=== PATIENT | male | born 1950 | race Caucasian/White ===

== ENCOUNTER 2020-09-12 16:05 | Emergency (ER) | payer MEDICARE, BC ==
--- NOTE | 2020-09-12 18:51 | EDM.PDOC ---
ED HPI GENERAL MEDICAL PROBLEM - General Chief Complaint: Respiratory Problem Stated Complaint: MAYBE POSITIVE-CHILS/FEVER ACHY Time Seen by Provider: 09/12/20 16:30 Source of Information: Reports: Patient, RN Notes Reviewed History Limitations: Reports: No Limitations - History of Present Illness INITIAL COMMENTS - FREE TEXT/NARRATIVE: Patient is a 70-year-old male presenting to the emergency department with complaints of fever, body aches, and shortness of breath. Symptoms began yesterday. He denies feeling short of breath at rest, however any exertion causes him to be winded. He was febrile yesterday, however he does not know what his exact temperature was. He was Covid tested this morning you state send out to the drive-through testing, however his shortness of breath became significant enough that he thought he should be seen. Patient has a past medical history significant for a right-sided stroke with left-sided hemiplegia, A. fib with a pacemaker/defibrillator. COPD, hypertension. Oxygen saturation on triage was 88%. He has been varying from 86 to 90% on room air since triage. He denies any chest pain or dizziness. 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 - Related Data Allergies Allergy/AdvReac Type Severity Reaction Status Date / Time IV contrast Allergy Severe Hives Uncoded 09/12/20 16:34 Home Meds: Home Meds Cholecalciferol (Vitamin D3) [Vitamin D3] 1,000 unit PO DAILY 09/12/20 [History] Clopidogrel [Plavix] 75 mg PO DAILY 09/12/20 [History] Furosemide [Lasix] 20 mg PO DAILY 09/12/20 [History] Potassium Chloride [Klor-Con M20] 20 meq PO DAILY 09/12/20 [History] Sertraline [Zoloft] 50 mg PO DAILY 09/12/20 [History] Ubidecarenone [Coq-10] 1 tab PO DAILY 09/12/20 [History] Warfarin Sodium [Jantoven] 4 mg PO DAILY 09/12/20 [History] carvediloL [Carvedilol] 25 mg PO BID 09/12/20 [History] Past Medical History Cardiovascular History: Reports: Afib, Heart Failure, Hypertension, Other (See Below) Other Cardiovascular History: carotid endartectomy/AICD Respiratory History: Reports: COPD, Pneumothorax Neurological History: Reports: CVA Other Neuro History: rt sided with left hemiplegia Oncologic (Cancer) History: Reports: Bladder - Past Surgical History HEENT Surgical History: Reports: Tonsillectomy GI Surgical History: Reports: Appendectomy ED ROS GENERAL - Review of Systems Review Of Systems: See Below Constitutional: Reports: Fever, Chills, Fatigue HEENT: Reports: No Symptoms Respiratory: Reports: Shortness of Breath, Cough. Denies: Wheezing, Pleuritic Chest Pain Cardiovascular: Reports: Dyspnea on Exertion. Denies: Chest Pain, Lightheadedness, Syncope Endocrine: Reports: No Symptoms GI/Abdominal: Reports: Diarrhea. Denies: Abdominal Pain, Nausea, Vomiting : Reports: No Symptoms Musculoskeletal: Reports: No Symptoms Skin: Reports: No Symptoms Neurological: Reports: No Symptoms Psychiatric: Reports: No Symptoms Hematologic/Lymphatic: Reports: No Symptoms Immunologic: Reports: No Symptoms ED EXAM, GENERAL - Physical Exam Exam: See Below Exam Limited By: No Limitations General Appearance: Alert, WD/WN, No Apparent Distress Respiratory/Chest: No Respiratory Distress, Lungs Clear, No Accessory Muscle Use, Chest Non-Tender, Decreased Breath Sounds (Diminished in bilateral bases) Cardiovascular: Normal Peripheral Pulses, Regular Rate, Rhythm, No Edema, No Gallop, No JVD, No Murmur, No Rub GI/Abdominal: Normal Bowel Sounds, Soft, Non-Tender, No Organomegaly, No Distention, No Abnormal Bruit, No Mass Neurological: Alert, Oriented, CN II-XII Intact, Normal Cognition, Normal Gait, Normal Reflexes, No Motor/Sensory Deficits Psychiatric: Normal Affect, Normal Mood Skin Exam: Warm, Dry, Intact, Normal Color, No Rash Course - Vital Signs Last Recorded V/S: Last Vital Signs Temp 98.3 F 09/12/20 16:25 Pulse 70 09/12/20 19:53 Resp 28 H 09/12/20 16:25 BP 195/94 H 09/12/20 19:53 Pulse Ox 88 L 09/12/20 16:25 - Orders/Labs/Meds Orders: Active Orders 24 hr Category Date Time Status EKG Documentation Completion [RC] STAT Care 09/12/20 16:37 Active Chest 1V Frontal [CR] Stat Exams 09/12/20 16:37 Taken Labs: Laboratory Tests 09/12/20 09/12/20 09/12/20 Range/Units 17:00 17:00 17:00 WBC 4.75 (4.23-9.07) K/mm3 RBC 5.18 (4.63-6.08) M/mm3 Hgb 14.7 (13.7-17.5) gm/dl Hct 48.1 (40.1-51.0) % MCV 92.9 H (79.0-92.2) fl MCH 28.4 (25.7-32.2) pg MCHC 30.6 L (32.2-35.5) g/dl RDW Std Deviation 47.2 H (35.1-43.9) fL Plt Count 152 L (163-337) K/mm3 MPV 9.8 (9.4-12.3) fl Neut % (Auto) 60.1 (34.0-67.9) % Lymph % (Auto) 14.3 L (21.8-53.1) % Crane % (Auto) 21.9 H (5.3-12.2) % Eos % (Auto) 2.7 (0.8-7.0) Baso % (Auto) 0.6 (0.1-1.2) % Neut # (Auto) 2.85 (1.78-5.38) K/mm3 Lymph # (Auto) 0.68 L (1.32-3.57) K/mm3 Crane # (Auto) 1.04 H (0.30-0.82) K/mm3 Eos # (Auto) 0.13 (0.04-0.54) K/mm3 Baso # (Auto) 0.03 (0.01-0.08) K/mm3 Manual Slide Review Abnormal smear PT (9.7-12.0) SECONDS INR D-Dimer, Quantitative 0.34 (0.19-0.50) mg/L Sodium 140 (136-145) mEq/L Potassium 4.1 (3.5-5.1) mEq/L Chloride 105 (98-107) mEq/L Carbon Dioxide 26 (21-32) mEq/L Anion Gap 13.1 (5-15) BUN 22 H (7-18) mg/dL Creatinine 1.6 H (0.7-1.3) mg/dL Est Cr Clr Drug Dosing 46.48 mL/min Estimated GFR (MDRD) 43 (>60) mL/min BUN/Creatinine Ratio 13.8 L (14-18) Glucose 102 (83-115) mg/dL Calcium 8.0 L (8.5-10.1) mg/dL Ferritin (26-388) ng/ml Total Bilirubin 0.6 (0.2-1.0) mg/dL AST 19 (15-37) U/L ALT 20 (16-63) U/L Alkaline Phosphatase 61 (46-116) U/L Lactate Dehydrogenase (85-227) U/L Troponin I < 0.017 (0.00-0.056) ng/mL C-Reactive Protein 2.0 H* (<1.0) mg/dL NT-Pro-B Natriuret Pep (0-125) pg/mL Total Protein 6.3 L (6.4-8.2) g/dl Albumin 3.1 L (3.4-5.0) g/dl Globulin 3.2 gm/dL Albumin/Globulin Ratio 1.0 (1-2) SARS-CoV-2 RNA (BEBETO) (NEGATIVE) 09/12/20 09/12/20 09/12/20 Range/Units 17:00 17:00 17:00 WBC (4.23-9.07) K/mm3 RBC (4.63-6.08) M/mm3 Hgb (13.7-17.5) gm/dl Hct (40.1-51.0) % MCV (79.0-92.2) fl MCH (25.7-32.2) pg MCHC (32.2-35.5) g/dl RDW Std Deviation (35.1-43.9) fL Plt Count (163-337) K/mm3 MPV (9.4-12.3) fl Neut % (Auto) (34.0-67.9) % Lymph % (Auto) (21.8-53.1) % Crane % (Auto) (5.3-12.2) % Eos % (Auto) (0.8-7.0) Baso % (Auto) (0.1-1.2) % Neut # (Auto) (1.78-5.38) K/mm3 Lymph # (Auto) (1.32-3.57) K/mm3 Crane # (Auto) (0.30-0.82) K/mm3 Eos # (Auto) (0.04-0.54) K/mm3 Baso # (Auto) (0.01-0.08) K/mm3 Manual Slide Review PT 29.3 H (9.7-12.0) SECONDS INR 2.79 D-Dimer, Quantitative (0.19-0.50) mg/L Sodium (136-145) mEq/L Potassium (3.5-5.1) mEq/L Chloride (98-107) mEq/L Carbon Dioxide (21-32) mEq/L Anion Gap (5-15) BUN (7-18) mg/dL Creatinine (0.7-1.3) mg/dL Est Cr Clr Drug Dosing mL/min Estimated GFR (MDRD) (>60) mL/min BUN/Creatinine Ratio (14-18) Glucose (83-115) mg/dL Calcium (8.5-10.1) mg/dL Ferritin 80 (26-388) ng/ml Total Bilirubin (0.2-1.0) mg/dL AST (15-37) U/L ALT (16-63) U/L Alkaline Phosphatase (46-116) U/L Lactate Dehydrogenase 239 H (85-227) U/L Troponin I (0.00-0.056) ng/mL C-Reactive Protein (<1.0) mg/dL NT-Pro-B Natriuret Pep (0-125) pg/mL Total Protein (6.4-8.2) g/dl Albumin (3.4-5.0) g/dl Globulin gm/dL Albumin/Globulin Ratio (1-2) SARS-CoV-2 RNA (BEBETO) (NEGATIVE) 09/12/20 09/12/20 09/12/20 Range/Units 17:00 17:40 21:05 WBC (4.23-9.07) K/mm3 RBC (4.63-6.08) M/mm3 Hgb (13.7-17.5) gm/dl Hct (40.1-51.0) % MCV (79.0-92.2) fl MCH (25.7-32.2) pg MCHC (32.2-35.5) g/dl RDW Std Deviation (35.1-43.9) fL Plt Count (163-337) K/mm3 MPV (9.4-12.3) fl Neut % (Auto) (34.0-67.9) % Lymph % (Auto) (21.8-53.1) % Crane % (Auto) (5.3-12.2) % Eos % (Auto) (0.8-7.0) Baso % (Auto) (0.1-1.2) % Neut # (Auto) (1.78-5.38) K/mm3 Lymph # (Auto) (1.32-3.57) K/mm3 Crane # (Auto) (0.30-0.82) K/mm3 Eos # (Auto) (0.04-0.54) K/mm3 Baso # (Auto) (0.01-0.08) K/mm3 Manual Slide Review PT 28.8 H (9.7-12.0) SECONDS INR 2.75 D-Dimer, Quantitative (0.19-0.50) mg/L Sodium (136-145) mEq/L Potassium (3.5-5.1) mEq/L Chloride (98-107) mEq/L Carbon Dioxide (21-32) mEq/L Anion Gap (5-15) BUN (7-18) mg/dL Creatinine (0.7-1.3) mg/dL Est Cr Clr Drug Dosing mL/min Estimated GFR (MDRD) (>60) mL/min BUN/Creatinine Ratio (14-18) Glucose (83-115) mg/dL Calcium (8.5-10.1) mg/dL Ferritin (26-388) ng/ml Total Bilirubin (0.2-1.0) mg/dL AST (15-37) U/L ALT (16-63) U/L Alkaline Phosphatase (46-116) U/L Lactate Dehydrogenase (85-227) U/L Troponin I (0.00-0.056) ng/mL C-Reactive Protein (<1.0) mg/dL NT-Pro-B Natriuret Pep 3003 H (0-125) pg/mL Total Protein (6.4-8.2) g/dl Albumin (3.4-5.0) g/dl Globulin gm/dL Albumin/Globulin Ratio (1-2) SARS-CoV-2 RNA (BEBETO) Positive H (NEGATIVE) Meds: Medications Discontinued Medications Generic Name Dose Route Start Last Admin Trade Name Codi PRN Reason Stop Dose Admin Carvedilol 25 mg 09/12/20 19:48 09/12/20 19:53 Coreg PO 09/12/20 19:49 25 mg ONETIME ONE Administration Dexamethasone 6 mg 09/12/20 19:00 09/12/20 19:19 Dexamethasone IV 09/12/20 19:01 6 mg ONETIME ONE Administration Furosemide 20 mg 09/12/20 20:08 09/12/20 20:17 Lasix IVPUSH 09/12/20 20:09 20 mg ONETIME ONE Administration Sertraline HCl 50 mg 09/12/20 20:49 09/12/20 21:03 Zoloft PO 09/12/20 20:50 50 mg ONETIME ONE Administration Warfarin Sodium 4 mg 09/12/20 20:47 09/12/20 21:03 Coumadin PO 09/12/20 20:48 4 mg ONETIME ONE Administration - Re-Assessments/Exams Free Text/Narrative Re-Assessment/Exam: Patient is a 70-year-old male presenting to the emergency department with complaints of fever, cough, shortness of breath. Symptoms started yesterday. He does have a fairly significant past medical history including CVA with left- sided hemiplegia, A. fib with a pacemaker/defibrillator, collapsed lung, COPD, high blood pressure. He is currently on Coumadin. States his INR was checked last week. Patient's oxygen saturations have been ranging from 85 to 90% on room air. Lung sounds are diminished in the bases. Presentation is highly suspicious for Covid. I have ordered a CBC, CMP, CRP, D-dimer, troponin, EKG, chest x-ray, and a 1 hour Covid test. 09/12/20 20:20 Hematology was significant for BUN 22, creatinine 1.6, LDH 239, CRP 2.0, proBNP 3003. Patient is Covid positive. Chest x-ray shows nonspecific bibasilar consolidation consistent with atelectasis, edema, or pneumonia. Left pleural effusion is present. Patient is currently on 2 L of oxygen satting in the mid to upper 90s. I do feel that he would benefit from a hospital admission with treatment with dexamethasone on remdesivir as he is only 2 days into the course of his illness and he is currently hypoxic. I have ordered dexamethasone 6 mg IV as well as his home dose of carvedilol. I will give him Lasix 20 mg IV given his hypoxia, shortness of breath, and elevated proBNP. He normally takes Lasix 25 mg p.o. at home. We have called essentially every hospital facility in [place] and unfortunately there are no beds available. He is currently on a wait list at [facility]. Patient had stated that he would like to go home with home oxygen and steroids, however after visiting with his who is a power of coal chute worker, she states that his decision-making skills are impaired since his stroke. She does not want him to be discharged home with home oxygen and would like him admitted to a hospital. We will continue to look for hospital availability. If none are available, he will have to stay in the emergency department until [facility] contacts us or another bed becomes available. 09/12/[id number] Spoke with Dr. Henry at [facility]. He has accepted the patient for transfer. Unfortunately, they do not have air ambulance available through their facility. We will work on arranging air transport for the patient. Departure - Departure Time of Disposition: 21:35 Disposition: DC/Tfer to Acute Hospital 02 Condition: Good Clinical Impression: Pneumonia due to COVID-19 virus - Discharge Information Referrals: Vandana Gonzalez MD [Primary Care Provider] - Forms: ED Department Discharge Sepsis Event Note (ED) - Evaluation Sepsis Screening Result: Possible Sepsis Risk - Focused Exam Vital Signs: Vital Signs Temp Pulse Pulse Resp BP BP Pulse Ox 09/12/20 19:53 70 195/94 H 09/12/20 16:25 98.3 F 70 28 H 153/79 H 88 L - My Orders Last 24 Hours: My Active Orders 09/12/20 16:37 EKG Documentation Completion [RC] STAT Chest 1V Frontal [CR] Stat - Assessment/Plan Last 24 Hours: My Active Orders 09/12/20 16:37 EKG Documentation Completion [RC] STAT Chest 1V Frontal [CR] Stat
[2020-09-12] MEDS ORDERED: Dexamethasone 4 MG/ML 5 ML MDV IV ONE (19:00)
[2020-09-12] MEDS ORDERED: Carvedilol 12.5 MG Tab PO ONE (19:48)
[2020-09-12] MEDS ORDERED: Furosemide 20 MG/2 ML VIAL IVPUSH ONE (20:08)
[2020-09-12] MEDS ORDERED: Warfarin 4 MG Tab PO ONE (20:47)
[2020-09-12] MEDS ORDERED: Sertraline 50 MG Tab PO ONE (20:49)
--- NOTE | 2020-09-13 08:41 | CR ---
PROCEDURE INFORMATION: Exam: XR Chest, 1 View Exam date and time: 09/12/2020 4:23 PM Age: 70 years old Clinical indication: Shortness of breath; Patient HX: Covid precautions TECHNIQUE: Imaging protocol: XR of the chest Views: 1 view. COMPARISON: No relevant prior studies available. FINDINGS: Tubes, catheters and devices: A pacemaker device is present, and its leads are in appropriate position. Lungs: Nonspecific bibasilar consolidation is present, consistent with atelectasis, edema, or pneumonia. Pleural space: Left pleural effusion is present. Heart/Mediastinum: The heart demonstrates mild diffuse enlargement. Vasculature: The vasculature demonstrates diffuse mild atherosclerotic calcification. Bones/joints: Unremarkable. IMPRESSION: 1. Nonspecific bibasilar consolidation is present, consistent with atelectasis, edema, or pneumonia. 2. Left pleural effusion is present. Thank you for allowing us to participate in the care of your patient. Dictated and Authenticated by: Diego Jones DO 09/12/2020 5:58 PM Central Time ([place] & [place]) MTDD
== END 2020-09-13 00:15 ==
LOC: JD.ED 16:05
DX: U07.1 COVID-19 (principal); J12.89 Other viral pneumonia; I11.0 Hypertensive heart disease with heart failure; I50.9 Heart failure, unspecified; J44.9 Chronic obstructive pulmonary disease, unspecified; Z86.73 Personal history of transient ischemic attack (TIA), and cerebral infarction without residual deficits; Z91.041 Radiographic dye allergy status; Z79.02 Long term (current) use of antithrombotics/antiplatelets; Z79.899 Other long term (current) drug therapy; Z79.01 Long term (current) use of anticoagulants
CPT/HCPCS: 36415; 71045; 80053; 82728; 83615; 83880; 84484; 85025; 85379; 85610; 86140; 93005; 96374; 96375; 99285; A9270; J1100; J1940; U0002; 93010; 99284

== ENCOUNTER 2021-03-08 12:11 | Emergency (ER) | payer MEDICARE, BC ==
--- NOTE | 2021-03-08 13:05 | EDM.PDOC ---
ED HPI GENERAL MEDICAL PROBLEM - General Chief Complaint: Lower Extremity Injury/Pain Stated Complaint: LEG PAIN Time Seen by Provider: 03/08/21 12:35 Source of Information: Reports: Patient, RN Notes Reviewed History Limitations: Reports: No Limitations - History of Present Illness INITIAL COMMENTS - FREE TEXT/NARRATIVE: Patient is a 70-year-old male who presents to the ER for his right knee pain. Patient has multiple medical issues, he has had a previous stroke with a left- sided neurological deficit. Recently had a defibrillator replaced to his right chest, and is subsequently on doxycycline for suspected infection, had COVID-19 at the end of 2019, and is now subsequently on oxygen as well. Patient was told that he should not exert more than 5 pounds of force or lift more than 5 pounds with his right hand after the defibrillator was placed 1 week ago. Since then, he has been struggling to try to get up and out of chairs with handles due to this right arm restriction. Notes that he has pain in his right lateral knee, as they feel he might be trying to overcompensate on the right side for this. Also notes that he has [id number] issues with his left knee, and sees Dr. العراقي for injections of the left knee. Those seem to help when he does take it. He did take Tylenol for the right knee pain, this seemed to help as well. Patient was feeling well prior to this and denies any fevers or chills, cough or worsening shortness of breath. The symptoms all started at around 4 or 5 PM yesterday. He has recently been started on his Plavix, and will resume his Coumadin shortly again. Right Leg Pain Score (Numeric/FACES): 8 - Related Data Allergies Allergy/AdvReac Type Severity Reaction Status Date / Time IV contrast Allergy Severe Hives Uncoded 09/12/20 16:34 Home Meds: Home Meds Cholecalciferol (Vitamin D3) [Vitamin D3] 1,000 unit PO DAILY 09/12/20 [History] Clopidogrel [Plavix] 75 mg PO DAILY 09/12/20 [History] Furosemide [Lasix] 20 mg PO DAILY 09/12/20 [History] Potassium Chloride [Klor-Con M20] 20 meq PO DAILY 09/12/20 [History] Sertraline [Zoloft] 50 mg PO DAILY 09/12/20 [History] Ubidecarenone [Coq-10] 1 tab PO DAILY 09/12/20 [History] Warfarin Sodium [Jantoven] 4 mg PO DAILY 09/12/20 [History] carvediloL [Carvedilol] 25 mg PO BID 09/12/20 [History] Hydrocodone/Acetaminophen [Hydrocodone-Acetamin 5-325 mg] 1 each PO Q6H PRN #12 tablet 03/08/21 [Rx] Past Medical History Cardiovascular History: Reports: Afib, Heart Failure, Hypertension, Other (See Below) Other Cardiovascular History: carotid endartectomy/AICD Respiratory History: Reports: COPD, Pneumonia, Recurrent, Pneumothorax Genitourinary History: Reports: Urinary Incontinence Musculoskeletal History: Reports: Fracture Neurological History: Reports: CVA Other Neuro History: rt sided with left hemiplegia Oncologic (Cancer) History: Reports: Bladder, Squamous Cell Carcinoma Other Dermatologic History: skin cancer. - Infectious Disease History Infectious Disease History: Reports: Chicken Pox, Measles, Mumps, Novel Coronavirus - Past Surgical History HEENT Surgical History: Reports: Tonsillectomy Cardiovascular Surgical History: Reports: Other (See Below) Other Cardiovascular Surgeries/Procedures: defibrillator. GI Surgical History: Reports: Appendectomy Musculoskeletal Surgical History: Reports: Other (See Below) Other Musculoskeletal Surgeries/Procedures:: hip fx Dermatological Surgical History: Reports: Skin Biopsy Social & Family History - Tobacco Use Tobacco Use Status *Q: Never Tobacco User Second Hand Smoke Exposure: No - Caffeine Use Caffeine Use: Reports: Coffee, Soda - Recreational Drug Use Recreational Drug Use: No Review of Systems - Review of Systems Review Of Systems: Comprehensive ROS is negative, except as noted in HPI. ED EXAM, GENERAL - Physical Exam Exam: See Below Exam Limited By: No Limitations General Appearance: Alert, WD/WN, No Apparent Distress Respiratory/Chest: No Respiratory Distress, Lungs Clear, Normal Breath Sounds, No Accessory Muscle Use, Chest Non-Tender Cardiovascular: Normal Peripheral Pulses, Regular Rate, Rhythm, No Edema Peripheral Pulses: 2+: Radial (L), Radial (R), Dorsalis Pedis (L), Dorsalis Pedis (R) Extremities: Normal Inspection, Limited Range of Motion (of right knee d/t pain). No: Joint Swelling, Yola's Sign, Increased Warmth, Redness Neurological: Alert, Oriented, Normal Cognition, Sensory/Motor Deficit (L sided weakness/neuro defecit from stroke, not worsened from baseline) Psychiatric: Normal Affect, Normal Mood Skin Exam: Warm, Dry, Intact, Normal Color, No Rash, Other (Healing wound pocket to the right upper anterior chest, at the site of the defibrillator insertion no active drainage, states this is tender but not more tender than normal healing processes.) Course - Vital Signs Last Recorded V/S: Last Vital Signs Temp 97.2 F 03/08/21 12:11 Pulse 70 03/08/21 12:11 Resp 20 03/08/21 12:11 BP 145/69 H 03/08/21 12:11 Pulse Ox 97 03/08/21 12:11 - Re-Assessments/Exams Free Text/Narrative Re-Assessment/Exam: 03/08/21 13:07 Patient presents to the ER for his right knee pain. We will go ahead and get x- rays to make sure there is no bony abnormalities, as the states he has had a previous chip fracture, and the patient states this feels similar to that time. They are not concerned about his other medical problems as they are being taken care of by his regular care provider and historic site administrator. 03/08/21 13:35 The patient's x-rays have been obtained, there is some mild degenerative changes noted above but no acute fracture or other bony abnormality appreciated. and patient are concerned about his decreasing strength/increasing weakness due to recent defibrillator placement and loss of motor function for the most part. I have consulted our social work department for possible in-home PT as they noted when he did PT after his Covid 19 infection, this seemed to help provide him quite a bit of mobility again. They are willing to accept in-home services, more than what they already have due to the patient's declining health status. 03/08/21 13:58 Our social work specialist, Irina was in to talk with the patient and his , and aft er discussion, they are interested in may be reentering the long term again for strength training purposes. Irina is going to call [facility] to see if they would readmit the patient, hopefully as early as tomorrow. I will await to see what sort of evaluation they would require prior to admission regarding possible Covid screen/further labs, ETC. 03/08/21 15:02 I did talk with our social work specialist, Irina and she was able to get the patient readmitted to [facility] for tomorrow 03/09/2021 at 9 AM in the morning. Patient was requesting a dose of Tylenol before leaving this ER due to his knee pain we will go ahead and order that, and discharge the patient into his home care for admission to [facility] tomorrow morning. The patient's and patient are okay with this plan and verbalized understanding. Departure - Departure Time of Disposition: 15:04 Disposition: Home, Self-Care 01 Condition: Good Clinical Impression: Weakness, FTT (failure to thrive) in adult Right knee pain Qualifiers: Chronicity: acute Qualified Code(s): M25.561 - Pain in right knee - Discharge Information *PRESCRIPTION DRUG MONITORING PROGRAM REVIEWED*: Yes *COPY OF PRESCRIPTION DRUG MONITORING REPORT IN PATIENT IBRAHIMA: No Prescriptions: Hydrocodone/Acetaminophen [Hydrocodone-Acetamin 5-325 mg] 1 each PO Q6H PRN #12 tablet PRN Reason: Pain Instructions: Failure to Thrive, Adult, [id number], Acute Knee Pain, Adult, [id number] Referrals: Logan Wan MD [Primary Care Provider] - Forms: ED Department Discharge Additional Instructions: You were seen in this ER for your right knee pain. X-rays of your knee demonstrate no acute fractures or other bony abnormalities of your right knee, there is some degenerative change noted. You may use 1000 g Tylenol every 6 hours as needed for further pain relief. Do not exceed 4000 mg Tylenol in a 24-hour time span. You were given a prescription for a strong pain medication, hydrocodone/acetaminophen 5/325 mg, please take 1 tab every 6 hours as needed for pain not relieved by Tylenol or ibuprofen alone. Please note this medication does contain Tylenol in it, so do not take more than 4000 mg in a 24- hour time span. These medications can be addictive, so please take as few as possible to achieve adequate pain control. These meds can also be quite constipating, recommend that you increase your oral fluid intake and take a stool softener like MiraLAX while taking these medications. Do not drive while taking this medication. This medication was electronically prescribed to the [facility] located in [facility]. Due to your reported weakness, and multiple health issues, it was deemed appropriate to send you back to [facility] for ongoing rehab. Our social work worker was able to get you readmitted into the [facility], tomorrow morning at 9 AM. At this time, you are being discharged home, please continue all medications as directed by your regular care provider, gathered belongings in order for the patient to go to the long term and report to [facility] at 9 AM tomorrow morning, for long term admission. Please return to the ER at any time if symptoms change or worsen. Sepsis Event Note (ED) - Evaluation Sepsis Screening Result: No Definite Risk - Focused Exam Vital Signs: Vital Signs Temp Pulse Resp BP Pulse Ox 03/08/21 12:11 97.2 F 70 20 145/69 H 97
--- NOTE | 2021-03-08 13:17 | CR ---
Right knee: 4 views of the right knee were obtained. Comparison: No prior knee study is available. Vascular calcification is seen. Spur is noted off the inferior and superior patella at the attachment of the quadriceps tendon and patellar ligament. Mild joint space narrowing is noted medially. Lateral joint space narrowing is minimally narrowed. No acute fracture or other abnormality is appreciated. Impression: 1. Mild degenerative change as noted above. 2. Vascular calcification. Diagnostic code #2
[2021-03-08] MEDS ORDERED: Acetaminophen 325 MG Tab PO ONE ×2 (15:05→15:06)
== END 2021-03-08 16:00 | disposition home or self-care (01) ==
LOC: JD.ED 12:11 → SUPCPDRO 12:11 → JD.ED 16:00
DX: M25.561 Pain in right knee (principal); R62.7 Adult failure to thrive; R53.1 Weakness; I48.91 Unspecified atrial fibrillation; I11.0 Hypertensive heart disease with heart failure; I50.9 Heart failure, unspecified; Z91.041 Radiographic dye allergy status; Z79.02 Long term (current) use of antithrombotics/antiplatelets; Z79.01 Long term (current) use of anticoagulants; Z95.810 Presence of automatic (implantable) cardiac defibrillator; Z79.899 Other long term (current) drug therapy
CPT/HCPCS: 73564; 99284; A9270; 99285

== ENCOUNTER 2021-06-15 16:02 | Emergency (ER) | payer MEDICARE, BC ==
--- NOTE | 2021-06-15 16:38 | EDM.PDOC ---
ED HPI GENERAL MEDICAL PROBLEM - General Chief Complaint: Abdominal Pain Stated Complaint: ABDOMINAL PAIN Time Seen by Provider: 06/15/21 16:26 Source of Information: Reports: Patient, Family (spouse) History Limitations: Reports: No Limitations - History of Present Illness INITIAL COMMENTS - FREE TEXT/NARRATIVE: 71-year-old male with multiple medical problems presents to the ED with diffuse periumbilical pain which is a dull ache for about 24 hours and occasionally sharp and stabbing. It is worse with deep breathing, coughing or standing fully erect. He recognizes that he is fairly had a umbilical hernia for a lengthy period of time but is never been problematic before. He has had no previous repair of umbilical hernia. He has had a laparoscopic cholecystectomy performed to the inferior umbilicus. He has not had an open appendectomy. He has had a surgery left upper anterior chest and left upper quadrant of the abdomen apparently performed by a surgeon who lost a guidewire into his liver at time of central line placement in his femoral vein. He has a pacemaker/defibrillator right upper anterior chest which was recently changed from the right upper quadrant with attempt to remove wires which failed. He had bad been having infection in the pacemaker insertion site left upper anterior chest and suspect MRSA. However the cardiovascular surgeon was unable to remove the wires completely at the time of surgery. Patient has a dense left-sided hemiparesis particular involving his left arm. He is able to stand and walk with a definitive limp, left side. CVA occurred approximately 13 years ago. History of bladder cancer treated with fulguration and cauterization and BCG treatments. Still having cystoscopy on a yearly basis. He has had left-sided carotid endarterectomy with stenting x2 due to development of a carotid artery aneurysm. He denies noted fever or chills. No problems with bowel function I normal this morning. Decreased appetite. Feels nauseated without vomiting. Patient is on both Coumadin and Plavix. Onset: Gradual Onset Date: 06/14/21 Onset Time: 17:00 Duration: Hour(s):, Constant ( gradually worsening.), Getting Worse (4 hours) Location: Reports: Abdomen (Pain at the umbilicus made worse by deep breathing, coughing and standing fully erect. Known umbilical hernia) Quality: Reports: Ache, Pressure, Sharp (Pain is occasional sharp and stabbing.), Stabbing Severity: Moderate (4-5 out of 10.) Improves with: Reports: Rest (And holding still slightly supinated is the best position.) Worsens with: Reports: Other (Worsens with standing fully erect, coughing and deep breathing.) Context: Denies: Activity, Exercise, Lifting, Sick Contact, Trauma, Other Associated Symptoms: Reports: Cough, Loss of Appetite, Malaise (Creased appetite.), Nausea/Vomiting, Shortness of Breath ( Chronic fatigue and malaise.), Weakness (Nausea without vomiting.). Denies: No Other Symptoms, Confusion (Nonproductive.), Chest Pain, cough w sputum, Diaphoresis, Fever/Chills, Headaches, Rash (Niccoli.), Seizure, Syncope Treatments BUSINESS SUPPORT SPECIALIST: Reports: Other (see below) (No recent changes in medications.) Abdomen Pain Score (Numeric/FACES): 2 - Related Data Allergies Allergy/AdvReac Type Severity Reaction Status Date / Time doxycycline Allergy Abdominal Verified 06/15/21 16:32 Pain Iodinated Contrast Media Allergy Hives Verified 06/15/21 16:23 ketorolac [From Toradol] Allergy Hypertensio Verified 06/15/21 16:23 n Home Meds: Home Meds Cholecalciferol (Vitamin D3) [Vitamin D3] 2,000 unit PO DAILY 09/12/20 [History] Clopidogrel [Plavix] 75 mg PO DAILY 09/12/20 [History] Furosemide [Lasix] 20 mg PO DAILY 09/12/20 [History] Potassium Chloride [Klor-Con M20] 20 meq PO DAILY 09/12/20 [History] Sertraline [Zoloft] 50 mg PO DAILY 09/12/20 [History] Ubidecarenone [Coq-10] 100 mg PO DAILY 09/12/20 [History] carvediloL [Carvedilol] 25 mg PO BID 09/12/20 [History] Acetaminophen [Tylenol] 650 mg PO ASDIRECTED PRN 06/15/21 [History] Furosemide [Lasix] 40 mg PO ASDIRECTED #30 tab 06/15/21 [Rx] Lactobacillus Acidophilus [Acidophilus Lactobacillus] 1 gm MC DAILY 06/15/21 [History] Sennosides/Docusate Sodium [Senna Plus 8.6-50 mg Tablet] 2 tab PO DAILY PRN 06/15/21 [History] Warfarin Sodium [Jantoven] 2 mg PO ASDIRECTED 06/15/21 [History] Past Medical History Cardiovascular History: Reports: Afib (Chronic.), Automatic Implantable Cardioverter Defibrillators (Initially left upper anterior chest and this was recently removed within the last 8 months and a new cardiac defibrillator pacemaker was placed right upper anterior chest. Apparently there was some complications on the left side with infection.), Heart Failure, Hypertension, Other (See Below) Other Cardiovascular History: carotid endartectomy/AICD. Left carotid stenting and endarterectomy. Respiratory History: Reports: COPD, Pneumonia, Recurrent, Pneumothorax Genitourinary History: Reports: Urinary Incontinence Musculoskeletal History: Reports: Arthritis, Fracture Neurological History: Reports: CVA Other Neuro History: rt sided with left hemiplegia Oncologic (Cancer) History: Reports: Bladder, Squamous Cell Carcinoma Other Dermatologic History: skin cancer. - Infectious Disease History Infectious Disease History: Reports: Chicken Pox, Measles, Mumps, Novel Cor onavirus - Past Surgical History HEENT Surgical History: Reports: Tonsillectomy Cardiovascular Surgical History: Reports: Other (See Below) Other Cardiovascular Surgeries/Procedures: defibrillator GI Surgical History: Reports: Appendectomy Musculoskeletal Surgical History: Reports: Other (See Below) Other Musculoskeletal Surgeries/Procedures:: hip fx Dermatological Surgical History: Reports: Skin Biopsy Social & Family History - Tobacco Use Tobacco Use Status *Q: Former Tobacco User Used Tobacco, but Quit: Yes Month/Year Tobacco Last Used: 11/2007 - Caffeine Use Caffeine Use: Reports: Coffee - Recreational Drug Use Recreational Drug Use: No - Living Situation & Occupation Living situation: Reports: Occupation: Disabled (Stable post CVA 13 years ago) ED [facility] - Review of Systems Review Of Systems: See Below Constitutional: Reports: Malaise, Fatigue, Decreased Appetite. Denies: Fever, Chills, Weight Loss HEENT: Reports: Glasses, Other (Denies any peripheral vision defects left eye post CVA.) Respiratory: Reports: Shortness of Breath, Cough (Unproductive cough). Denies: Wheezing Cardiovascular: Reports: Blood Pressure Problem, Dyspnea on Exertion (Occasional lightheaded and dizziness.), Edema (Chronic lower dependent edema mostly around distal tib-fib's but reports recently worsened since coming home from the jail.), Lightheadedness, Orthopnea (Running hypertension). Denies: Chest Pain, Claudication Endocrine: Reports: Fatigue GI/Abdominal: Reports: Abdominal Pain (See history of present illness.), Decreased Appetite, Difficulty Swallowing (Occasionally over the last 13 years since CVA.), Other (Those are usually regular every morning.). Denies: Constipation, Diarrhea, Distension, Flatus, Hematemesis, Hematochezia, Melena : Reports: Frequency, Other (1 BPH.) Musculoskeletal: Reports: Neck Pain, Shoulder Pain, Back Pain, Joint Pain (Knees and hips.) Skin: Reports: Bruising (Is on Coumadin and Plavix.). Denies: Jaundice, Mottled, Pallor, Diaphoresis Neurological: Reports: Dizziness (Occasional.), Difficulty Walking (Left side. Likely due to left-sided weakness post CVA.), Weakness, Other (Left-sided hemiparesis primarily affecting his left upper extremity and less involved his his left lower extremity. He has no facial weakness or visual disturbance. CVA was approximately 13 years ago). Denies: Confusion, Headache, Numbness, Seizure, Syncope, Tingling, Tremors Psychiatric: Reports: Depression Hematologic/Lymphatic: Reports: No Symptoms Immunologic: Reports: No Symptoms ED EXAM, GI/ABD - Physical Exam Exam: See Below Exam Limited By: No Limitations (Patient communicates effectively.) General Appearance: Alert, Mild Distress, Other (Vital signs show temperature 36.9 degrees with a heart rate of 70 and appears regular on the monitor with a atrial paced beats. Underlying rhythm appears to be atrial fibrillation. Respiratory is 18 with O2 sats of 91%. Patient was placed on 2 L of oxygen per nasal prongs. BP elevated 1 6597) Eyes: Bilateral: Normal Appearance (Blepharal pallor or scleral icterus.) Throat/Mouth: Normal Inspection, Normal Lips, Normal Oropharynx, Other (Is mildly dry.) Head: Atraumatic, Normocephalic Neck: Normal Inspection, Limited Range of Motion (She has reduced lateral flexion and extension of the cervical spine.), Tender Lateral (He states no worse than normal.), Other (Patient has a left carotid endarterectomy scar. Very slight bruit appreciated on examination. No bruit on the right side.). No: Lymphadenopathy (L), Lymphadenopathy (R) Respiratory/Chest: Respiratory Distress (Mild tachypnea at rest.), Decreased Breath Sounds (Diminished breath sounds to both lung cardenas but worse on the left side. Suspect left hemidiaphragm is not moving normally.), Rales (Coarse rales with rhonchi left lung base both anteriorly and posteriorly.). No: Lungs Clear, Normal Breath Sounds Cardiovascular: Regular Rate, Rhythm (She will paced rhythm at 70 bpm.), No Gallop, No Murmur, No Rub, Other (Pacemaker defibrillator right upper anterior chest. Healed scar left upper anterior chest with removal of previous pacemaker). No: Normal Peripheral Pulses, No Edema GI/Abdominal Exam: No Organomegaly (No palpable organomegaly.), Distended (Mildly distended and tympanic to percussion.), Tender (Marked tenderness to palpation around the umbilicus and obvious umbilical hernia measuring about 1.2 cm firm to palpation right side of umbilicus at the 9:00 to 11 o'clock position looking at him from his feet.), Abnormal Bowel Sounds (Bowel sounds are hypoactive in all 4 quadrants.), Hernia (Incarcerated umbilical hernia clinically). No: Guarding, Rigid, Rebound Back Exam: Vertebral Tenderness (Throughout the thoracic and lumbar spine. Patient when he stands up is rigid. He cannot forward flex at all due to autofusion of his lower thoracic and lumbar spine), Other (Patient has a skin lesion measuring approximately 1.2 cm in diameter which is slightly erythematous with an ulcerated area in its middle. It is protruding from the right upper back over his shoulder blade approximately 1 cm. It appears to be an underlying sebaceous cyst clinically.). No: Full Range of Motion, CVA Tenderness (L), CVA Tenderness (R) Extremities: Pedal Edema (Mild pedal edema around both ankles. There is associated chronic venous stasis dermatitis.), Other (He has osteoarthritic changes both knees and reduced range of motion of both hips.). No: Normal Inspection, Normal Range of Motion Neurological: Alert, Oriented, CN II-XII Intact, Normal Cognition, Other (Is no ability to move his left upper extremity. He remains flexed at his elbow with flexion contracture. He has normal sensation. His hand stays in the closed fist position on the left side. Right upper extremity has decreased ability to abduct and forward flex his right shoulder due to rotator ). No: Normal Gait (Patient can ambulate but has a definitive limp due to previous CVA and impairment of his left leg function.), Normal Reflexes, No Motor/Sensory Deficits Psychiatric: Normal Affect, Normal Mood Skin Exam: Warm, Dry, Intact, Normal Color, Other (And lesion right upper back over his scapula protruding from his back by 1 cm. Slightly ulcerated area in the midline of this lesion.) #1 Interpretation EKG Date: 06/15/21 Time: 17:44 Rate (Beats/Min): 70 [place]: RAD-Right [place] Deviation (At 206) P-Wave: Variable QRS: Other (There are Q waves in leads V1, lead III, aVF and near Q-wave lead to suspect old inferior wall myocardial infarction.) ST-T: Other (T wave inversion leads III, aVF, and V1 to V6. Consider lore septal ischemia.) QT: Prolonged (Mildly prolonged) EKG Interpretation Comments: Abnormal ECG Course - Vital Signs Last Recorded V/S: Last Vital Signs Temp 36.9 C 06/15/21 16:19 Pulse 70 06/15/21 16:19 Resp 18 06/15/21 16:19 BP 165/97 H 06/15/21 16:19 Pulse Ox 91 L 06/15/21 16:19 - Orders/Labs/Meds Orders: Active Orders 24 hr Category Date Time Status Consult to Physician [CONS] Urgent Cons 06/15/21 19:53 Active Abdomen Pelvis wo Cont [CT] Stat Exams 06/15/21 17:07 Taken Chest 1V Frontal [CR] Stat Exams 06/15/21 16:41 Taken Labs: Laboratory Tests 06/15/21 06/15/21 06/15/21 Range/Units 17:19 17:19 17:19 WBC 9.35 H (4.23-9.07) K/mm3 RBC 5.24 (4.63-6.08) M/mm3 Hgb 15.2 (13.7-17.5) gm/dl Hct 49.7 (40.1-51.0) % MCV 94.8 H (79.0-92.2) fl MCH 29.0 (25.7-32.2) pg MCHC 30.6 L (32.2-35.5) g/dl RDW Std Deviation 51.0 H (35.1-43.9) fL Plt Count 172 (163-337) K/mm3 MPV 10.0 (9.4-12.3) fl Neut % (Auto) 71.3 H (34.0-67.9) % Lymph % (Auto) 16.8 L (21.8-53.1) % Castro % (Auto) 9.3 (5.3-12.2) % Eos % (Auto) 1.7 (0.8-7.0) Baso % (Auto) 0.3 (0.1-1.2) % Neut # (Auto) 6.66 H (1.78-5.38) K/mm3 Lymph # (Auto) 1.57 (1.32-3.57) K/mm3 Castro # (Auto) 0.87 H (0.30-0.82) K/mm3 Eos # (Auto) 0.16 (0.04-0.54) K/mm3 Baso # (Auto) 0.03 (0.01-0.08) K/mm3 PT 33.4 H (9.7-12.0) SECONDS INR 3.19 APTT 42.9 H (21.7-31.4) SECONDS Sodium 144 (136-145) mEq/L Potassium 4.4 (3.5-5.1) mEq/L Chloride 109 H (98-107) mEq/L Carbon Dioxide 26 (21-32) mEq/L Anion Gap 13.4 (5-15) BUN 20 H (7-18) mg/dL Creatinine 1.2 (0.7-1.3) mg/dL Est Cr Clr Drug Dosing 66.50 mL/min Estimated GFR (MDRD) 60 (>60) mL/min BUN/Creatinine Ratio 16.7 (14-18) Glucose 95 (70-99) mg/dL POC Glucose (70-99) mg/dL Calcium 8.4 L (8.5-10.1) mg/dL Magnesium 2.1 (1.8-2.4) mg/dL Total Bilirubin 0.9 (0.2-1.0) mg/dL AST 24 (15-37) U/L ALT 39 (16-63) U/L Alkaline Phosphatase 66 (46-116) U/L C-Reactive Protein 0.6 (<1.0) mg/dL NT-Pro-B Natriuret Pep (0-125) pg/mL Total Protein 7.2 (6.4-8.2) g/dl Albumin 3.6 (3.4-5.0) g/dl Globulin 3.6 gm/dL Albumin/Globulin Ratio 1.0 (1-2) Urine Color (Yellow) Urine Appearance (Clear) Urine pH (5.0-8.0) Ur Specific Hewitt (1.005-1.030) Urine Protein (Negative) Urine Glucose (UA) (Negative) Urine Ketones (Negative) Urine Occult Blood (Negative) Urine Nitrite (Negative) Urine Bilirubin (Negative) Urine Urobilinogen (0.2-1.0) Ur Leukocyte Esterase (Negative) U Hyaline Cast (Auto) (0-5) /lpf Urine RBC (0-5) /hpf Urine WBC (0-5) /hpf Ur Epithelial Cells (0-5) /hpf Urine Bacteria (FEW) /hpf Urine Mucus (FEW) /hpf 06/15/21 06/15/21 06/15/21 Range/Units 17:19 17:30 21:02 WBC (4.23-9.07) K/mm3 RBC (4.63-6.08) M/mm3 Hgb (13.7-17.5) gm/dl Hct (40.1-51.0) % MCV (79.0-92.2) fl MCH (25.7-32.2) pg MCHC (32.2-35.5) g/dl RDW Std Deviation (35.1-43.9) fL Plt Count (163-337) K/mm3 MPV (9.4-12.3) fl Neut % (Auto) (34.0-67.9) % Lymph % (Auto) (21.8-53.1) % Castro % (Auto) (5.3-12.2) % Eos % (Auto) (0.8-7.0) Baso % (Auto) (0.1-1.2) % Neut # (Auto) (1.78-5.38) K/mm3 Lymph # (Auto) (1.32-3.57) K/mm3 Castro # (Auto) (0.30-0.82) K/mm3 Eos # (Auto) (0.04-0.54) K/mm3 Baso # (Auto) (0.01-0.08) K/mm3 PT (9.7-12.0) SECONDS INR APTT (21.7-31.4) SECONDS Sodium (136-145) mEq/L Potassium (3.5-5.1) mEq/L Chloride (98-107) mEq/L Carbon Dioxide (21-32) mEq/L Anion Gap (5-15) BUN (7-18) mg/dL Creatinine (0.7-1.3) mg/dL Est Cr Clr Drug Dosing mL/min Estimated GFR (MDRD) (>60) mL/min BUN/Creatinine Ratio (14-18) Glucose (70-99) mg/dL POC Glucose 106 H (70-99) mg/dL Calcium (8.5-10.1) mg/dL Magnesium (1.8-2.4) mg/dL Total Bilirubin (0.2-1.0) mg/dL AST (15-37) U/L ALT (16-63) U/L Alkaline Phosphatase (46-116) U/L C-Reactive Protein (<1.0) mg/dL NT-Pro-B Natriuret Pep 83262 H (0-125) pg/mL Total Protein (6.4-8.2) g/dl Albumin (3.4-5.0) g/dl Globulin gm/dL Albumin/Globulin Ratio (1-2) Urine Color Yellow (Yellow) Urine Appearance Clear (Clear) Urine pH 6.0 (5.0-8.0) Ur Specific Hewitt 1.025 (1.005-1.030) Urine Protein Negative (Negative) Urine Glucose (UA) Negative (Negative) Urine Ketones Negative (Negative) Urine Occult Blood Negative (Negative) Urine Nitrite Negative (Negative) Urine Bilirubin Negative (Negative) Urine Urobilinogen 0.2 (0.2-1.0) Ur Leukocyte Esterase Negative (Negative) U Hyaline Cast (Auto) 5-10 H (0-5) /lpf Urine RBC 0-5 (0-5) /hpf Urine WBC 0-5 (0-5) /hpf Ur Epithelial Cells 0-5 (0-5) /hpf Urine Bacteria Moderate H (FEW) /hpf Urine Mucus Few (FEW) /hpf Meds: Medications Discontinued Medications Generic Name Dose Route Start Last Admin Trade Name Freq PRN Reason Stop Dose Admin Furosemide 40 mg 06/15/21 19:49 06/15/21 20:03 Furosemide 40 Mg/4 Ml Vial IVPUSH 06/15/21 19:50 40 mg NOW ONE Administration Hydromorphone HCl 1 mg 06/15/21 18:58 06/15/21 19:23 Hydromorphone 1 Mg/Ml Syringe IVPUSH 06/15/21 18:59 1 mg ONETIME ONE Administration Sodium Chloride 1,000 mls @ 150 mls/hr 06/15/21 16:45 06/15/21 21:00 Normal Saline IV 999 mls/hr ASDIRECTED KENDRICK Infusion Metoclopramide HCl 7.5 mg 06/15/21 18:59 06/15/21 19:21 Metoclopramide 10 Mg/2 Ml Sdv IVPUSH 06/15/21 19:00 7.5 mg ONETIME ONE Administration - Radiology Interpretation Free Text/Narrative:: 71-year-old male presents to the ED in the company of his . He has multiple chronic medical problems and presents to the ED with persistent and gradually worsening abdominal pain centered around the umbilicus. Pain is constant with a very strong colicky component which makes him nauseated and lightheaded. Patient has a known umbilical hernia but has never had any incarceration or attempt at surgical repair. Patient is on Coumadin and Plavix chronically due to carotid artery disease with stent placement x2 in his left carotid artery back to back due to carotid artery aneurysm occurring after carotid artery endarterectomy. He also is in chronic atrial fibrillation with a primarily atrial paced rhythm from a pacemaker defibrillator which was recently changed f rom the left upper chest to the right upper chest. Patient had COVID-19 illness in September last year and was flown to [facility] where he stayed for over 2 weeks without needing ventilator assist. Patient spent the next month in local jail I believe until October 26 when he came home for [place]. Due to other problems he ended up back in the jail in March until June 03 of this year. - Re-Assessments/Exams Free Text/Narrative Re-Assessment/Exam: 06/15/21 17:30: Chest x-ray reveals marked cardiomegaly with the left ventricle abutting the left costal margin. Query whether there is fluid at the apex of the left heart. Of note his left hemidiaphragm is paralyzed post left-sided CVA. He has trace right-sided pleural effusion on exam with a pacemaker defibrillator right upper anterior chest. Previous wires from pacemaker defibrillator left upper anterior chest residual from removal of pacemaker in this area. He has marked right-sided pulmonary artery prominence suggesting right-sided heart failure, perhaps cor pulmonale. No signs of pneumonia. 06/15/21 18:01: CT of the abdomen reveals an incompletely imaged left-sided pleural effusion which appears to have a lobulated appearance. Components of loculation or empyema are not excluded on CT exam. There is a trace right-sided pleural effusion as reported on chest x-ray. Liver is homogeneous. There is evidence of cholecystectomy clips. The common bile duct is measuring dilated at 1.4 cm. This may be secondary to the patient's cholecystectomy status. Ro clark correlation with lab values suggested to rule out biliary tree obstruction. There is possible pneumobilia in the the distal common bile duct versus a duodenal diverticulum. Pancreas has a homogeneous pancreas. Spleen is normal. Adrenal glands normal adrenal gland. Kidneys and ureters show no hydronephrosis with significant cortical wasting of both kidneys and atrophy. Nonobstructive right renal calcifications. Cystic structure in the left kidney. Stomach and bowels show no evidence of bowel obstruction. Appendix is not clearly visualized and is surgically absent by history. Intraperitoneal space reveals a small amount of fluid in the pelvis. No free air. Vasculature reveals calcifications diffusely throughout the aorta. No aneurysm detected. There is any inferior vena cava filter identified within the superior pole tilted to the right. Query whether this is chronic or not. Lymph nodes no pathologic lymph node enlargement. Urinary bladder reveals diffuse wall promin ence. As noted this can be seen with infection or under distention. Patient also has a history of bladder cancer. He has not had urology consultation for a year delayed because of Covid. The internal contents of the urinary bladder measure greater than water density. This may be artifactual but should be correlated with any concern for blood products or infectious material. Prostate contains multiple calcifications and is mildly enlarged. Bones reveal postsurgical changes to the left femur. Partial fusion of the SI joints bilaterally. There is ossification along the anterior lateral aspect of the vertebral bodies throughout the lumbar and lower thoracic spine which can be seen with diffuse idiopathic skeletal hyperostosis. Soft tissues revealed bilateral fat-containing inguinal hernias. There is an umbilical hernia which contains fat. This is best appreciated on the sagittal images. This hernia does not contain bowel. There is no significant internal stranding or fluid. There is stranding of the surrounding fat which should be correlated with any concern for an infectious or inflammatory process in this region. There is rectus diastases. There is some density in the midline posterior subcutaneous soft tissue. This is usually secondary to edema but should be correlated with any concern for infection. 06/15/21 18:06 Labs reveal a normal white count at 9.35. Differential of the auto differential shows 71.3% neutrophils. Hemoglobin is 15.2 with hematocrit of 49.7. MCV mildly elevated at 94.8. Platelet count is normal and 172,000. PT is 33.4. INR is 3.19 --mildly supratherapeutic . PTT is 42.9. Urine is clear with no signs of infection. 06/15/21 19:03 Sodium is 144. Potassium is 4.4. Chloride is slightly elevated at 109. Bicarb is 26 with an anion gap of 13.4. BUN is elevated at 20 with a creatinine of 1.2 and a GFR greater than 60. Glucose is 95. Calcium slightly low at 8.4. Magnesium 2.1. Liver function is normal. C-reactive protein 0.6 BNP is 11,710. Total protein is 7.2 with an albumin fraction of 3.6. The micro on the urinalysis shows 5-10 hyaline casts. No red cells no white cells but moderate bacteria in the urine. 06/15/21 20:02 Dr. Randle--on-call surgeon, has seen the patient in consultation which I am very grateful for. Patient had finally allowed pain medication and was given Dilaudid 1 mg followed by Reglan 7.5 mg. We waited approximately 20 minutes and then with minimal pressure his umbilical hernia was reduced by Dr. Randle. I attended the patient proxy 10 minutes later and he had reoccurrence of the umbilical hernia which I was able to easily reduce with mild pressure with index finger. The hernia is approximately 1.2 cm in diameter. When we look back at old CT of the abdomen he has had this dating back to at least 2012. It is no larger than it was back in that time frame. Patient was advised that he can simply put pressure on his umbilicus and push with his finger if recurrence of pain recurs. He will be given Lasix 40 mg IV due to elevated BNP and I will adjust his home use of Lasix. 06/15/21 20:30: Initial attempts to get the patient up met with development of nausea and diffuse diaphoresis. It appears that his blood pressure likely dropped due to combination of pain medication and Lasix. Will attempt to set him up in 20 minutes time. 06/15/21 20:55: Once again attempt to get him up and standing met with development of nausea and diaphoresis. Blood sugar check revealed it to be 106. He will be given a small bolus of normal saline at 100 mils to improve his blood pressure. 06/15/21 21:30: Patient is feeling somewhat better after drinking some apple juice and did not get dizzy or lightheaded after getting him up for the third time. He tentatively will be discharged home at this time in the care of his . Departure - Departure Time of Disposition: 20:13 Disposition: Home, Self-Care 01 Condition: Fair Clinical Impression: Incarcerated umbilical hernia, Atrial fibrillation, chronic, Supratherapeutic INR Congestive heart failure Qualifiers: Heart failure type: diastolic Heart failure chronicity: acute on chronic Qualified Code(s): I50.33 - Acute on chronic diastolic (congestive) heart failure - Discharge Information *PRESCRIPTION DRUG MONITORING PROGRAM REVIEWED*: Not Applicable *COPY OF PRESCRIPTION DRUG MONITORING REPORT IN PATIENT IBRAHIMA: Not Applicable Prescriptions: Furosemide [Lasix] 40 mg PO ASDIRECTED #30 tab Instructions: Umbilical Hernia, Adult, Heart Failure, Self Care, [id number], Heart Failure Exacerbation Referrals: Logan Wan MD [Primary Care Provider] - Forms: ED Department Discharge Additional Instructions: Evaluation in the emergency room today in regards to persistent pain at the umbilicus or navel. This started yesterday around suppertime and has gradually worsened over the 24 hours prior to visitation in the ED today. Examination does reveal a small 1.2 cm umbilical hernia at the umbilicus from 10:00 to 12 o'clock position if your bellybutton was o'clock looking at it from your feet. From your head it would be from 3:00 to 5 o'clock position. Due to multiple medical problems and the fact that you are on 2 different blood thinners i.e. Plavix which is an antiplatelet inhibitor and Coumadin which is a blood thinner this made potential surgery unavailable to you. Besides at there are multiple other medical problems that prohibit or strongly would discourage any further surgery. CT scan confirmed that there was a small amount of fat within this umbilical hernia. Looking back at CT scans this hernia has been present in the same configuration ,shape and size to at least 2012. With the aid of some Dilaudid 1 mg and Reglan 7.5 mg the hernia was found to be easily reducible with mild pressure from a solitary fingertip. Both the surgeon and myself were easily able to reduce the hernia which you could do at home as well. The hughes is to start feeling around your bellybutton as soon as you develop any kind of abdominal discomfort and try and reduce it as quick as possible. The hernia will pop and you feel it pop into your abdomen and relieve the pain. Other problems identified were an exacerbation or worsening of your heart failure and it is not being controlled with Lasix or furosemide 20 mg every morning. You will need to increase the dosage to 40 mg in the morning and 20 mg between 2 and 3 PM in the afternoon for the next 5 days to reduce the amount of fluid buildup in your lungs. Third problem identified was that your Coumadin time or INR is elevated above normal at 3.2. Normal should be between 2.3 and 2.5 for your condition. I would suggest switching your Coumadin dosage around to 4 mg twice a week and 2 mg the other 5 days of the week. You are currently on 4 mg 5 days a week and 2 mg 2 days of the week. Therefore switching it would be the exact opposite. Coumadin time needs to be rechecked in a week. I was also suggest that you have follow-up with your doctor in the next week like or Friday next week. Course return to the emergency room if you develop further abdominal pain not relieved with ability to reduce the hernia. All other medication is to be continued as per prescribed. I have written a prescription for Lasix 40 mg tablets that can be picked up tomorrow. You did receive a dosage of Lasix in the emergency room tonight and you will not need any further dosage of Lasix today. Sepsis Event Note (ED) - Focused Exam Vital Signs: Vital Signs Temp Pulse Resp BP Pulse Ox 06/15/21 16:19 36.9 C 70 18 165/97 H 91 L - My Orders Last 24 Hours: My Active Orders 06/15/21 16:41 Chest 1V Frontal [CR] Stat 06/15/21 17:07 Abdomen Pelvis wo Cont [CT] Stat 06/15/21 19:53 Consult to Physician [CONS] Urgent - Assessment/Plan Last 24 Hours: My Active Orders 06/15/21 16:41 Chest 1V Frontal [CR] Stat 06/15/21 17:07 Abdomen Pelvis wo Cont [CT] Stat 06/15/21 19:53 Consult to Physician [CONS] Urgent
[2021-06-15] MEDS ORDERED: Sodium Chloride 0.9% 1,000 ML IV SCH (16:45)
[2021-06-15] MEDS ORDERED: HYDROmorphone 1 MG/ML Syringe IVPUSH ONE (18:58)
[2021-06-15] MEDS ORDERED: Metoclopramide 10 MG/2 ML SDV IVPUSH ONE (18:59)
[2021-06-15] MEDS ORDERED: Furosemide 40 MG/4 ML VIAL IVPUSH ONE (19:49)
--- NOTE | 2021-06-15 20:11 | PCM.CONS ---
H&P History of Present Illness - General Date of Service: 06/15/21 Source of Information: Patient History Limitations: Reports: No Limitations - History of Present Illness Initial Comments - Free Text/Narative: Patient started having localized umbilical pain yesterday morning. The pain become worse. His tried to touch the belly button and patient had exquisite pain at this site. He has significant history pacemaker, prior stroke with residual left hemiparesis, he is on Coumadin and Plavix. He was taken to the ED for evaluation. CT a/p was concerning for incarcerated umbilical hernia. Onset of Symptoms: Reports: Gradual Duration of Symptoms: Reports: Day(s): (1), Improving Location: Reports: Abdomen (umbilical) Quality: Reports: Sharp Severity: Moderate Improves with: Reports: Immobilization Worsens with: Reports: Movement Associated Symptoms: Reports: No Other Symptoms Abdomen Pain Score (Numeric/FACES): 2 - Related Data Allergies/Adverse Reactions: Allergies Allergy/AdvReac Type Severity Reaction Status Date / Time doxycycline Allergy Abdominal Verified 06/15/21 16:32 Pain Iodinated Contrast Media Allergy Hives Verified 06/15/21 16:23 ketorolac [From Toradol] Allergy Hypertensio Verified 06/15/21 16:23 n Home Medications: Home Meds Cholecalciferol (Vitamin D3) [Vitamin D3] 2,000 unit PO DAILY 09/12/20 [History] Clopidogrel [Plavix] 75 mg PO DAILY 09/12/20 [History] Furosemide [Lasix] 20 mg PO DAILY 09/12/20 [History] Potassium Chloride [Klor-Con M20] 20 meq PO DAILY 09/12/20 [History] Sertraline [Zoloft] 50 mg PO DAILY 09/12/20 [History] Ubidecarenone [Coq-10] 100 mg PO DAILY 09/12/20 [History] carvediloL [Carvedilol] 25 mg PO BID 09/12/20 [History] Acetaminophen [Tylenol] 650 mg PO ASDIRECTED PRN 06/15/21 [History] Lactobacillus Acidophilus [Acidophilus Lactobacillus] 1 gm MC DAILY 06/15/21 [History] Sennosides/Docusate Sodium [Senna Plus 8.6-50 mg Tablet] 2 tab PO DAILY PRN 06/15/21 [History] Warfarin Sodium [Jantoven] 2 mg PO ASDIRECTED 06/15/21 [History] Past Medical History Cardiovascular History: Reports: Afib (Chronic.), Heart Failure, Hypertension, Other (See Below) Other Cardiovascular History: carotid endartectomy/AICD. Left carotid stenting and endarterectomy. Respiratory History: Reports: COPD, Pneumonia, Recurrent, Pneumothorax Genitourinary History: Reports: Urinary Incontinence Musculoskeletal History: Reports: Arthritis, Fracture Neurological History: Reports: CVA Other Neuro History: rt sided with left hemiplegia Oncologic (Cancer) History: Reports: Bladder, Squamous Cell Carcinoma Other Dermatologic History: skin cancer. - Infectious Disease History Infectious Disease History: Reports: Chicken Pox, Measles, Mumps, Novel Coronavirus - Past Surgical History HEENT Surgical History: Reports: Tonsillectomy Cardiovascular Surgical History: Reports: Other (See Below) Other Cardiovascular Surgeries/Procedures: defibrillator GI Surgical History: Reports: Appendectomy Musculoskeletal Surgical History: Reports: Other (See Below) Other Musculoskeletal Surgeries/Procedures:: hip fx Dermatological Surgical History: Reports: Skin Biopsy Social & Family History - Tobacco Use Tobacco Use Status *Q: Former Tobacco User Used Tobacco, but Quit: Yes Month/Year Tobacco Last Used: 11/2007 - Caffeine Use Caffeine Use: Reports: Coffee - Recreational Drug Use Recreational Drug Use: No - Living Situation & Occupation Living situation: Reports: Occupation: Retired H&P Review of Systems - Review of Systems: Review Of Systems: See Below General: Reports: No Symptoms HEENT: Reports: No Symptoms Pulmonary: Reports: No Symptoms Cardiovascular: Reports: No Symptoms Gastrointestinal: Reports: Abdominal Pain (umbilical) Genitourinary: Reports: No Symptoms Musculoskeletal: Reports: No Symptoms Exam - Exam Exam: See Below - Vital Signs Vital Signs: Last Vital Signs Temp 98.4 F 06/15/21 16:19 Pulse 70 06/15/21 16:19 Resp 18 06/15/21 16:19 BP 165/97 H 06/15/21 16:19 Pulse Ox 91 L 06/15/21 16:19 Weight: 103.419 kg - Exam Quality Assessment: Supplemental Oxygen General: Alert, Oriented, Cooperative Lungs: Clear to Auscultation, Normal Respiratory Effort Cardiovascular: Regular Rate GI/Abdominal Exam: Soft, Non-Tender, No Organomegaly, No Distention, Hernia (umbilical is now easily reducible. No overlying skin changes) - Patient Data Lab Results Last 24 hrs: Laboratory Results - last 24 hr 06/15/21 06/15/21 06/15/21 Range/Units 17:19 17:19 17:19 WBC 9.35 H (4.23-9.07) K/mm3 RBC 5.24 (4.63-6.08) M/mm3 Hgb 15.2 (13.7-17.5) gm/dl Hct 49.7 (40.1-51.0) % MCV 94.8 H (79.0-92.2) fl MCH 29.0 (25.7-32.2) pg MCHC 30.6 L (32.2-35.5) g/dl RDW Std Deviation 51.0 H (35.1-43.9) fL Plt Count 172 (163-337) K/mm3 MPV 10.0 (9.4-12.3) fl Neut % (Auto) 71.3 H (34.0-67.9) % Lymph % (Auto) 16.8 L (21.8-53.1) % Lane % (Auto) 9.3 (5.3-12.2) % Eos % (Auto) 1.7 (0.8-7.0) Baso % (Auto) 0.3 (0.1-1.2) % Neut # (Auto) 6.66 H (1.78-5.38) K/mm3 Lymph # (Auto) 1.57 (1.32-3.57) K/mm3 Lane # (Auto) 0.87 H (0.30-0.82) K/mm3 Eos # (Auto) 0.16 (0.04-0.54) K/mm3 Baso # (Auto) 0.03 (0.01-0.08) K/mm3 PT 33.4 H (9.7-12.0) SECONDS INR 3.19 APTT 42.9 H (21.7-31.4) SECONDS Sodium 144 (136-145) mEq/L Potassium 4.4 (3.5-5.1) mEq/L Chloride 109 H (98-107) mEq/L Carbon Dioxide 26 (21-32) mEq/L Anion Gap 13.4 (5-15) BUN 20 H (7-18) mg/dL Creatinine 1.2 (0.7-1.3) mg/dL Est Cr Clr Drug Dosing 66.50 mL/min Estimated GFR (MDRD) 60 (>60) mL/min BUN/Creatinine Ratio 16.7 (14-18) Glucose 95 (70-99) mg/dL Calcium 8.4 L (8.5-10.1) mg/dL Magnesium 2.1 (1.8-2.4) mg/dL Total Bilirubin 0.9 (0.2-1.0) mg/dL AST 24 (15-37) U/L ALT 39 (16-63) U/L Alkaline Phosphatase 66 (46-116) U/L C-Reactive Protein 0.6 (<1.0) mg/dL NT-Pro-B Natriuret Pep (0-125) pg/mL Total Protein 7.2 (6.4-8.2) g/dl Albumin 3.6 (3.4-5.0) g/dl Globulin 3.6 gm/dL Albumin/Globulin Ratio 1.0 (1-2) Urine Color (Yellow) Urine Appearance (Clear) Urine pH (5.0-8.0) Ur Specific [place] (1.005-1.030) Urine Protein (Negative) Urine Glucose (UA) (Negative) Urine Ketones (Negative) Urine Occult Blood (Negative) Urine Nitrite (Negative) Urine Bilirubin (Negative) Urine Urobilinogen (0.2-1.0) Ur Leukocyte Esterase (Negative) U Hyaline Cast (Auto) (0-5) /lpf Urine RBC (0-5) /hpf Urine WBC (0-5) /hpf Ur Epithelial Cells (0-5) /hpf Urine Bacteria (FEW) /hpf Urine Mucus (FEW) /hpf 06/15/21 06/15/21 Range/Units 17:19 17:30 WBC (4.23-9.07) K/mm3 RBC (4.63-6.08) M/mm3 Hgb (13.7-17.5) gm/dl Hct (40.1-51.0) % MCV (79.0-92.2) fl MCH (25.7-32.2) pg MCHC (32.2-35.5) g/dl RDW Std Deviation (35.1-43.9) fL Plt Count (163-337) K/mm3 MPV (9.4-12.3) fl Neut % (Auto) (34.0-67.9) % Lymph % (Auto) (21.8-53.1) % Lane % (Auto) (5.3-12.2) % Eos % (Auto) (0.8-7.0) Baso % (Auto) (0.1-1.2) % Neut # (Auto) (1.78-5.38) K/mm3 Lymph # (Auto) (1.32-3.57) K/mm3 Lane # (Auto) (0.30-0.82) K/mm3 Eos # (Auto) (0.04-0.54) K/mm3 Baso # (Auto) (0.01-0.08) K/mm3 PT (9.7-12.0) SECONDS INR APTT (21.7-31.4) SECONDS Sodium (136-145) mEq/L Potassium (3.5-5.1) mEq/L Chloride (98-107) mEq/L Carbon Dioxide (21-32) mEq/L Anion Gap (5-15) BUN (7-18) mg/dL Creatinine (0.7-1.3) mg/dL Est Cr Clr Drug Dosing mL/min Estimated GFR (MDRD) (>60) mL/min BUN/Creatinine Ratio (14-18) Glucose (70-99) mg/dL Calcium (8.5-10.1) mg/dL Magnesium (1.8-2.4) mg/dL Total Bilirubin (0.2-1.0) mg/dL AST (15-37) U/L ALT (16-63) U/L Alkaline Phosphatase (46-116) U/L C-Reactive Protein (<1.0) mg/dL NT-Pro-B Natriuret Pep 37367 H (0-125) pg/mL Total Protein (6.4-8.2) g/dl Albumin (3.4-5.0) g/dl Globulin gm/dL Albumin/Globulin Ratio (1-2) Urine Color Yellow (Yellow) Urine Appearance Clear (Clear) Urine pH 6.0 (5.0-8.0) Ur Specific [place] 1.025 (1.005-1.030) Urine Protein Negative (Negative) Urine Glucose (UA) Negative (Negative) Urine Ketones Negative (Negative) Urine Occult Blood Negative (Negative) Urine Nitrite Negative (Negative) Urine Bilirubin Negative (Negative) Urine Urobilinogen 0.2 (0.2-1.0) Ur Leukocyte Esterase Negative (Negative) U Hyaline Cast (Auto) 5-10 H (0-5) /lpf Urine RBC 0-5 (0-5) /hpf Urine WBC 0-5 (0-5) /hpf Ur Epithelial Cells 0-5 (0-5) /hpf Urine Bacteria Moderate H (FEW) /hpf Urine Mucus Few (FEW) /hpf Result Diagrams: 06/15/21 17:19 06/15/21 17:19 Sepsis Event Note - Focused Exam Vital Signs: Vital Signs Temp Pulse Resp BP Pulse Ox 06/15/21 16:19 98.4 F 70 18 165/97 H 91 L Consult PN Assessment/Plan Procedures: Procedures ASSAY OF FERRITIN (09/12/20) ASSAY OF NATRIURETIC PEPTIDE (09/12/20) ASSAY OF TROPONIN QUANT (09/12/20) C-REACTIVE PROTEIN (09/12/20) COMPLETE CBC W/AUTO DIFF WBC (09/12/20) COMPREHEN METABOLIC PANEL (09/12/20) CT ABD & PELVIS W/O CONTRAST (02/16/15) ELECTROCARDIOGRAM TRACING (09/12/20) EMERGENCY DEPT VISIT (03/08/21) EMERGENCY DEPT VISIT (09/12/20) FIBRIN DEGRADATION QUANT (09/12/20) LACTATE (LD) (LDH) ENZYME (09/12/20) MEASURE BLOOD OXYGEN LEVEL (10/26/20) PROTHROMBIN TIME (09/12/20) ROUTINE VENIPUNCTURE (09/12/20) THER/PROPH/DIAG INJ IV PUSH (09/12/20) TX/PRO/DX INJ NEW DRUG ADDON (09/12/20) US EXAM SCROTUM (01/18/19) VASCULAR STUDY (01/18/19) X-RAY EXAM CHEST 1 VIEW (09/12/20) X-RAY EXAM KNEE 4 OR MORE (03/08/21) Problem List Initiated/Reviewed/Updated: No Plan: Patient presents with acute onset umbilical pain at the site of the hernia. CT was concerning for possible umbilical hernia incarceration. We examined CTa/p images from 2012, [address] all of which show the same umbilical hernia which appears to be fairly stable. The umbilical hernia was tender earlier but on my exam, the tenderness had resolved after the patient was given a small dose dilaudid and it was now easily reducible hence no longer incarcerated. In summary, the patient has chronic umbilical hernia that got aggravated and has now resolved completely. He is a poor surgical candidate due to his significant cardiovascular comorbidities. I would recommend watchful monitoring at home. If this episode recurs, the patient need to seek immediate medical attention as he did today. Patient and his verbalized understanding. I discussed my recommendations with Dr. Luna in the ER.
--- NOTE | 2021-06-16 08:37 | CT ---
CT abdomen and pelvis Technique: Multiple axial sections were obtained from above the dome of the diaphragm inferiorly through the pubic symphysis. Intravenous and oral contrast were not utilized. Reconstructed coronal and sagittal images were obtained. Comparison: Prior CT abdomen and pelvis study of 02/16/15. Findings: Minimal right-sided pleural effusion is seen. Small pleural effusion is seen in the left side which may be loculated. Very slight atelectasis is seen within both lung bases. Heart is enlarged. Artifact is seen from AICD. Liver contains no discrete focal abnormality. Spleen size is normal. Adrenal glands show no nodule. Pancreas shows no abnormality. Surgical clips are seen from prior cholecystectomy. Common bile duct is slightly enlarged most likely will representing change from previous cholecystectomy. Kidneys show a small cyst on the left side measuring 1.8 cm. Scattered calcifications are seen within both kidneys most likely representing vascular calcification which is stable from previous CT study. Abdominal aorta shows no aneurysm. Atherosclerotic calcification is seen within the abdominal aorta, branch vessels as well as within the iliac vessels. Inferior vena cava filter is slightly tilted which is stable from prior exam and therefore believed to be incidental. No retroperitoneal adenopathy is seen. Small fat-containing umbilical hernia is noted. This is stable from prior CT study. Very slight density is seen around this hernia which is stable. No pelvic mass or adenopathy is seen. Small fat-containing right inguinal hernia is noted which is stable from prior study. Previous surgery is seen within the left hip and proximal left femur. 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 Fusion is seen of both sacroiliac joints. Joint space narrowing is seen within both hips, worse on the left side. Impression: 1. Numerous findings as described above. 2. Small pleural effusions are noted which are an interval change from prior study. No other change is seen from prior CT study. 3. Nothing acute is definitely appreciated. Diagnostic code #2 I minimally disagree with preliminary report from [facility], finalized on 06/15/21, 6:54 PM CDT, code 2
--- NOTE | 2021-06-16 09:07 | CR ---
Chest: Portable view of the chest was obtained. Comparison: Prior chest x-ray of 11/18/11. Heart size may be slightly enlarged. AICD is present. Lungs show no definite acute parenchymal change. Bony structures show nothing acute. Surgical clips are seen within the base of the left neck. Impression: 1. Findings as noted above. 2. Nothing acute is definitely appreciated. Diagnostic code #2
== END 2021-06-15 21:34 | disposition home or self-care (01) ==
LOC: JD.ED 16:02
DX: K42.0 Umbilical hernia with obstruction, without gangrene (principal); I50.33 Acute on chronic diastolic (congestive) heart failure; I48.91 Unspecified atrial fibrillation; R79.1 Abnormal coagulation profile; J44.9 Chronic obstructive pulmonary disease, unspecified; Z86.73 Personal history of transient ischemic attack (TIA), and cerebral infarction without residual deficits; Z87.891 Personal history of nicotine dependence; Z79.899 Other long term (current) drug therapy; Z91.041 Radiographic dye allergy status; Z88.1 Allergy status to other antibiotic agents; Z88.6 Allergy status to analgesic agent; Z79.02 Long term (current) use of antithrombotics/antiplatelets; Z95.0 Presence of cardiac pacemaker
CPT/HCPCS: 36415; 71045; 74176; 80053; 81001; 82947; 83735; 83880; 85025; 85610; 85730; 86140; 93005; 96374; 96375; 99284; J1170; J1940; J2765; J7030; 93010

== ENCOUNTER 2021-06-29 10:04 | Inpatient (IN) | payer MEDICARE, BC ==
[2021-06-29] MEDS ORDERED: Furosemide 40 MG/4 ML VIAL IVPUSH ONE ×3 (10:30→16:30)
--- NOTE | 2021-06-29 10:30 | EDM.PDOC ---
ED HPI GENERAL MEDICAL PROBLEM - General Chief Complaint: Chest Pain Stated Complaint: [facility] Time Seen by Provider: 06/29/21 10:14 Source of Information: Reports: Patient, EMS, Family History Limitations: Reports: No Limitations - History of Present Illness INITIAL COMMENTS - FREE TEXT/NARRATIVE: 71-year-old male presents to the ED per [facility]. His chief co mplaint is heaviness throughout his chest and dyspnea on minimal exertion. His reports that he is been complaining of chest discomfort off and on for the last week. I had seen him through the ED 2 weeks ago today I June 15 due to a incarcerated small umbilical hernia. We were able to reduce this without need for surgery. It has not bothered him since we reduced it. He recognizes dyspne a on minimal exertion particularly getting dressed. When he was seen 2 weeks ago his BNP was markedly elevated at 6597. He did receive an extra dose of Lasix in the emergency room and his home dosage was increased to 40 in the morning and 20 in the p.m. for 5 days and then resume 40 mg in the morning. Prior to this he was on 20 mg of Lasix only in the morning. He has had recent cardiac defibrillator pacemaker changed from his left upper anterior chest to the right upper anterior chest and this morning is 100% paced rhythm at 70/min. He has a minimal cough that is nonproductive. Of note he did have COVID-19 illness and November last year and was flown to [facility] where he stayed for 2 to 3 weeks. He has had multiple admissions to nursing homes since getting out of [facility] and just got out of the shelter in early June of this year. Was felt that he was retaining more fluid likely due to a higher sodium diet at home since getting out of the shelter as while he was in the shelter he had no edema. He appreciates chronic dependent edema both lower extremities slightly worse on the left side as compared to the right. Denies any hemoptysis. He has chronic atrial fibrillation. He is on Coumadin which we did change on last visit 2 weeks ago due to an elevated INR of 3.19. He is currently on 4 mg 2 days a week and 2 mg the other days. I believe 4 mg doses administered on Friday and Wednesdays. He had his PT and INR checked day before yesterday and it was back up to normal at 2.2. Onset: Gradual Onset Date: 06/19/21 (Deterioration with lung function over the last 2 weeks.) Duration: Day(s):, Getting Worse Location: Reports: Chest (With associated dyspnea.) Quality: Reports: Pressure, Other (Heaviness making it difficult to breathe.) Severity: Moderate Improves with: Reports: Rest, Other (Improved sitting up.) Worsens with: Reports: Other (Worse with activity or movement minimal activity such as getting dressed makes him dyspneic. Worsens with lying flat as well.) Context: Reports: Other (Multiple medical problems particularly poor cardiac output and COPD .). Denies: Activity, Exercise, Lifting, Sick Contact, Trauma Associated Symptoms: Reports: Chest Pain (Chest heaviness behind the), Cough ( sternum.), Loss of Appetite, Malaise, Shortness of Breath, Weakness, Other (Dy spnea on minimal exertion). Denies: Confusion, cough w sputum ( Nonproductive cough), Diaphoresis, Fever/Chills, Headaches, Nausea/Vomiting, Rash, Seizure, Syncope Treatments HEAD [employer] BUSINESS DEVELOPMENT: Reports: Other (see below) (Only prescribed medications.) - Related Data Allergies Allergy/AdvReac Type Severity Reaction Status Date / Time doxycycline Allergy Abdominal Verified 06/15/21 16:32 Pain Iodinated Contrast Media Allergy Hives Verified 06/15/21 16:23 ketorolac [From Toradol] Allergy Hypertensio Verified 06/15/21 16:23 n Home Meds: Home Meds Cholecalciferol (Vitamin D3) [Vitamin D3] 2,000 unit PO DAILY 09/12/20 [History] Clopidogrel [Plavix] 75 mg PO DAILY 09/12/20 [History] Furosemide [Lasix] 20 mg PO DAILY 09/12/20 [History] Potassium Chloride [Klor-Con M20] 20 meq PO DAILY 09/12/20 [History] Sertraline [Zoloft] 50 mg PO DAILY 09/12/20 [History] Ubidecarenone [Coq-10] 100 mg PO DAILY 09/12/20 [History] carvediloL [Carvedilol] 25 mg PO BID 09/12/20 [History] Acetaminophen [Tylenol] 500 mg PO ASDIRECTED PRN 06/15/21 [History] Lactobacillus Acidophilus [Acidophilus Lactobacillus] 1 gm MC DAILY 06/15/21 [History] Sennosides/Docusate Sodium [Senna Plus 8.6-50 mg Tablet] 2 tab PO DAILY PRN 06/15/21 [History] Warfarin Sodium [Jantoven] 2 mg PO ASDIRECTED 06/15/21 [History] Past Medical History Cardiovascular History: Reports: Afib, Automatic Implantable Cardioverter Defibrillators, Heart Failure, Hypertension, Other (See Below) Other Cardiovascular History: carotid endartectomy/AICD. Left carotid stenting and endarterectomy. 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 - Infectious Disease History Infectious Disease History: Reports: Chicken Pox, Measles, Mumps, Novel Coronavirus - Past Surgical History HEENT Surgical History: Reports: Tonsillectomy Cardiovascular Surgical History: Reports: Other (See Below) Other Cardiovascular Surgeries/Procedures: defibrillator GI Surgical History: Reports: Appendectomy Musculoskeletal Surgical History: Reports: Other (See Below) Other Musculoskeletal Surgeries/Procedures:: hip fx Dermatological Surgical History: Reports: Skin Biopsy Social & Family History - Tobacco Use Tobacco Use Status *Q: Never Tobacco User - Caffeine Use Caffeine Use: Reports: None - Recreational Drug Use Recreational Drug Use: No - Living Situation & Occupation Living situation: Reports: Occupation: Disabled (Stable post CVA 13 years ago) ED ROS GENERAL - Review of Systems Review Of Systems: See Below Constitutional: Reports: Malaise, Weakness, Fatigue, Weight Gain (Believes he may have gained a pound or 2.). Denies: Fever, Chills HEENT: Reports: Dental Pain (Recent problems with dental it pain and infection and had 1 tooth removed. Currently has an infected tooth left upper maxilla), Glasses, Hearing Loss (Mildly hard of hearing) Respiratory: Reports: Shortness of Breath, Cough. Denies: Wheezing, Pleuritic Chest Pain, Sputum, Hemoptysis (Nonproductive) Cardiovascular: Reports: Blood Pressure Problem, Dyspnea on Exertion ( chronic both lower extremities left worse than right getting worse the last week or so.), Edema (Occasional lightheadedness), Lightheadedness, Orthopnea. Denies: Chest Pain, Claudication Endocrine: Reports: Fatigue GI/Abdominal: Reports: Decreased Appetite, Other (Known umbilical hernia.). Denies: Constipation, Diarrhea : Reports: Frequency, Other (Nocturia x2) Musculoskeletal: Reports: Neck Pain, Back Pain, Joint Pain (Knee sepsis shoulders at times) Skin: Reports: No Symptoms Neurological: Reports: No Symptoms Psychiatric: Reports: No Symptoms Hematologic/Lymphatic: Reports: No Symptoms Immunologic: Reports: No Symptoms ED EXAM, GENERAL - Physical Exam Exam: See Below Exam Limited By: No Limitations General Appearance: Alert, WD/WN, Mild Distress, Other (Patient is working hard to breathe a tachypneic. He is afebrile with temperature 36.2. Heart rate is 70 and appears to be 100% paced. Respiratory is 20 with O2 sats of 95% room air. BP is 127/67.) Eye Exam: Bilateral Eye: Normal Inspection (Mild blepharal pallor. No scleral icterus.), PERRL Throat/Mouth: Normal Inspection, Normal Lips, Normal Oropharynx, Other (Patient has a broken off tooth left upper mandible I believe is the first molar or second bicuspid that is broken off even with the gingiva margin with swelling and I believe some minimal purulent debris around the tooth.) Head: Atraumatic, Normocephalic Neck: Normal Inspection, Supple, Non-Tender, Full Range of Motion, Other (Previous left-sided carotid endarterectomy with known 2 stents within this artery). No: Carotid Bruit, Lymphadenopathy (L), Lymphadenopathy (R) Respiratory/Chest: Lungs Clear, Normal Breath Sounds, Respiratory Distress (Tachypnea at rest and is working hard to breathe.), Decreased Breath Sounds (Vessels are minimally to deep crease to the lower) Cardiovascular: Regular Rate, Rhythm (Monitor reveals heart rate of 70/min which appears to be 100% paced rhythm), No Gallop, No JVD, No Murmur, No Rub. No: No Edema Peripheral Pulses: 1+: Posterior Tibial (L), Posterior Tibial (R), Dorsalis Pedis (L), Dorsalis Pedis (R), 2+: Carotid (L), Carotid (R), Radial (L), Radial (R) GI/Abdominal: Normal Bowel Sounds, Soft, Non-Tender, No Organomegaly, No Mass, Pelvis Stable, Distended (Abdomen is mildly distended and mildly tympany to percussion combined with some degree of aerophagia.), Other (He has an umbilical hernia that is easily reducible at the 10 o'clock position if looking at him from his feet) Extremities: Pedal Edema (3+ pitting edema left lower extremity 2+ pitting edema right lower extremity.), Other (Evidence of osteoarthritic changes both knees.) Neurological: Alert, Oriented, CN II-XII Intact, Normal Cognition Psychiatric: Normal Affect, Normal Mood Skin Exam: Warm, Dry, Intact, No Rash, Pallor (Mild pallor) #1 Interpretation EKG Date: 06/29/21 Time: 10:44 Rhythm: Other (Atrial paced rhythm at 70 bpm) Rate (Beats/Min): 70 (Underlying rhythm appears to be atrial fibrillation) [place]: RAD-Right [place] Deviation (221 degrees) P-Wave: Variable QRS: Other (Small Q-wave V1 with a prominent R wave concerning for possible posterior wall CT. There are Q waves also in leads II, III and aVF compared with old inferior wall myocardial infarction.) ST-T: Other (Pronounced T wave inversion from V2 to V6 also present in leads II, III and aVF. T wave flattening in lead I. These T waves were present on ECG done June 15) QT: Prolonged (Moderately prolonged) Course - Vital Signs Last Recorded V/S: Last Vital Signs Temp 36.2 C 06/29/21 10:08 Pulse 70 06/29/21 10:08 Resp 20 06/29/21 10:08 BP 127/67 06/29/21 10:08 Pulse Ox 95 06/29/21 10:08 - Orders/Labs/Meds Orders: Active Orders 24 hr Category Date Time Status Peripheral IV Care [RC] . DIRECTED Care 06/29/21 10:30 Active URINALYSIS W/MICROSCOPIC [UA W/MICROSCOPIC] [URIN] Stat Lab 06/29/21 10:25 Ordered Sodium Chloride 0.9% [Saline Flush] Med 06/29/21 10:30 Active 10 ml FLUSH ASDIRECTED PRN Peripheral IV Insertion Adult [OM.PC] Stat Oth 06/29/21 10:30 Ordered Medication Orders Sodium Chloride (Sodium Chloride 0.9% 10 Ml Syringe) 10 ml FLUSH ASDIRECTED PRN PRN Reason: Keep Vein Open Last Admin: 06/29/21 11:32 Dose: 10 ml Documented by: DWAIN Labs: Laboratory Tests 06/29/21 06/29/21 06/29/21 Range/Units 11:19 11:19 11:19 WBC 7.84 (4.23-9.07) K/mm3 RBC 5.20 (4.63-6.08) M/mm3 Hgb 15.3 (13.7-17.5) gm/dl Hct 49.4 (40.1-51.0) % MCV 95.0 H (79.0-92.2) fl MCH 29.4 (25.7-32.2) pg MCHC 31.0 L (32.2-35.5) g/dl RDW Std Deviation 51.8 H (35.1-43.9) fL Plt Count 113 L (163-337) K/mm3 MPV 10.5 (9.4-12.3) fl Neut % (Auto) 68.8 H (34.0-67.9) % Lymph % (Auto) 13.4 L (21.8-53.1) % [place] % (Auto) 14.4 H (5.3-12.2) % Eos % (Auto) 2.7 (0.8-7.0) Baso % (Auto) 0.4 (0.1-1.2) % Neut # (Auto) 5.40 H (1.78-5.38) K/mm3 Lymph # (Auto) 1.05 L (1.32-3.57) K/mm3 [place] # (Auto) 1.13 H (0.30-0.82) K/mm3 Eos # (Auto) 0.21 (0.04-0.54) K/mm3 Baso # (Auto) 0.03 (0.01-0.08) K/mm3 PT (9.7-12.0) SECONDS INR Sodium (136-145) mEq/L Potassium (3.5-5.1) mEq/L Chloride (98-107) mEq/L Carbon Dioxide (21-32) mEq/L Anion Gap (5-15) BUN (7-18) mg/dL Creatinine (0.7-1.3) mg/dL Est Cr Clr Drug Dosing mL/min Estimated GFR (MDRD) (>60) mL/min BUN/Creatinine Ratio (14-18) Glucose (70-99) mg/dL Calcium (8.5-10.1) mg/dL Magnesium 2.0 (1.8-2.4) mg/dL Total Bilirubin (0.2-1.0) mg/dL AST (15-37) U/L ALT (16-63) U/L Alkaline Phosphatase (46-116) U/L CK-MB (CK-2) 2.4 (0-3.6) ng/ml Troponin I 0.092 H* (0.00-0.056) ng/mL C-Reactive Protein 3.9 H* (<1.0) mg/dL NT-Pro-B Natriuret Pep 71628 H (0-125) pg/mL Total Protein (6.4-8.2) g/dl Albumin (3.4-5.0) g/dl Globulin gm/dL Albumin/Globulin Ratio (1-2) SARS-CoV-2 RNA (BEBETO) (NEGATIVE) 06/29/21 06/29/21 06/29/21 Range/Units 11:19 11:19 12:30 WBC (4.23-9.07) K/mm3 RBC (4.63-6.08) M/mm3 Hgb (13.7-17.5) gm/dl Hct (40.1-51.0) % MCV (79.0-92.2) fl MCH (25.7-32.2) pg MCHC (32.2-35.5) g/dl RDW Std Deviation (35.1-43.9) fL Plt Count (163-337) K/mm3 MPV (9.4-12.3) fl Neut % (Auto) (34.0-67.9) % Lymph % (Auto) (21.8-53.1) % [place] % (Auto) (5.3-12.2) % Eos % (Auto) (0.8-7.0) Baso % (Auto) (0.1-1.2) % Neut # (Auto) (1.78-5.38) K/mm3 Lymph # (Auto) (1.32-3.57) K/mm3 [place] # (Auto) (0.30-0.82) K/mm3 Eos # (Auto) (0.04-0.54) K/mm3 Baso # (Auto) (0.01-0.08) K/mm3 PT 20.2 H D (9.7-12.0) SECONDS INR 1.91 Sodium 143 (136-145) mEq/L Potassium 4.7 (3.5-5.1) mEq/L Chloride 107 (98-107) mEq/L Carbon Dioxide 26 (21-32) mEq/L Anion Gap 14.7 (5-15) BUN 28 H (7-18) mg/dL Creatinine 1.5 H (0.7-1.3) mg/dL Est Cr Clr Drug Dosing 48.86 mL/min Estimated GFR (MDRD) 46 (>60) mL/min BUN/Creatinine Ratio 18.7 H (14-18) Glucose 106 H (70-99) mg/dL Calcium 8.8 (8.5-10.1) mg/dL Magnesium (1.8-2.4) mg/dL Total Bilirubin 1.0 (0.2-1.0) mg/dL AST 26 (15-37) U/L ALT 36 (16-63) U/L Alkaline Phosphatase 66 (46-116) U/L CK-MB (CK-2) (0-3.6) ng/ml Troponin I (0.00-0.056) ng/mL C-Reactive Protein (<1.0) mg/dL NT-Pro-B Natriuret Pep (0-125) pg/mL Total Protein 6.9 (6.4-8.2) g/dl Albumin 3.4 (3.4-5.0) g/dl Globulin 3.5 gm/dL Albumin/Globulin Ratio 1.0 (1-2) SARS-CoV-2 RNA (BEBETO) Negative (NEGATIVE) Meds: Medications Generic Name Dose Route Start Last Admin Trade Name Freq PRN Reason Stop Dose Admin Sodium Chloride 10 ml 06/29/21 10:30 06/29/21 11:32 Sodium Chloride 0.9% 10 Ml Syringe FLUSH 10 ml ASDIRECTED PRN Administration Keep Vein Open Discontinued Medications Generic Name Dose Route Start Last Admin Trade Name Freq PRN Reason Stop Dose Admin Furosemide 40 mg 06/29/21 10:30 06/29/21 11:32 Furosemide 40 Mg/4 Ml Vial IVPUSH 06/29/21 10:31 40 mg NOW ONE Administration - Radiology Interpretation Free Text/Narrative:: 71-year-old male presents to the ED per [facility] due to central chest discomfort which he describes as a heaviness. Associate with dyspnea on minimal exertion which has been gradually getting worse for the last week to 10 days. When I had seen him through the ED 2 weeks from today June 15 his BNP was 6595. We had increased his Lasix to 40 mg in the morning from 20 mg in the morning and 20 mg in the p.m. for 5 days. He is supposed to be on Lasix 40 mg every morning. Clinically the patient is presenting with worsening congestive failure causing dyspnea and central chest heaviness. O2 sats are 95%. Heart rate is controlled with atrial paced complexes at 70 bpm. Underlying rhythm is atrial fibrillation which he has chronically. He had his pro time checked 2 days ago and an INR was now therapeutic at 2.2. 2 weeks ago was supratherapeutic and we had changed his Coumadin dosage around. Is currently on 4 mg 2 days a week I believe Sundays and Wednesdays and the other days he takes 2 mg daily. Plan saline lock. Lasix 40 mg IV. Chest x-ray ECG and routine labs to be done. This will include a BNP. Patient tried to get into his primary care provider but was unable to do so over the last 2 weeks. - Re-Assessments/Exams Free Text/Narrative Re-Assessment/Exam: 06/29/21 11:44 portable chest x-ray reveals heart to be moderately enlarged. Lungs are clear with no acute parenchymal changes. AICD is present right upper anterior chest. Bony structures are osteopenic. Surgical clips are seen within the left neck. Surgical clips are also noted from prior cholecystectomy. I feel there is a mild diffuse congestive vascular pattern particular noted in the right lower lung field. The apex of the heart abuts the left costal margin. 06/29/21 11:52 Hematology is back reveals a normal white count at 7.84. The differential shows 68.8% neutrophils on the auto differential. Hemoglobin is 15.3 with hematocrit of 49.4. Platelet count is low at 113,000. PT is 20.2 with an INR of 1.91 today. It was apparently 2.2 in the clinic 2 days ago 06/29/21 12:20 Magnesium is 2.0 with a CK-MB fraction of 2.4. Troponin I is 0.092 C-reactive protein 3.9 BNP 13,499. Elevated troponin appears to be secondary to congestive failure. I have discussed the findings with the patient and his and his son whom is in the room. The is indicating at this point time that she is finding it too hard to look after him to get him up to the bathroom dressed etc. She thinks he needs to go back into the shelter for a period of time again. Unfortunately the CMP did not get ordered. I will also order a COVID-19 screen for him. He has had the virus and the vaccine. Tentatively a bed is opening up in the intensive care unit as an overflow bed and hopefully we can get the patient admitted to the hospital. 06/29/21 12:42 Patient is a has voided 3 times since Lasix intravenous dose was given. Patient has a strong sense of urgency and is too weak to get up to get to the bathroom in time. Family is requesting fitting for a depends. 06/29/21 12:48 A bed has become available in the intensive care unit as an overflow bed. I did speak with Dr. Guilherme Phillips on-call hospitalist and he will accept the patient to the intensive care unit with diagnosis of exacerbation of congestive heart failure. Is unclear whether or not he may have had a myocardial infarction to cause cardiac decompensation in the last month. He seems to have gotten much worse since discharge from shelter June 01 and has been at home for the last 3-1/2 weeks. seems to be very conscientious of sodium intake in his diet. I did increase his Lasix from 20 to 40 mg daily in the morning 2 weeks ago and in spite of this his condition is worsened. 06/29/21 13:39 Sodium 143 with a potassium of 4.7. Chloride 107 with a bicarb of 26. Anion gap is 14.7. BUN is 28 with a creatinine of 1.5 and a GFR of 46. Previous GFR 2 weeks ago was 60. Glucose is 106. Calcium is 8.8. Magnesium is normal at 2.0. Liver function is normal. CK-MB fraction is 2.4. Troponin I is elevated at 0.092 due to elevated BNP. C-reactive protein is 3.9 and I do not have a reason for this. Urinalysis is pending. BNP is markedly elevated at 13,499. Total protein 6.9 with an albumin fraction of 3.4. COVID-19 screen is negative. The reason for cardiac decompensation and worsening heart failure is unclear at this time. CODE STATUS is listed as DNR/DNI. Departure - Departure Time of Disposition: 13:36 Disposition: Admitted As Inpatient 65 Reason for Transfer *Q: Other Condition: Poor Clinical Impression: Chronic atrial fibrillation, Old cerebrovascular accident (CVA) without late effect, Subtherapeutic international normalized ratio (INR) Acute exacerbation of CHF (congestive heart failure) Qualifiers: Heart failure type: diastolic Qualified Code(s): I50.33 - Acute on chronic diastolic (congestive) heart failure Sepsis Event Note (ED) - Focused Exam Vital Signs: Vital Signs Temp Pulse Resp BP Pulse Ox 06/29/21 10:08 36.2 C 70 20 127/67 95 - My Orders Last 24 Hours: My Active Orders 06/29/21 10:25 URINALYSIS W/MICROSCOPIC [UA W/MICROSCOPIC] [URIN] Stat 06/29/21 10:30 Peripheral IV Care [RC] . DIRECTED Sodium Chloride 0.9% [Saline Flush] 10 ml FLUSH ASDIRECTED PRN Peripheral IV Insertion Adult [OM.PC] Stat - Assessment/Plan Last 24 Hours: My Active Orders 06/29/21 10:25 URINALYSIS W/MICROSCOPIC [UA W/MICROSCOPIC] [URIN] Stat 06/29/21 10:30 Peripheral IV Care [RC] . DIRECTED Sodium Chloride 0.9% [Saline Flush] 10 ml FLUSH ASDIRECTED PRN Peripheral IV Insertion Adult [OM.PC] Stat
--- NOTE | 2021-06-29 11:04 | CR ---
Chest: Frontal view of the chest was obtained. Comparison: Prior chest x-ray of 06/15/21. Heart is enlarged. Lungs are clear with no acute parenchymal change. AICD is present. Bony structures are osteopenic. Surgical clips are seen within the left neck. Surgical clips are also noted from prior cholecystectomy. Impression: 1. Cardiomegaly with AICD. 2. Other findings believed to be incidental as noted above. Nothing acute is seen. Diagnostic code #2
[2021-06-29] MEDS: Sodium Chloride 0.9% 10 ML Syringe FLUSH PRN ×2 (11:32→20:29)
--- NOTE | 2021-06-29 12:55 | PCM.HP.2 ---
<Bobby Carreon - Last Filed: 06/29/21 15:04> H&P History of Present Illness - General Date of Service: 06/29/21 Admit Problem/Dx: Admission Diagnosis/Problem Admission Diagnosis/Problem Congestive heart failure Source of Information: Patient, Old Records, Provider, RN, RN Notes Reviewed History Limitations: Reports: No Limitations - History of Present Illness Initial Comments - Free Text/Narative: This is a 71-year-old male who presents to ED on 06/29/2021 via [facility] from home with chest heaviness and dyspnea on minimal exertion that have been ongoing for about a week. He was last seen in the ED on June 15 due to incarcerated small hernia which was reduced and he has had no problems since. During that visit he was given extra dose of Lasix and his home dose was increased with an extra 20 mg in the evening for 5 days. He was also increased to 40 mg in the morning. He had prior been on 20 mg of Lasix in the morning. He recently had his implanted cardiac defibrillator/pacemaker switched from his left upper chest to his right upper chest due to an infection. He reports a minimal nonproductive cough. He was in [facility] in September due to Covid symptoms and was hospitalized for 3 weeks. He reports he has been in and out of the senior living since then. He has chronic atrial fibrillation and dependent edema which is worse on the left side. He is on Coumadin and his dosing was changed 2 weeks ago. INR was checked a few days ago and it was normal at 2.2. In the ED twelve-lead EKG was obtained showing an atrial paced rhythm at 70 bpm with right axis deviation. There are small Q waves in V1 and a prominent R wave is noted in V1 as well. Q waves in inferior leads. T wave inversion from V2 through V6 and inferior leads. T wave flattening is noted in lead I. QT segment is moderately prolonged. No real change from EKG on June 15. Temp is 36.2 Celsius. Pulse 70. Respirations 20. Blood pressure 127/67. Pulse ox 95%. Labs are obtained with a WBC of 7.84. Hemoglobin 15.3. Hematocrit 49.4. He is macrocytic. Platelets 113,000. Neutrophils are elevated at 68.8. Magnesium is 2.0. CK-MB is 2.4. Troponin 0 0.092. CRP is 3.9. proBNP is 13,000 499. INR is 1.91. Sodium 143. Potassium 4.7. Chloride 107. Carbon dioxide 26. Anion gap 14.7. BUN is 28. Creatinine 1.5. GFR is 46. Glucose 106. Calcium 8.8. Total bilirubin 1.0. AST is 26, ALT 36, alkaline phosphatase 66. Protein is 6.9. Albumin is 3.4. SARS-CoV-2 RNA is negative. UA is negative. Chest x-ray is obtained showing cardiomegaly with an AICD and other incidental findings. He is given 40 mg IV push Lasix and is subsequent admitted to the ICU as a medical floor overflow for CHF exacerbation. He carries a history of A. fib, AICD, heart failure, hypertension, carotid and endarterectomy, left carotid artery stenting, COPD, recurrent pneumonia, pneumothorax, urinary incontinence, arthritis, CVA with residual left hemiplegia, depression, bladder cancer. He is a DNR/DNI. His primary care provider is Dr. Logan Wan. - Related Data Allergies/Adverse Reactions: Allergies Allergy/AdvReac Type Severity Reaction Status Date / Time Iodinated Contrast Media Allergy Hives Verified 06/15/21 16:23 doxycycline AdvReac Abdominal Verified 06/29/21 14:06 Pain ketorolac [From Toradol] AdvReac Hypertensio Verified 06/29/21 14:06 n Home Medications: Home Meds Cholecalciferol (Vitamin D3) [Vitamin D3] 2,000 unit PO DAILY 09/12/20 [History] Clopidogrel [Plavix] 75 mg PO DAILY 09/12/20 [History] Furosemide [Lasix] 20 mg PO DAILY 09/12/20 [History] Potassium Chloride [Klor-Con M20] 20 meq PO DAILY 09/12/20 [History] Sertraline [Zoloft] 50 mg PO DAILY 09/12/20 [History] Ubidecarenone [Coq-10] 100 mg PO DAILY 09/12/20 [History] carvediloL [Carvedilol] 25 mg PO BID 09/12/20 [History] Acetaminophen [Tylenol] 500 mg PO ASDIRECTED PRN 06/15/21 [History] Lactobacillus Acidophilus [Acidophilus Lactobacillus] 1 gm MC DAILY 06/15/21 [History] Sennosides/Docusate Sodium [Senna Plus 8.6-50 mg Tablet] 2 tab PO DAILY PRN 06/15/21 [History] Warfarin Sodium [Jantoven] 2 mg PO ASDIRECTED 06/15/21 [History] Past Medical History Cardiovascular History: Reports: Afib, Automatic Implantable Cardioverter Defibrillators, Heart Failure, Hypertension, Other (See Below) Other Cardiovascular History: carotid endartectomy/AICD. Left carotid stenting and endarterectomy. 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 - Infectious Disease History Infectious Disease History: Reports: Chicken Pox, Measles, Mumps, Novel Coronavirus - Past Surgical History HEENT Surgical History: Reports: Tonsillectomy Cardiovascular Surgical History: Reports: Other (See Below) Other Cardiovascular Surgeries/Procedures: defibrillator GI Surgical History: Reports: Appendectomy Musculoskeletal Surgical History: Reports: Other (See Below) Other Musculoskeletal Surgeries/Procedures:: hip fx Dermatological Surgical History: Reports: Skin Biopsy Social & Family History - Tobacco Use Tobacco Use Status *Q: Never Tobacco User - Caffeine Use Caffeine Use: Reports: None - Recreational Drug Use Recreational Drug Use: No - Living Situation & Occupation Living situation: Reports: Occupation: Disabled (Stable post CVA 13 years ago) H&P Review of Systems - Review of Systems: Review Of Systems: See Below General: Reports: Malaise, Weakness, Fatigue, Weight Gain. Denies: Fever, Chills HEENT: Reports: No Symptoms. Denies: Headaches, Sore Throat Pulmonary: Reports: Shortness of Breath, Cough. Denies: Wheezing, Pleuritic C hest Pain, Sputum Cardiovascular: Reports: Dyspnea on Exertion, Orthopnea, Edema, Blood Pressure Problem. Denies: Chest Pain, Palpitations, Lightheadedness, Syncope Gastrointestinal: Reports: No Symptoms. Denies: Abdominal Pain, Constipation, Diarrhea, Nausea, Vomiting Genitourinary: Reports: Frequency, Incontinence. Denies: Pain Musculoskeletal: Reports: Neck Pain, Shoulder Pain, Back Pain, Joint Pain (Knees and hips) Skin: Reports: No Symptoms Psychiatric: Reports: No Symptoms Neurological: Reports: Pre-Existing Deficit (Left-sided hemiparesis secondary to CVA), Trouble Speaking (Baseline slurred speech), Difficulty Walking, Weakness, Gait Disturbance. Denies: Confusion, Dizziness, Headache, Numbness, Syncope, Tingling, Change in Speech Hematologic/Lymphatic: Reports: No Symptoms Immunologic: Reports: No Symptoms Exam - Exam Exam: See Below - Vital Signs Vital Signs: Last Vital Signs Temp 97.2 F 06/29/21 10:08 Pulse 70 06/29/21 10:08 Resp 20 06/29/21 10:08 BP 127/67 06/29/21 10:08 Pulse Ox 95 06/29/21 10:08 Weight: 99.79 kg - Exam Quality Assessment: Supplemental Oxygen (1L), DVT Prophylaxis (Warfarin ). No: Urinary Catheter General: Alert, Oriented, Cooperative. No: Mild Distress HEENT: Conjunctiva Clear, EACs Clear, Mucosa Moist & [place], Posterior Pharynx Clear, Other (Apparent infected tooth in left upper mandible) Neck: Supple, Trachea Midline Lungs: Clear to Auscultation, Normal Respiratory Effort, Decreased Breath Sounds. No: Crackles, Rhonchi, Wheezing Cardiovascular: Regular Rate, Irregular Rhythm GI/Abdominal Exam: Normal Bowel Sounds, Soft, Non-Tender, No Distention (Male) Exam: Deferred Rectal (Males) Exam: Deferred Back Exam: Normal Inspection, Decreased Range of Motion Extremities: Normal Inspection, Non-Tender, Normal Capillary Refill, Pedal Edema (3+ pitting edema on left lower extremity and 2+ pitting edema on right lower extremity), Limited Range of Motion (Left-sided hemiparesis) Peripheral Pulses: 1+: Dorsalis Pedis (L), Dorsalis Pedis (R), 2+: Radial (L), Radial (R) Skin: Warm, Dry, Intact Neurological: Cranial Nerves Intact (Grossly but limited) Neuro Extensive - Mental Status: Alert, Oriented x3, Normal Mood/Affect - Patient Data Lab Results Last 24 hrs: Laboratory Results - last 24 hr 06/29/21 06/29/21 06/29/21 Range/Units 11:19 11:19 11:19 WBC 7.84 (4.23-9.07) K/mm3 RBC 5.20 (4.63-6.08) M/mm3 Hgb 15.3 (13.7-17.5) gm/dl Hct 49.4 (40.1-51.0) % MCV 95.0 H (79.0-92.2) fl MCH 29.4 (25.7-32.2) pg MCHC 31.0 L (32.2-35.5) g/dl RDW Std Deviation 51.8 H (35.1-43.9) fL Plt Count 113 L (163-337) K/mm3 MPV 10.5 (9.4-12.3) fl Neut % (Auto) 68.8 H (34.0-67.9) % Lymph % (Auto) 13.4 L (21.8-53.1) % [place] % (Auto) 14.4 H (5.3-12.2) % Eos % (Auto) 2.7 (0.8-7.0) Baso % (Auto) 0.4 (0.1-1.2) % Neut # (Auto) 5.40 H (1.78-5.38) K/mm3 Lymph # (Auto) 1.05 L (1.32-3.57) K/mm3 [place] # (Auto) 1.13 H (0.30-0.82) K/mm3 Eos # (Auto) 0.21 (0.04-0.54) K/mm3 Baso # (Auto) 0.03 (0.01-0.08) K/mm3 PT (9.7-12.0) SECONDS INR Sodium (136-145) mEq/L Potassium (3.5-5.1) mEq/L Chloride (98-107) mEq/L Carbon Dioxide (21-32) mEq/L Anion Gap (5-15) BUN (7-18) mg/dL Creatinine (0.7-1.3) mg/dL Est Cr Clr Drug Dosing mL/min Estimated GFR (MDRD) (>60) mL/min BUN/Creatinine Ratio (14-18) Glucose (70-99) mg/dL Calcium (8.5-10.1) mg/dL Magnesium 2.0 (1.8-2.4) mg/dL Total Bilirubin (0.2-1.0) mg/dL AST (15-37) U/L ALT (16-63) U/L Alkaline Phosphatase (46-116) U/L CK-MB (CK-2) 2.4 (0-3.6) ng/ml Troponin I 0.092 H* (0.00-0.056) ng/mL C-Reactive Protein 3.9 H* (<1.0) mg/dL NT-Pro-B Natriuret Pep 14114 H (0-125) pg/mL Total Protein (6.4-8.2) g/dl Albumin (3.4-5.0) g/dl Globulin gm/dL Albumin/Globulin Ratio (1-2) 06/29/21 06/29/21 Range/Units 11:19 11:19 WBC (4.23-9.07) K/mm3 RBC (4.63-6.08) M/mm3 Hgb (13.7-17.5) gm/dl Hct (40.1-51.0) % MCV (79.0-92.2) fl MCH (25.7-32.2) pg MCHC (32.2-35.5) g/dl RDW Std Deviation (35.1-43.9) fL Plt Count (163-337) K/mm3 MPV (9.4-12.3) fl Neut % (Auto) (34.0-67.9) % Lymph % (Auto) (21.8-53.1) % [place] % (Auto) (5.3-12.2) % Eos % (Auto) (0.8-7.0) Baso % (Auto) (0.1-1.2) % Neut # (Auto) (1.78-5.38) K/mm3 Lymph # (Auto) (1.32-3.57) K/mm3 [place] # (Auto) (0.30-0.82) K/mm3 Eos # (Auto) (0.04-0.54) K/mm3 Baso # (Auto) (0.01-0.08) K/mm3 PT 20.2 H D (9.7-12.0) SECONDS INR 1.91 Sodium 143 (136-145) mEq/L Potassium 4.7 (3.5-5.1) mEq/L Chloride 107 (98-107) mEq/L Carbon Dioxide 26 (21-32) mEq/L Anion Gap 14.7 (5-15) BUN 28 H (7-18) mg/dL Creatinine 1.5 H (0.7-1.3) mg/dL Est Cr Clr Drug Dosing 48.86 mL/min Estimated GFR (MDRD) 46 (>60) mL/min BUN/Creatinine Ratio 18.7 H (14-18) Glucose 106 H (70-99) mg/dL Calcium 8.8 (8.5-10.1) mg/dL Magnesium (1.8-2.4) mg/dL Total Bilirubin 1.0 (0.2-1.0) mg/dL AST 26 (15-37) U/L ALT 36 (16-63) U/L Alkaline Phosphatase 66 (46-116) U/L CK-MB (CK-2) (0-3.6) ng/ml Troponin I (0.00-0.056) ng/mL C-Reactive Protein (<1.0) mg/dL NT-Pro-B Natriuret Pep (0-125) pg/mL Total Protein 6.9 (6.4-8.2) g/dl Albumin 3.4 (3.4-5.0) g/dl Globulin 3.5 gm/dL Albumin/Globulin Ratio 1.0 (1-2) Result Diagrams: 06/29/21 11:19 06/29/21 11:19 Sepsis Event Note - Focused Exam Vital Signs: Vital Signs Temp Pulse Resp BP Pulse Ox 06/29/21 10:08 97.2 F 70 20 127/67 95 - Problem List (1) Presence of combination internal cardiac defibrillator (ICD) and pacemaker SNOMED Code(s): 936190929 ICD Code: Z95.810 - PRESENCE OF AUTOMATIC (IMPLANTABLE) CARDIAC DEFIBRILLATOR Status: Chronic Priority: Low Current Visit: No (2) HTN (hypertension) SNOMED Code(s): 50296304 ICD Code: I10 - ESSENTIAL (PRIMARY) HYPERTENSION Status: Chronic Priority: Medium Current Visit: No Qualifiers: Hypertension type: unspecified Qualified Code(s): I10 - Essential (primary) hypertension (3) History of carotid endarterectomy SNOMED Code(s): 918131942, 962087115 ICD Code: Z98.890 - OTHER SPECIFIED POSTPROCEDURAL STATES Status: Chronic Priority: Low Current Visit: No (4) History of left common carotid artery stent placement SNOMED Code(s): 383185224 ICD Code: Z98.890 - OTHER SPECIFIED POSTPROCEDURAL STATES; Z95.828 - PRESENCE OF OTHER VASCULAR IMPLANTS AND GRAFTS Status: Chronic Priority: Low Current Visit: No (5) COPD (chronic obstructive pulmonary disease) SNOMED Code(s): 75996877 ICD Code: J44.9 - CHRONIC OBSTRUCTIVE PULMONARY DISEASE, UNSPECIFIED Status: Chronic Priority: Low Current Visit: No Qualifiers: COPD type: unspecified COPD Qualified Code(s): J44.9 - Chronic obstructive pulmonary disease, unspecified (6) H/O recurrent pneumonia SNOMED Code(s): 424983545 ICD Code: Z87.01 - PERSONAL HISTORY OF PNEUMONIA (RECURRENT) Status: Chronic Priority: Low Current Visit: No (7) History of pneumothorax SNOMED Code(s): 273038755 ICD Code: Z87.09 - PERSONAL HISTORY OF OTHER DISEASES OF THE RESPIRATORY SYSTEM Status: Chronic Priority: Low Current Visit: No (8) Urinary incontinence SNOMED Code(s): 992121333 ICD Code: R32 - UNSPECIFIED URINARY INCONTINENCE Status: Chronic Priority: Medium Current Visit: Yes Qualifiers: Urinary Incontinence type: unspecified incontinence Qualified Code(s): R32 - Unspecified urinary incontinence (9) Arthritis SNOMED Code(s): 3622142 ICD Code: M19.90 - UNSPECIFIED OSTEOARTHRITIS, UNSPECIFIED SITE Status: Chronic Priority: Low Current Visit: No (10) History of CVA with residual deficit SNOMED Code(s): 408189578 ICD Code: I69.30 - UNSPECIFIED SEQUELAE OF CEREBRAL INFARCTION Status: Chronic Priority: Medium Current Visit: Yes (11) Left hemiplegia SNOMED Code(s): 681066232 ICD Code: G81.94 - HEMIPLEGIA, UNSPECIFIED AFFECTING LEFT NONDOMINANT SIDE Status: Chronic Priority: Medium Current Visit: Yes (12) Depression SNOMED Code(s): 32012444 ICD Code: F32.9 - MAJOR DEPRESSIVE DISORDER, SINGLE EPISODE, UNSPECIFIED Status: Chronic Priority: Low Current Visit: No Qualifiers: Depression Type: other depression Qualified Code(s): F32.89 - Other specifi ed depressive episodes (13) History of bladder cancer SNOMED Code(s): 197846572, 392448604 ICD Code: Z85.51 - PERSONAL HISTORY OF MALIGNANT NEOPLASM OF BLADDER Status: Chronic Priority: Low Current Visit: No (14) Acute exacerbation of CHF (congestive heart failure) SNOMED Code(s): 695625357, 82678173594951 ICD Code: I50.9 - HEART FAILURE, UNSPECIFIED Status: Acute Priority: High Current Visit: Yes Qualifiers: Heart failure type: diastolic Qualified Code(s): I50.33 - Acute on chronic diastolic (congestive) heart failure (15) Atrial fibrillation, chronic SNOMED Code(s): 940279285 ICD Code: I48.20 - CHRONIC ATRIAL FIBRILLATION, UNSPECIFIED Status: Chronic Priority: Medium Current Visit: Yes (16) FTT (failure to thrive) in adult SNOMED Code(s): 131537622 ICD Code: R62.7 - ADULT FAILURE TO THRIVE Status: Chronic Priority: High Current Visit: Yes (17) Weakness SNOMED Code(s): 50366625 ICD Code: R53.1 - WEAKNESS Status: Acute Priority: High Current Visit: Yes (18) Elevated troponin SNOMED Code(s): 745372034, 422325581, 924866893 ICD Code: R77.8 - OTHER SPECIFIED ABNORMALITIES OF PLASMA PROTEINS Status: Acute Priority: High Current Visit: Yes (19) Elevated brain natriuretic peptide (BNP) level SNOMED Code(s): 174381973, 408501670 ICD Code: R79.89 - OTHER SPECIFIED ABNORMAL FINDINGS OF BLOOD CHEMISTRY Status: Acute Priority: High Current Visit: Yes Problem List Initiated/Reviewed/Updated: Yes Orders Last 24hrs: Active Orders 24 hr Category Date Time Status Admission Status [Patient Status] [ADT] Routine ADT 06/29/21 12:49 Active Peripheral IV Care [RC] . DIRECTED Care 06/29/21 10:30 Active CORONAVIRUS COVID-19 BEBETO [MOLEC] Stat Lab 06/29/21 12:30 Received URINALYSIS W/MICROSCOPIC [UA W/MICROSCOPIC] [URIN] Stat Lab 06/29/21 10:25 Ordered Sodium Chloride 0.9% [Saline Flush] Med 06/29/21 10:30 Active 10 ml FLUSH ASDIRECTED PRN Peripheral IV Insertion Adult [OM.PC] Stat Oth 06/29/21 10:30 Ordered Medication Orders Sodium Chloride (Sodium Chloride 0.9% 10 Ml Syringe) 10 ml FLUSH ASDIRECTED PRN PRN Reason: Keep Vein Open Last Admin: 06/29/21 11:32 Dose: 10 ml Documented by: DWAIN Assessment/Plan Comment:: Assessment- day of admission 06/29/2021 * 71-year-old male who presents to ED via [facility] from home with chest heaviness and dyspnea on minimal exertion that have been ongoing for about a week. * History of A. fib, AICD, heart failure, hypertension, carotid and endarterectomy, left carotid artery stenting, COPD, recurrent pneumonia, pneumothorax, urinary incontinence, arthritis, CVA with residual left hemiplegia, depression, bladder cancer. * Last seen in the ED on June 15 due to incarcerated small hernia which was reduced and he has had no problems since. * During that visit he was given extra dose of Lasix and his home dose was increased with an extra 20 mg in the evening for 5 days. He was also increa sed to 40 mg in the morning. He had prior been on 20 mg of Lasix in the morning. * Recently had his implanted cardiac defibrillator/pacemaker switched from his left upper chest to his right upper chest due to an infection. * Reports a minimal nonproductive cough * Was in [facility] in September due to Covid symptoms and was hospitalized for 3 weeks * Has been in and out of the senior living since then. * Has chronic atrial fibrillation and dependent edema which is worse on the left side * On Coumadin and his dosing was changed 2 weeks ago. INR was checked a few days ago and it was normal at 2.2. * 12-lead EKG was obtained showing an atrial paced rhythm at 70 bpm with right axis deviation. There are small Q waves in V1 and a prominent R wave is noted in V1 as well. Q waves in inferior leads. T wave inversion from V2 through V6 and inferior leads. T wave flattening is noted in lead I. QT segment is moderately prolonged. No real change from EKG on June 15. * Labs are obtained * WBC of 7.84. * Hemoglobin 15.3. * Hematocrit 49.4. * He is macrocytic. * Platelets 113,000. * Neutrophils are elevated at 68.8. * Magnesium is 2.0. * CK-MB is 2.4. * Troponin 0 0.092. * CRP is 3.9. * proBNP is 13,499. * INR is 1.91. * Sodium 143. * Potassium 4.7. * Chloride 107. * Carbon dioxide 26. * Anion gap 14.7. * BUN is 28. Creatinine 1.5. GFR is 46. * Glucose 106. * Calcium 8.8. * Total bilirubin 1.0. * AST is 26, ALT 36, alkaline phosphatase 66. * Protein is 6.9. * Albumin is 3.4. * SARS-CoV-2 RNA is negative. * UA is negative. * Chest x-ray is obtained showing cardiomegaly with an AICD and other incidental findings. * He is given 40 mg IV push Lasix and is subsequently admitted to the ICU as a medical floor overflow for CHF exacerbation. PLAN: Acute exacerbation of CHF (congestive heart failure) Atrial fibrillation, chronic Presence of combination internal cardiac defibrillator (ICD) and pacemaker Elevated troponin Elevated brain natriuretic peptide (BNP) level * Heart healthy (low sodium) diet * 1.5L fluid restriction * Telemetry * Hold home lasix * 40mg BID lasix IVP * Monitor electrolytes * Strict I&O * Daily weights * Re-check troponin today and CKMB at 1700 to ensure stability; Trend as needed * Echocardiogram ordered * Aviation Maintenance Technician consultation * Continue home warfarin with pharmacy to dose * Daily INR FTT (failure to thrive) in adult Weakness History of CVA with residual deficit Left hemiplegia Arthritis * PT/OT evaluation * CM/SW * Patient and would like SNF placement * Aspiration precautions * Fall precautions HTN (hypertension) * Lasix as above with no other BP meds * Monitor vital signs History of carotid endarterectomy History of left common carotid artery stent placement * Continue home plavix * Continue warfarin with pharmacy to dose * No acute concerns * Daily INR COPD (chronic obstructive pulmonary disease) H/O recurrent pneumonia History of pneumothorax * No acute concerns * No home chronic respiratory meds * PRN DuoNebs * Monitor vital signs Urinary incontinence History of bladder cancer * Frequent brief changes * Consider condom catheter * Anticipate increased urinary output with diuresing Depression * No acute concerns * Continue home sertraline * Spiritual care consultation Code status DNR/DNI PCP: Dr. Wan from [facility] DVT prophylaxis: Continue home plavix and warfarin with pharmacy to dose Social: Patient resides with at home. He has been in and out of the senior living multiple times. Both feel he will need SNF placement. Disposition: Patient mated to the floor for CHF exacerbation and monitoring of troponin. Likely discharge Friday to SNF. - Mortality Measure Prognosis:: Poor <Guilherme Phillips - Last Filed: 06/29/21 15:33> H&P History of Present Illness - General Admit Problem/Dx: Admission Diagnosis/Problem Admission Diagnosis/Problem Congestive heart failure Exam - Vital Signs Vital Signs: Last Vital Signs Temp 36.3 C 06/29/21 15:31 Pulse 70 06/29/21 15:31 Resp 16 06/29/21 15:31 BP 151/77 H 06/29/21 15:31 Pulse Ox 98 06/29/21 15:31 - Patient Data Lab Results Last 24 hrs: Laboratory Results - last 24 hr 06/29/21 06/29/21 06/29/21 Range/Units 11:19 11:19 11:19 WBC 7.84 (4.23-9.07) K/mm3 RBC 5.20 (4.63-6.08) M/mm3 Hgb 15.3 (13.7-17.5) gm/dl Hct 49.4 (40.1-51.0) % MCV 95.0 H (79.0-92.2) fl MCH 29.4 (25.7-32.2) pg MCHC 31.0 L (32.2-35.5) g/dl RDW Std Deviation 51.8 H (35.1-43.9) fL Plt Count 113 L (163-337) K/mm3 MPV 10.5 (9.4-12.3) fl Neut % (Auto) 68.8 H (34.0-67.9) % Lymph % (Auto) 13.4 L (21.8-53.1) % [place] % (Auto) 14.4 H (5.3-12.2) % Eos % (Auto) 2.7 (0.8-7.0) Baso % (Auto) 0.4 (0.1-1.2) % Neut # (Auto) 5.40 H (1.78-5.38) K/mm3 Lymph # (Auto) 1.05 L (1.32-3.57) K/mm3 [place] # (Auto) 1.13 H (0.30-0.82) K/mm3 Eos # (Auto) 0.21 (0.04-0.54) K/mm3 Baso # (Auto) 0.03 (0.01-0.08) K/mm3 PT (9.7-12.0) SECONDS INR Sodium (136-145) mEq/L Potassium (3.5-5.1) mEq/L Chloride (98-107) mEq/L Carbon Dioxide (21-32) mEq/L Anion Gap (5-15) BUN (7-18) mg/dL Creatinine (0.7-1.3) mg/dL Est Cr Clr Drug Dosing mL/min Estimated GFR (MDRD) (>60) mL/min BUN/Creatinine Ratio (14-18) Glucose (70-99) mg/dL Calcium (8.5-10.1) mg/dL Magnesium 2.0 (1.8-2.4) mg/dL Total Bilirubin (0.2-1.0) mg/dL AST (15-37) U/L ALT (16-63) U/L Alkaline Phosphatase (46-116) U/L CK-MB (CK-2) 2.4 (0-3.6) ng/ml Troponin I 0.092 H* (0.00-0.056) ng/mL C-Reactive Protein 3.9 H* (<1.0) mg/dL NT-Pro-B Natriuret Pep 63009 H (0-125) pg/mL Total Protein (6.4-8.2) g/dl Albumin (3.4-5.0) g/dl Globulin gm/dL Albumin/Globulin Ratio (1-2) Urine Color (Yellow) Urine Appearance (Clear) Urine pH (5.0-8.0) Ur Specific [place] (1.005-1.030) Urine Protein (Negative) Urine Glucose (UA) (Negative) Urine Ketones (Negative) Urine Occult Blood (Negative) Urine Nitrite (Negative) Urine Bilirubin (Negative) Urine Urobilinogen (0.2-1.0) Ur Leukocyte Esterase (Negative) Urine RBC (0-5) /hpf Urine WBC (0-5) /hpf Ur Epithelial Cells (0-5) /hpf Urine Bacteria (FEW) /hpf Urine Mucus (FEW) /hpf SARS-CoV-2 RNA (BEBETO) (NEGATIVE) 06/29/21 06/29/21 06/29/21 Range/Units 11:19 11:19 12:30 WBC (4.23-9.07) K/mm3 RBC (4.63-6.08) M/mm3 Hgb (13.7-17.5) gm/dl Hct (40.1-51.0) % MCV (79.0-92.2) fl MCH (25.7-32.2) pg MCHC (32.2-35.5) g/dl RDW Std Deviation (35.1-43.9) fL Plt Count (163-337) K/mm3 MPV (9.4-12.3) fl Neut % (Auto) (34.0-67.9) % Lymph % (Auto) (21.8-53.1) % [place] % (Auto) (5.3-12.2) % Eos % (Auto) (0.8-7.0) Baso % (Auto) (0.1-1.2) % Neut # (Auto) (1.78-5.38) K/mm3 Lymph # (Auto) (1.32-3.57) K/mm3 [place] # (Auto) (0.30-0.82) K/mm3 Eos # (Auto) (0.04-0.54) K/mm3 Baso # (Auto) (0.01-0.08) K/mm3 PT 20.2 H D (9.7-12.0) SECONDS INR 1.91 Sodium 143 (136-145) mEq/L Potassium 4.7 (3.5-5.1) mEq/L Chloride 107 (98-107) mEq/L Carbon Dioxide 26 (21-32) mEq/L Anion Gap 14.7 (5-15) BUN 28 H (7-18) mg/dL Creatinine 1.5 H (0.7-1.3) mg/dL Est Cr Clr Drug Dosing 48.86 mL/min Estimated GFR (MDRD) 46 (>60) mL/min BUN/Creatinine Ratio 18.7 H (14-18) Glucose 106 H (70-99) mg/dL Calcium 8.8 (8.5-10.1) mg/dL Magnesium (1.8-2.4) mg/dL Total Bilirubin 1.0 (0.2-1.0) mg/dL AST 26 (15-37) U/L ALT 36 (16-63) U/L Alkaline Phosphatase 66 (46-116) U/L CK-MB (CK-2) (0-3.6) ng/ml Troponin I (0.00-0.056) ng/mL C-Reactive Protein (<1.0) mg/dL NT-Pro-B Natriuret Pep (0-125) pg/mL Total Protein 6.9 (6.4-8.2) g/dl Albumin 3.4 (3.4-5.0) g/dl Globulin 3.5 gm/dL Albumin/Globulin Ratio 1.0 (1-2) Urine Color (Yellow) Urine Appearance (Clear) Urine pH (5.0-8.0) Ur Specific [place] (1.005-1.030) Urine Protein (Negative) Urine Glucose (UA) (Negative) Urine Ketones (Negative) Urine Occult Blood (Negative) Urine Nitrite (Negative) Urine Bilirubin (Negative) Urine Urobilinogen (0.2-1.0) Ur Leukocyte Esterase (Negative) Urine RBC (0-5) /hpf Urine WBC (0-5) /hpf Ur Epithelial Cells (0-5) /hpf Urine Bacteria (FEW) /hpf Urine Mucus (FEW) /hpf SARS-CoV-2 RNA (BEBETO) Negative (NEGATIVE) 06/29/21 Range/Units 14:25 WBC (4.23-9.07) K/mm3 RBC (4.63-6.08) M/mm3 Hgb (13.7-17.5) gm/dl Hct (40.1-51.0) % MCV (79.0-92.2) fl MCH (25.7-32.2) pg MCHC (32.2-35.5) g/dl RDW Std Deviation (35.1-43.9) fL Plt Count (163-337) K/mm3 MPV (9.4-12.3) fl Neut % (Auto) (34.0-67.9) % Lymph % (Auto) (21.8-53.1) % [place] % (Auto) (5.3-12.2) % Eos % (Auto) (0.8-7.0) Baso % (Auto) (0.1-1.2) % Neut # (Auto) (1.78-5.38) K/mm3 Lymph # (Auto) (1.32-3.57) K/mm3 [place] # (Auto) (0.30-0.82) K/mm3 Eos # (Auto) (0.04-0.54) K/mm3 Baso # (Auto) (0.01-0.08) K/mm3 PT (9.7-12.0) SECONDS INR Sodium (136-145) mEq/L Potassium (3.5-5.1) mEq/L Chloride (98-107) mEq/L Carbon Dioxide (21-32) mEq/L Anion Gap (5-15) BUN (7-18) mg/dL Creatinine (0.7-1.3) mg/dL Est Cr Clr Drug Dosing mL/min Estimated GFR (MDRD) (>60) mL/min BUN/Creatinine Ratio (14-18) Glucose (70-99) mg/dL Calcium (8.5-10.1) mg/dL Magnesium (1.8-2.4) mg/dL Total Bilirubin (0.2-1.0) mg/dL AST (15-37) U/L ALT (16-63) U/L Alkaline Phosphatase (46-116) U/L CK-MB (CK-2) (0-3.6) ng/ml Troponin I (0.00-0.056) ng/mL C-Reactive Protein (<1.0) mg/dL NT-Pro-B Natriuret Pep (0-125) pg/mL Total Protein (6.4-8.2) g/dl Albumin (3.4-5.0) g/dl Globulin gm/dL Albumin/Globulin Ratio (1-2) Urine Color Light yellow (Yellow) Urine Appearance Clear (Clear) Urine pH 6.5 (5.0-8.0) Ur Specific [place] 1.020 (1.005-1.030) Urine Protein Negative (Negative) Urine Glucose (UA) Negative (Negative) Urine Ketones Negative (Negative) Urine Occult Blood Negative (Negative) Urine Nitrite Negative (Negative) Urine Bilirubin Negative (Negative) Urine Urobilinogen 0.2 (0.2-1.0) Ur Leukocyte Esterase Negative (Negative) Urine RBC 0-5 (0-5) /hpf Urine WBC Not seen (0-5) /hpf Ur Epithelial Cells Not seen (0-5) /hpf Urine Bacteria Rare (FEW) /hpf Urine Mucus Not seen (FEW) /hpf SARS-CoV-2 RNA (BEBETO) (NEGATIVE) Result Diagrams: 06/29/21 11:19 06/29/21 11:19 Sepsis Event Note - Focused Exam Vital Signs: Vital Signs Temp Pulse Resp BP Pulse Ox 06/29/21 15:31 36.3 C 70 16 151/77 H 98 06/29/21 10:08 36.2 C 70 20 127/67 95 Orders Last 24hrs: Active Orders 24 hr Category Date Time Status Admission Status [Patient Status] [ADT] Routine ADT 06/29/21 12:49 Active Aspiration Precautions [RC] ASDIRECTED Care 06/29/21 14:01 Active Cardiac Monitoring [RC] CONTINUOUS Care 06/29/21 14:02 Active Height and Weight [RC] DAILY Care 06/29/21 14:01 Active Intake and Output Strict [RC] ASDIRECTED Care 06/29/21 14:01 Active Oxygen Therapy [RC] ASDIRECTED Care 06/29/21 14:01 Active Peripheral IV Care [RC] . DIRECTED Care 06/29/21 10:30 Active Pulse Oximetry [RC] PRN Care 06/29/21 14:02 Active RT Aerosol Therapy [RC] ASDIRECTED Care 06/29/21 15:00 Active Up With Assistance [RC] ASDIRECTED Care 06/29/21 14:01 Active Up to Chair [RC] ASDIRECTED Care 06/29/21 14:01 Active Vital Signs [RC] Q6H Care 06/29/21 14:01 Active Consult to Case Management/Nursing Director [CONS] Cons 06/29/21 14:01 Active Routine Consult to Aviation Maintenance Technician [CONS] Routine Cons 06/29/21 14:01 Active Consult to Spiritual Care [CONS] Routine Cons 06/29/21 14:01 Active OT Evaluation and Treatment [CONS] Routine Cons 06/29/21 14:03 Active PT Evaluation and Treatment [CONS] Routine Cons 06/29/21 14:03 Active Fluid Restriction [DIET] Diet 06/29/21 Lunch Active Heart Healthy Diet [DIET] Diet 06/29/21 Lunch Active Echo Comp wo Cont [US] Routine Exams 06/29/21 14:01 Ordered CBC WITH AUTO DIFF [HEME] AM Lab 06/30/21 05:11 Ordered CBC WITH AUTO DIFF [HEME] AM Lab 07/01/21 05:11 Ordered CBC WITH AUTO DIFF [HEME] AM Lab 07/02/21 05:11 Ordered CBC WITH AUTO DIFF [HEME] AM Lab 07/03/21 05:11 Ordered CKMB [CHEM] Routine Lab 06/29/21 17:00 Ordered COMPREHENSIVE METABOLIC PN,CMP [CHEM] AM Lab 06/30/21 05:11 Ordered COMPREHENSIVE METABOLIC PN,CMP [CHEM] AM Lab 07/01/21 05:11 Ordered COMPREHENSIVE METABOLIC PN,CMP [CHEM] AM Lab 07/02/21 05:11 Ordered COMPREHENSIVE METABOLIC PN,CMP [CHEM] AM Lab 07/03/21 05:11 Ordered INR,PT,PROTHROMBIN TIME [COAG] AM Lab 06/30/21 05:11 Ordered INR,PT,PROTHROMBIN TIME [COAG] AM Lab 07/01/21 05:11 Ordered INR,PT,PROTHROMBIN TIME [COAG] AM Lab 07/02/21 05:11 Ordered INR,PT,PROTHROMBIN TIME [COAG] AM Lab 07/03/21 05:11 Ordered MAGNESIUM [CHEM] AM Lab 06/30/21 05:11 Ordered MAGNESIUM [CHEM] AM Lab 07/01/21 05:11 Ordered MAGNESIUM [CHEM] AM Lab 07/02/21 05:11 Ordered MAGNESIUM [CHEM] AM Lab 07/03/21 05:11 Ordered TROPONIN I [CHEM] Timed Lab 06/29/21 17:00 Ordered Acetaminophen [TylenoL] Med 06/29/21 14:01 Active 650 mg PO Q4H PRN Albuterol/Ipratropium [DuoNeb 3.0-0.5 MG/3 ML] Med 06/29/21 15:00 Active 3 ml NEB QIDRT PRN Cholecalciferol (Vitamin D3) [Vitamin D3] Med 06/30/21 09:00 Active 50 mcg PO DAILY Clopidogrel [Plavix] Med 06/30/21 09:00 Active 75 mg PO DAILY Docusate Sodium [Colace] Med 06/29/21 14:01 Active 100 mg PO Q12H PRN Docusate Sodium/Sennosides [Senna Plus] Med 06/29/21 14:07 Active 2 tab PO DAILY PRN Furosemide [Lasix] Med 06/30/21 06:00 Active 40 mg IVPUSH BIDDIURETIC Furosemide [Lasix] Med 06/29/21 16:30 Once 40 mg IVPUSH NOW ONE Ondansetron [Zofran] Med 06/29/21 14:01 Active 4 mg IV Q6H PRN Pharmacy to Dose - Warfarin Med 06/29/21 14:15 Active 0 dose .XX ASDIRECTED PRN Potassium Chloride [Klor-Con M20] Med 06/30/21 09:00 Active 20 meq PO DAILY Saccharomyces Boulardii [Florastor] Med 06/30/21 09:00 Active 250 mg PO DAILY Sertraline [Zoloft] Med 06/30/21 09:00 Active 50 mg PO DAILY Sodium Chloride 0.9% [Saline Flush] Med 06/29/21 10:30 Active 10 ml FLUSH ASDIRECTED PRN Warfarin [Coumadin] Med 06/29/21 18:00 Active 4 mg PO QPM carvediloL [Coreg] Med 06/29/21 21:00 Active 25 mg PO BID Peripheral IV Insertion Adult [OM.PC] Stat Oth 06/29/21 10:30 Ordered Precautions [COMM] Routine Oth 06/29/21 14:04 Ordered Resuscitation Status Routine Resus Stat 06/29/21 14:01 Ordered Medication Orders Acetaminophen (Acetaminophen 325 Mg Tab) 650 mg PO Q4H PRN PRN Reason: Pain (Mild 1-3)/fever Albuterol/Ipratropium (Albuterol/Ipratropium 3.0-0.5 Mg/3 Ml Neb Soln) 3 ml NEB QIDRT PRN PRN Reason: wheezing/SOB/cough Carvedilol (Carvedilol 12.5 Mg Tab) 25 mg PO BID KENDRICK Cholecalciferol (Cholecalciferol (Vitamin D3) 25 Mcg Tab) 50 mcg PO DAILY KENDRICK Clopidogrel Bisulfate (Clopidogrel 75 Mg Tab) 75 mg PO DAILY KENDRICK Docusate Sodium (Docusate Sodium 100 Mg Cap) 100 mg PO Q12H PRN PRN Reason: Constipation Furosemide (Furosemide 40 Mg/4 Ml Vial) 40 mg IVPUSH BIDDIURETIC KENDRICK Furosemide (Furosemide 40 Mg/4 Ml Vial) 40 mg IVPUSH NOW ONE Stop: 06/29/21 16:31 Ondansetron HCl (Ondansetron 4 Mg/2 Ml Sdv) 4 mg IV Q6H PRN PRN Reason: Nausea/Vomiting Potassium Chloride (Potassium Chloride 20 Meq Tab.Er) 20 meq PO DAILY [facility] Saccharomyces Boulardii (Saccharomyces Boulardii (Probiotic) 250 Mg Cap) 250 mg PO DAILY [facility] Senna/Docusate Sodium (Docusate Sodium/Sennosides 50-8.6 Mg Tab) 2 tab PO DAILY PRN PRN Reason: Constipation Sertraline HCl (Sertraline 50 Mg Tab) 50 mg PO DAILY [facility] Sodium Chloride (Sodium Chloride 0.9% 10 Ml Syringe) 10 ml FLUSH ASDIRECTED PRN PRN Reason: Keep Vein Open Last Admin: 06/29/21 11:32 Dose: 10 ml Documented by: DWAIN Warfarin Sodium (Pharmacy To Dose - Warfarin) 0 dose .XX ASDIRECTED PRN PRN Reason: RX TO DOSE COUMADIN Warfarin Sodium (Warfarin 4 Mg Tab) 4 mg PO QPM [facility] Stop: 06/29/21 21:00 - Free Text/Narrative Note: The patient has been doing well on room air. He has been discharged on a azithromycin 500 mg p.o. daily for 5 days. The patient also has been given a prescription for dexamethasone 6 mg p.o. daily for 8 days. The patient says that he feels like he can go home. The patient has been having the diet as tolerated and is recommended to continue with this. He also has been recommended to continue with his physical activity as tolerated. The patient has been discharged from acute hospitalization with the recommendations listed above. He is to follow-up with his primary care physician.
[2021-06-29] MEDS ORDERED: Ondansetron 4 MG/2 ML SDV IV PRN (14:01)
[2021-06-29] MEDS ORDERED: Docusate Sodium 100 MG Cap PO PRN (14:01)
[2021-06-29] MEDS ORDERED: Albuterol/Ipratropium 3.0-0.5 MG/3 ML Neb Soln NEB PRN (15:00)
[2021-06-29] MEDS ORDERED: Warfarin 4 MG Tab PO SCH (18:00)
[2021-06-29] MEDS: Carvedilol 12.5 MG Tab PO SCH (20:28)
[2021-06-30] MEDS: Acetaminophen 325 MG Tab PO PRN ×3 (00:37→20:20)
[2021-06-30] MEDS: Furosemide 40 MG/4 ML VIAL IVPUSH SCH ×2 (06:45→14:04)
--- NOTE | 2021-06-30 07:38 | PCM.PN ---
- General Info Date of Service: 06/30/21 Admission Dx/Problem (Free Text): Admission Diagnosis/Problem Admission Diagnosis/Problem Congestive heart failure Subjective Update: The patient is a 71-year-old gentleman who was admitted to acute hospitalization June 29, 2021 due to worsening congestive heart failure. The patient reports that he had been recently released from rehab that he felt was too soon and at home he was unable to function well at home. Patient says today that he is feeling better. He is feeling weak. The patient was diuresed and lost appr oximately 15 pounds. The patient says that he is breathing better. He does feel improved today. Functional Status: Reports: Pain Controlled, Tolerating Diet - Review of Systems General: Reports: Weakness, Fatigue HEENT: Reports: No Symptoms Pulmonary: Denies: Shortness of Breath, Pleuritic Chest Pain Cardiovascular: Reports: Orthopnea, Edema Gastrointestinal: Reports: No Symptoms Genitourinary: Reports: No Symptoms Musculoskeletal: Reports: No Symptoms Skin: Reports: No Symptoms Neurological: Reports: Pre-Existing Deficit Psychiatric: Reports: No Symptoms - Patient Data Vitals - Most Recent: Last Vital Signs Temp 36.2 C 06/30/21 04:00 Pulse 70 06/29/21 20:28 Resp 16 06/30/21 04:00 BP 142/65 H 06/30/21 04:00 Pulse Ox 95 06/30/21 05:00 Weight - Most Recent: 85.956 kg I&O - Last 24 Hours: Intake & Output 06/29/21 06/30/21 06/30/21 22:59 06:59 14:59 Intake Total 160 200 Output Total 875 450 250 Balance -715 -250 -250 Lab Results Last 24 Hours: Laboratory Results - last 24 hr 06/29/21 06/29/21 06/29/21 Range/Units 11:19 11:19 11:19 WBC 7.84 (4.23-9.07) K/mm3 RBC 5.20 (4.63-6.08) M/mm3 Hgb 15.3 (13.7-17.5) gm/dl Hct 49.4 (40.1-51.0) % MCV 95.0 H (79.0-92.2) fl MCH 29.4 (25.7-32.2) pg MCHC 31.0 L (32.2-35.5) g/dl RDW Std Deviation 51.8 H (35.1-43.9) fL Plt Count 113 L (163-337) K/mm3 MPV 10.5 (9.4-12.3) fl Neut % (Auto) 68.8 H (34.0-67.9) % Lymph % (Auto) 13.4 L (21.8-53.1) % Archer % (Auto) 14.4 H (5.3-12.2) % Eos % (Auto) 2.7 (0.8-7.0) Baso % (Auto) 0.4 (0.1-1.2) % Neut # (Auto) 5.40 H (1.78-5.38) K/mm3 Lymph # (Auto) 1.05 L (1.32-3.57) K/mm3 Archer # (Auto) 1.13 H (0.30-0.82) K/mm3 Eos # (Auto) 0.21 (0.04-0.54) K/mm3 Baso # (Auto) 0.03 (0.01-0.08) K/mm3 PT (9.7-12.0) SECONDS INR Sodium (136-145) mEq/L Potassium (3.5-5.1) mEq/L Chloride (98-107) mEq/L Carbon Dioxide (21-32) mEq/L Anion Gap (5-15) BUN (7-18) mg/dL Creatinine (0.7-1.3) mg/dL Est Cr Clr Drug Dosing mL/min Estimated GFR (MDRD) (>60) mL/min BUN/Creatinine Ratio (14-18) Glucose (70-99) mg/dL Calcium (8.5-10.1) mg/dL Magnesium 2.0 (1.8-2.4) mg/dL Total Bilirubin (0.2-1.0) mg/dL AST (15-37) U/L ALT (16-63) U/L Alkaline Phosphatase (46-116) U/L CK-MB (CK-2) 2.4 (0-3.6) ng/ml Troponin I 0.092 H* (0.00-0.056) ng/mL C-Reactive Protein 3.9 H* (<1.0) mg/dL NT-Pro-B Natriuret Pep 21359 H (0-125) pg/mL Total Protein (6.4-8.2) g/dl Albumin (3.4-5.0) g/dl Globulin gm/dL Albumin/Globulin Ratio (1-2) Urine Color (Yellow) Urine Appearance (Clear) Urine pH (5.0-8.0) Ur Specific Oto (1.005-1.030) Urine Protein (Negative) Urine Glucose (UA) (Negative) Urine Ketones (Negative) Urine Occult Blood (Negative) Urine Nitrite (Negative) Urine Bilirubin (Negative) Urine Urobilinogen (0.2-1.0) Ur Leukocyte Esterase (Negative) Urine RBC (0-5) /hpf Urine WBC (0-5) /hpf Ur Epithelial Cells (0-5) /hpf Urine Bacteria (FEW) /hpf Urine Mucus (FEW) /hpf SARS-CoV-2 RNA (BEBETO) (NEGATIVE) 06/29/21 06/29/21 06/29/21 Range/Units 11:19 11:19 12:30 WBC (4.23-9.07) K/mm3 RBC (4.63-6.08) M/mm3 Hgb (13.7-17.5) gm/dl Hct (40.1-51.0) % MCV (79.0-92.2) fl MCH (25.7-32.2) pg MCHC (32.2-35.5) g/dl RDW Std Deviation (35.1-43.9) fL Plt Count (163-337) K/mm3 MPV (9.4-12.3) fl Neut % (Auto) (34.0-67.9) % Lymph % (Auto) (21.8-53.1) % Archer % (Auto) (5.3-12.2) % Eos % (Auto) (0.8-7.0) Baso % (Auto) (0.1-1.2) % Neut # (Auto) (1.78-5.38) K/mm3 Lymph # (Auto) (1.32-3.57) K/mm3 Archer # (Auto) (0.30-0.82) K/mm3 Eos # (Auto) (0.04-0.54) K/mm3 Baso # (Auto) (0.01-0.08) K/mm3 PT 20.2 H D (9.7-12.0) SECONDS INR 1.91 Sodium 143 (136-145) mEq/L Potassium 4.7 (3.5-5.1) mEq/L Chloride 107 (98-107) mEq/L Carbon Dioxide 26 (21-32) mEq/L Anion Gap 14.7 (5-15) BUN 28 H (7-18) mg/dL Creatinine 1.5 H (0.7-1.3) mg/dL Est Cr Clr Drug Dosing 48.86 mL/min Estimated GFR (MDRD) 46 (>60) mL/min BUN/Creatinine Ratio 18.7 H (14-18) Glucose 106 H (70-99) mg/dL Calcium 8.8 (8.5-10.1) mg/dL Magnesium (1.8-2.4) mg/dL Total Bilirubin 1.0 (0.2-1.0) mg/dL AST 26 (15-37) U/L ALT 36 (16-63) U/L Alkaline Phosphatase 66 (46-116) U/L CK-MB (CK-2) (0-3.6) ng/ml Troponin I (0.00-0.056) ng/mL C-Reactive Protein (<1.0) mg/dL NT-Pro-B Natriuret Pep (0-125) pg/mL Total Protein 6.9 (6.4-8.2) g/dl Albumin 3.4 (3.4-5.0) g/dl Globulin 3.5 gm/dL Albumin/Globulin Ratio 1.0 (1-2) Urine Color (Yellow) Urine Appearance (Clear) Urine pH (5.0-8.0) Ur Specific Oto (1.005-1.030) Urine Protein (Negative) Urine Glucose (UA) (Negative) Urine Ketones (Negative) Urine Occult Blood (Negative) Urine Nitrite (Negative) Urine Bilirubin (Negative) Urine Urobilinogen (0.2-1.0) Ur Leukocyte Esterase (Negative) Urine RBC (0-5) /hpf Urine WBC (0-5) /hpf Ur Epithelial Cells (0-5) /hpf Urine Bacteria (FEW) /hpf Urine Mucus (FEW) /hpf SARS-CoV-2 RNA (BEBETO) Negative (NEGATIVE) 06/29/21 06/29/21 06/29/21 Range/Units 14:25 17:08 17:08 WBC (4.23-9.07) K/mm3 RBC (4.63-6.08) M/mm3 Hgb (13.7-17.5) gm/dl Hct (40.1-51.0) % MCV (79.0-92.2) fl MCH (25.7-32.2) pg MCHC (32.2-35.5) g/dl RDW Std Deviation (35.1-43.9) fL Plt Count (163-337) K/mm3 MPV (9.4-12.3) fl Neut % (Auto) (34.0-67.9) % Lymph % (Auto) (21.8-53.1) % Archer % (Auto) (5.3-12.2) % Eos % (Auto) (0.8-7.0) Baso % (Auto) (0.1-1.2) % Neut # (Auto) (1.78-5.38) K/mm3 Lymph # (Auto) (1.32-3.57) K/mm3 Archer # (Auto) (0.30-0.82) K/mm3 Eos # (Auto) (0.04-0.54) K/mm3 Baso # (Auto) (0.01-0.08) K/mm3 PT (9.7-12.0) SECONDS INR Sodium (136-145) mEq/L Potassium (3.5-5.1) mEq/L Chloride (98-107) mEq/L Carbon Dioxide (21-32) mEq/L Anion Gap (5-15) BUN (7-18) mg/dL Creatinine (0.7-1.3) mg/dL Est Cr Clr Drug Dosing mL/min Estimated GFR (MDRD) (>60) mL/min BUN/Creatinine Ratio (14-18) Glucose (70-99) mg/dL Calcium (8.5-10.1) mg/dL Magnesium (1.8-2.4) mg/dL Total Bilirubin (0.2-1.0) mg/dL AST (15-37) U/L ALT (16-63) U/L Alkaline Phosphatase (46-116) U/L CK-MB (CK-2) 34.0 H (0-3.6) ng/ml Troponin I 0.066 H* (0.00-0.056) ng/mL C-Reactive Protein (<1.0) mg/dL NT-Pro-B Natriuret Pep (0-125) pg/mL Total Protein (6.4-8.2) g/dl Albumin (3.4-5.0) g/dl Globulin gm/dL Albumin/Globulin Ratio (1-2) Urine Color Light yellow (Yellow) Urine Appearance Clear (Clear) Urine pH 6.5 (5.0-8.0) Ur Specific Oto 1.020 (1.005-1.030) Urine Protein Negative (Negative) Urine Glucose (UA) Negative (Negative) Urine Ketones Negative (Negative) Urine Occult Blood Negative (Negative) Urine Nitrite Negative (Negative) Urine Bilirubin Negative (Negative) Urine Urobilinogen 0.2 (0.2-1.0) Ur Leukocyte Esterase Negative (Negative) Urine RBC 0-5 (0-5) /hpf Urine WBC Not seen (0-5) /hpf Ur Epithelial Cells Not seen (0-5) /hpf Urine Bacteria Rare (FEW) /hpf Urine Mucus Not seen (FEW) /hpf SARS-CoV-2 RNA (BEBETO) (NEGATIVE) 06/30/21 06/30/21 06/30/21 Range/Units 04:40 04:40 04:40 WBC 8.00 (4.23-9.07) K/mm3 RBC 5.23 (4.63-6.08) M/mm3 Hgb 15.3 (13.7-17.5) gm/dl Hct 49.3 (40.1-51.0) % MCV 94.3 H (79.0-92.2) fl MCH 29.3 (25.7-32.2) pg MCHC 31.0 L (32.2-35.5) g/dl RDW Std Deviation 52.2 H (35.1-43.9) fL Plt Count 136 L (163-337) K/mm3 MPV 10.4 (9.4-12.3) fl Neut % (Auto) 62.2 (34.0-67.9) % Lymph % (Auto) 18.5 L (21.8-53.1) % Archer % (Auto) 14.3 H (5.3-12.2) % Eos % (Auto) 4.1 (0.8-7.0) Baso % (Auto) 0.5 (0.1-1.2) % Neut # (Auto) 4.98 (1.78-5.38) K/mm3 Lymph # (Auto) 1.48 (1.32-3.57) K/mm3 Archer # (Auto) 1.14 H (0.30-0.82) K/mm3 Eos # (Auto) 0.33 (0.04-0.54) K/mm3 Baso # (Auto) 0.04 (0.01-0.08) K/mm3 PT 19.3 H (9.7-12.0) SECONDS INR 1.83 Sodium 143 (136-145) mEq/L Potassium 3.9 (3.5-5.1) mEq/L Chloride 106 (98-107) mEq/L Carbon Dioxide 30 (21-32) mEq/L Anion Gap 10.9 (5-15) BUN 31 H (7-18) mg/dL Creatinine 1.6 H (0.7-1.3) mg/dL Est Cr Clr Drug Dosing 45.81 mL/min Estimated GFR (MDRD) 43 (>60) mL/min BUN/Creatinine Ratio 19.4 H (14-18) Glucose 107 H (70-99) mg/dL Calcium 8.3 L (8.5-10.1) mg/dL Magnesium 1.9 (1.8-2.4) mg/dL Total Bilirubin 0.9 (0.2-1.0) mg/dL AST 22 (15-37) U/L ALT 34 (16-63) U/L Alkaline Phosphatase 64 (46-116) U/L CK-MB (CK-2) (0-3.6) ng/ml Troponin I (0.00-0.056) ng/mL C-Reactive Protein (<1.0) mg/dL NT-Pro-B Natriuret Pep (0-125) pg/mL Total Protein 6.9 (6.4-8.2) g/dl Albumin 3.2 L (3.4-5.0) g/dl Globulin 3.7 gm/dL Albumin/Globulin Ratio 0.9 L (1-2) Urine Color (Yellow) Urine Appearance (Clear) Urine pH (5.0-8.0) Ur Specific Oto (1.005-1.030) Urine Protein (Negative) Urine Glucose (UA) (Negative) Urine Ketones (Negative) Urine Occult Blood (Negative) Urine Nitrite (Negative) Urine Bilirubin (Negative) Urine Urobilinogen (0.2-1.0) Ur Leukocyte Esterase (Negative) Urine RBC (0-5) /hpf Urine WBC (0-5) /hpf Ur Epithelial Cells (0-5) /hpf Urine Bacteria (FEW) /hpf Urine Mucus (FEW) /hpf SARS-CoV-2 RNA (BEBETO) (NEGATIVE) Med Orders - Current: Current Medications Acetaminophen (Acetaminophen 325 Mg Tab) 650 mg PO Q4H PRN PRN Reason: Pain (Mild 1-3)/fever Last Admin: 06/30/21 00:37 Dose: 650 mg Documented by: Albuterol/Ipratropium (Albuterol/Ipratropium 3.0-0.5 Mg/3 Ml Neb Soln) 3 ml NEB QIDRT PRN PRN Reason: wheezing/SOB/cough Carvedilol (Carvedilol 12.5 Mg Tab) 25 mg PO BID [facility] [place] Last Admin: 06/29/21 20:28 Dose: 25 mg Documented by: Cholecalciferol (Cholecalciferol (Vitamin D3) 25 Mcg Tab) 50 mcg PO DAILY [facility] [place] Clopidogrel Bisulfate (Clopidogrel 75 Mg Tab) 75 mg PO DAILY [facility] [place] Docusate Sodium (Docusate Sodium 100 Mg Cap) 100 mg PO Q12H PRN PRN Reason: Constipation Furosemide (Furosemide 40 Mg/4 Ml Vial) 40 mg IVPUSH BIDDIURETIC [facility] [place] Last Admin: 06/30/21 06:45 Dose: 40 mg Documented by: Ondansetron HCl (Ondansetron 4 Mg/2 Ml Sdv) 4 mg IV Q6H PRN PRN Reason: Nausea/Vomiting Potassium Chloride (Potassium Chloride 20 Meq Tab.Er) 20 meq PO DAILY [facility] [place] Saccharomyces Boulardii (Saccharomyces Boulardii (Probiotic) 250 Mg Cap) 250 mg PO DAILY [facility] [place] Senna/Docusate Sodium (Docusate Sodium/Sennosides 50-8.6 Mg Tab) 2 tab PO DAILY PRN PRN Reason: Constipation Sertraline HCl (Sertraline 50 Mg Tab) 50 mg PO DAILY [facility] Sodium Chloride (Sodium Chloride 0.9% 10 Ml Syringe) 10 ml FLUSH ASDIRECTED PRN PRN Reason: Keep Vein Open Last Admin: 06/29/21 20:29 Dose: 10 ml Documented by: Warfarin Sodium (Pharmacy To Dose - Warfarin) 0 dose .XX ASDIRECTED PRN PRN Reason: RX TO DOSE COUMADIN Discontinued Medications Furosemide (Furosemide 40 Mg/4 Ml Vial) 40 mg IVPUSH NOW ONE Stop: 06/29/21 10:31 Last Admin: 06/29/21 11:32 Dose: 40 mg Documented by: Furosemide (Furosemide 40 Mg/4 Ml Vial) 40 mg IVPUSH NOW ONE Stop: 06/29/21 15:01 Furosemide (Furosemide 40 Mg/4 Ml Vial) 40 mg IVPUSH NOW ONE Stop: 06/29/21 16:31 Last Admin: 06/29/21 17:20 Dose: 40 mg Documented by: Warfarin Sodium (Warfarin 4 Mg Tab) 4 mg PO QPM KENDRICK Stop: 06/29/21 21:00 Last Admin: 06/29/21 17:20 Dose: 4 mg Documented by: - Exam Quality Assessment: Supplemental Oxygen, DVT Prophylaxis General: Alert, Oriented, Cooperative, No Acute Distress HEENT: Pupils Equal, Pupils Reactive, EOMI Neck: Supple, Trachea Midline Lungs: Clear to Auscultation, Normal Respiratory Effort Cardiovascular: Regular Rate, Regular Rhythm GI/Abdominal Exam: Normal Bowel Sounds, Soft, No Distention (Male) Exam: Deferred Back Exam: No: Normal Inspection (Appropriate for age), Full Range of Motion (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 No: Normal Range of Motion (Spastic hemiparesis) Skin: Warm, Dry, Intact Neurological: No New Focal Deficit Psy/Mental Status: Alert, Normal Affect - Patient Data Lab Results Last 24 hrs: Laboratory Results - last 24 hr 06/29/21 06/29/21 06/29/21 Range/Units 11:19 11:19 11:19 WBC 7.84 (4.23-9.07) K/mm3 RBC 5.20 (4.63-6.08) M/mm3 Hgb 15.3 (13.7-17.5) gm/dl Hct 49.4 (40.1-51.0) % MCV 95.0 H (79.0-92.2) fl MCH 29.4 (25.7-32.2) pg MCHC 31.0 L (32.2-35.5) g/dl RDW Std Deviation 51.8 H (35.1-43.9) fL Plt Count 113 L (163-337) K/mm3 MPV 10.5 (9.4-12.3) fl Neut % (Auto) 68.8 H (34.0-67.9) % Lymph % (Auto) 13.4 L (21.8-53.1) % Archer % (Auto) 14.4 H (5.3-12.2) % Eos % (Auto) 2.7 (0.8-7.0) Baso % (Auto) 0.4 (0.1-1.2) % Neut # (Auto) 5.40 H (1.78-5.38) K/mm3 Lymph # (Auto) 1.05 L (1.32-3.57) K/mm3 Archer # (Auto) 1.13 H (0.30-0.82) K/mm3 Eos # (Auto) 0.21 (0.04-0.54) K/mm3 Baso # (Auto) 0.03 (0.01-0.08) K/mm3 PT (9.7-12.0) SECONDS INR Sodium (136-145) mEq/L Potassium (3.5-5.1) mEq/L Chloride (98-107) mEq/L Carbon Dioxide (21-32) mEq/L Anion Gap (5-15) BUN (7-18) mg/dL Creatinine (0.7-1.3) mg/dL Est Cr Clr Drug Dosing mL/min Estimated GFR (MDRD) (>60) mL/min BUN/Creatinine Ratio (14-18) Glucose (70-99) mg/dL Calcium (8.5-10.1) mg/dL Magnesium 2.0 (1.8-2.4) mg/dL Total Bilirubin (0.2-1.0) mg/dL AST (15-37) U/L ALT (16-63) U/L Alkaline Phosphatase (46-116) U/L CK-MB (CK-2) 2.4 (0-3.6) ng/ml Troponin I 0.092 H* (0.00-0.056) ng/mL C-Reactive Protein 3.9 H* (<1.0) mg/dL NT-Pro-B Natriuret Pep 36938 H (0-125) pg/mL Total Protein (6.4-8.2) g/dl Albumin (3.4-5.0) g/dl Globulin gm/dL Albumin/Globulin Ratio (1-2) Urine Color (Yellow) Urine Appearance (Clear) Urine pH (5.0-8.0) Ur Specific Oto (1.005-1.030) Urine Protein (Negative) Urine Glucose (UA) (Negative) Urine Ketones (Negative) Urine Occult Blood (Negative) Urine Nitrite (Negative) Urine Bilirubin (Negative) Urine Urobilinogen (0.2-1.0) Ur Leukocyte Esterase (Negative) Urine RBC (0-5) /hpf Urine WBC (0-5) /hpf Ur Epithelial Cells (0-5) /hpf Urine Bacteria (FEW) /hpf Urine Mucus (FEW) /hpf SARS-CoV-2 RNA (BEBETO) (NEGATIVE) 06/29/21 06/29/21 06/29/21 Range/Units 11:19 11:19 12:30 WBC (4.23-9.07) K/mm3 RBC (4.63-6.08) M/mm3 Hgb (13.7-17.5) gm/dl Hct (40.1-51.0) % MCV (79.0-92.2) fl MCH (25.7-32.2) pg MCHC (32.2-35.5) g/dl RDW Std Deviation (35.1-43.9) fL Plt Count (163-337) K/mm3 MPV (9.4-12.3) fl Neut % (Auto) (34.0-67.9) % Lymph % (Auto) (21.8-53.1) % Archer % (Auto) (5.3-12.2) % Eos % (Auto) (0.8-7.0) Baso % (Auto) (0.1-1.2) % Neut # (Auto) (1.78-5.38) K/mm3 Lymph # (Auto) (1.32-3.57) K/mm3 Archer # (Auto) (0.30-0.82) K/mm3 Eos # (Auto) (0.04-0.54) K/mm3 Baso # (Auto) (0.01-0.08) K/mm3 PT 20.2 H D (9.7-12.0) SECONDS INR 1.91 Sodium 143 (136-145) mEq/L Potassium 4.7 (3.5-5.1) mEq/L Chloride 107 (98-107) mEq/L Carbon Dioxide 26 (21-32) mEq/L Anion Gap 14.7 (5-15) BUN 28 H (7-18) mg/dL Creatinine 1.5 H (0.7-1.3) mg/dL Est Cr Clr Drug Dosing 48.86 mL/min Estimated GFR (MDRD) 46 (>60) mL/min BUN/Creatinine Ratio 18.7 H (14-18) Glucose 106 H (70-99) mg/dL Calcium 8.8 (8.5-10.1) mg/dL Magnesium (1.8-2.4) mg/dL Total Bilirubin 1.0 (0.2-1.0) mg/dL AST 26 (15-37) U/L ALT 36 (16-63) U/L Alkaline Phosphatase 66 (46-116) U/L CK-MB (CK-2) (0-3.6) ng/ml Troponin I (0.00-0.056) ng/mL C-Reactive Protein (<1.0) mg/dL NT-Pro-B Natriuret Pep (0-125) pg/mL Total Protein 6.9 (6.4-8.2) g/dl Albumin 3.4 (3.4-5.0) g/dl Globulin 3.5 gm/dL Albumin/Globulin Ratio 1.0 (1-2) Urine Color (Yellow) Urine Appearance (Clear) Urine pH (5.0-8.0) Ur Specific Oto (1.005-1.030) Urine Protein (Negative) Urine Glucose (UA) (Negative) Urine Ketones (Negative) Urine Occult Blood (Negative) Urine Nitrite (Negative) Urine Bilirubin (Negative) Urine Urobilinogen (0.2-1.0) Ur Leukocyte Esterase (Negative) Urine RBC (0-5) /hpf Urine WBC (0-5) /hpf Ur Epithelial Cells (0-5) /hpf Urine Bacteria (FEW) /hpf Urine Mucus (FEW) /hpf SARS-CoV-2 RNA (BEBETO) Negative (NEGATIVE) 06/29/21 06/29/21 06/29/21 Range/Units 14:25 17:08 17:08 WBC (4.23-9.07) K/mm3 RBC (4.63-6.08) M/mm3 Hgb (13.7-17.5) gm/dl Hct (40.1-51.0) % MCV (79.0-92.2) fl MCH (25.7-32.2) pg MCHC (32.2-35.5) g/dl RDW Std Deviation (35.1-43.9) fL Plt Count (163-337) K/mm3 MPV (9.4-12.3) fl Neut % (Auto) (34.0-67.9) % Lymph % (Auto) (21.8-53.1) % Archer % (Auto) (5.3-12.2) % Eos % (Auto) (0.8-7.0) Baso % (Auto) (0.1-1.2) % Neut # (Auto) (1.78-5.38) K/mm3 Lymph # (Auto) (1.32-3.57) K/mm3 Archer # (Auto) (0.30-0.82) K/mm3 Eos # (Auto) (0.04-0.54) K/mm3 Baso # (Auto) (0.01-0.08) K/mm3 PT (9.7-12.0) SECONDS INR Sodium (136-145) mEq/L Potassium (3.5-5.1) mEq/L Chloride (98-107) mEq/L Carbon Dioxide (21-32) mEq/L Anion Gap (5-15) BUN (7-18) mg/dL Creatinine (0.7-1.3) mg/dL Est Cr Clr Drug Dosing mL/min Estimated GFR (MDRD) (>60) mL/min BUN/Creatinine Ratio (14-18) Glucose (70-99) mg/dL Calcium (8.5-10.1) mg/dL Magnesium (1.8-2.4) mg/dL Total Bilirubin (0.2-1.0) mg/dL AST (15-37) U/L ALT (16-63) U/L Alkaline Phosphatase (46-116) U/L CK-MB (CK-2) 34.0 H (0-3.6) ng/ml Troponin I 0.066 H* (0.00-0.056) ng/mL C-Reactive Protein (<1.0) mg/dL NT-Pro-B Natriuret Pep (0-125) pg/mL Total Protein (6.4-8.2) g/dl Albumin (3.4-5.0) g/dl Globulin gm/dL Albumin/Globulin Ratio (1-2) Urine Color Light yellow (Yellow) Urine Appearance Clear (Clear) Urine pH 6.5 (5.0-8.0) Ur Specific Oto 1.020 (1.005-1.030) Urine Protein Negative (Negative) Urine Glucose (UA) Negative (Negative) Urine Ketones Negative (Negative) Urine Occult Blood Negative (Negative) Urine Nitrite Negative (Negative) Urine Bilirubin Negative (Negative) Urine Urobilinogen 0.2 (0.2-1.0) Ur Leukocyte Esterase Negative (Negative) Urine RBC 0-5 (0-5) /hpf Urine WBC Not seen (0-5) /hpf Ur Epithelial Cells Not seen (0-5) /hpf Urine Bacteria Rare (FEW) /hpf Urine Mucus Not seen (FEW) /hpf SARS-CoV-2 RNA (BEBETO) (NEGATIVE) 06/30/21 06/30/21 06/30/21 Range/Units 04:40 04:40 04:40 WBC 8.00 (4.23-9.07) K/mm3 RBC 5.23 (4.63-6.08) M/mm3 Hgb 15.3 (13.7-17.5) gm/dl Hct 49.3 (40.1-51.0) % MCV 94.3 H (79.0-92.2) fl MCH 29.3 (25.7-32.2) pg MCHC 31.0 L (32.2-35.5) g/dl RDW Std Deviation 52.2 H (35.1-43.9) fL Plt Count 136 L (163-337) K/mm3 MPV 10.4 (9.4-12.3) fl Neut % (Auto) 62.2 (34.0-67.9) % Lymph % (Auto) 18.5 L (21.8-53.1) % Archer % (Auto) 14.3 H (5.3-12.2) % Eos % (Auto) 4.1 (0.8-7.0) Baso % (Auto) 0.5 (0.1-1.2) % Neut # (Auto) 4.98 (1.78-5.38) K/mm3 Lymph # (Auto) 1.48 (1.32-3.57) K/mm3 Archer # (Auto) 1.14 H (0.30-0.82) K/mm3 Eos # (Auto) 0.33 (0.04-0.54) K/mm3 Baso # (Auto) 0.04 (0.01-0.08) K/mm3 PT 19.3 H (9.7-12.0) SECONDS INR 1.83 Sodium 143 (136-145) mEq/L Potassium 3.9 (3.5-5.1) mEq/L Chloride 106 (98-107) mEq/L Carbon Dioxide 30 (21-32) mEq/L Anion Gap 10.9 (5-15) BUN 31 H (7-18) mg/dL Creatinine 1.6 H (0.7-1.3) mg/dL Est Cr Clr Drug Dosing 45.81 mL/min Estimated GFR (MDRD) 43 (>60) mL/min BUN/Creatinine Ratio 19.4 H (14-18) Glucose 107 H (70-99) mg/dL Calcium 8.3 L (8.5-10.1) mg/dL Magnesium 1.9 (1.8-2.4) mg/dL Total Bilirubin 0.9 (0.2-1.0) mg/dL AST 22 (15-37) U/L ALT 34 (16-63) U/L Alkaline Phosphatase 64 (46-116) U/L CK-MB (CK-2) (0-3.6) ng/ml Troponin I (0.00-0.056) ng/mL C-Reactive Protein (<1.0) mg/dL NT-Pro-B Natriuret Pep (0-125) pg/mL Total Protein 6.9 (6.4-8.2) g/dl Albumin 3.2 L (3.4-5.0) g/dl Globulin 3.7 gm/dL Albumin/Globulin Ratio 0.9 L (1-2) Urine Color (Yellow) Urine Appearance (Clear) Urine pH (5.0-8.0) Ur Specific Oto (1.005-1.030) Urine Protein (Negative) Urine Glucose (UA) (Negative) Urine Ketones (Negative) Urine Occult Blood (Negative) Urine Nitrite (Negative) Urine Bilirubin (Negative) Urine Urobilinogen (0.2-1.0) Ur Leukocyte Esterase (Negative) Urine RBC (0-5) /hpf Urine WBC (0-5) /hpf Ur Epithelial Cells (0-5) /hpf Urine Bacteria (FEW) /hpf Urine Mucus (FEW) /hpf SARS-CoV-2 RNA (BEBETO) (NEGATIVE) Result Diagrams: 06/30/21 04:40 06/30/21 04:40 Sepsis Event Note - Evaluation Sepsis Screening Result: No Definite Risk - Focused Exam Vital Signs: Vital Signs Temp Pulse Resp BP BP Pulse Ox Pulse Ox 06/30/21 05:00 95 06/30/21 04:00 36.2 C 16 142/65 H 93 L 06/30/21 03:00 96 06/30/21 02:00 94 L 06/30/21 01:00 94 L 06/30/21 00:00 36.3 C 16 123/64 94 L 06/29/21 23:00 94 L 06/29/21 21:33 95 06/29/21 21:00 92 L 06/29/21 20:28 70 130/62 06/29/21 20:26 36.3 C 16 130/62 95 - Problem List & Annotations (1) Acute exacerbation of CHF (congestive heart failure) SNOMED Code(s): 953728722, 69833128900814 Code(s): I50.9 - HEART FAILURE, UNSPECIFIED Status: Acute Priority: High Current Visit: Yes Qualifiers: Heart failure type: diastolic Qualified Code(s): I50.33 - Acute on chronic diastolic (congestive) heart failure (2) Weakness SNOMED Code(s): 62206451 Code(s): R53.1 - WEAKNESS Status: Acute Priority: High Current Visit: Yes (3) Atrial fibrillation, chronic SNOMED Code(s): 957756596 Code(s): I48.20 - CHRONIC ATRIAL FIBRILLATION, UNSPECIFIED Status: Chronic Priority: Medium Current Visit: Yes (4) FTT (failure to thrive) in adult SNOMED Code(s): 938118511 Code(s): R62.7 - ADULT FAILURE TO THRIVE Status: Chronic Priority: High Current Visit: Yes - Problem List Review Problem List Initiated/Reviewed/Updated: Yes - My Orders Last 24 Hours: My Active Orders 06/30/21 04:40 TROPONIN I [CHEM] Routine - Assessment Assessment:: The patient is a 71-year-old gentleman who has a number of chronic conditions. The patient is currently awaiting placement in rehab facility and or nursing home facility.The patient will continue with the diuresis of 40 mg Lasix IV twice daily. Daily weights will continue to be monitored. SAYRA's will also be monitored. The patient's troponin is elevated but has been plateaued and this is likely secondary to his CHF exacerbation as well as depressed renal function. Repeat laboratory studies have been ordered for the patient. This is to mon itor the patient's renal function. The patient's warfarin has been held. He is currently on Plavix.The patient's heart healthy diet with fluid restriction will also be continued. Oxygen therapy will be tapered to keep the patient on room air with saturations if necessary around 92 to 94%. The patient will likely need extensive rehabilitation and or nursing home facility. - Plan Plan:: Assessment- day of admission 06/29/2021 * 71-year-old male who presents to ED via [facility] from home with chest heaviness and dyspnea on minimal exertion that have been ongoing for about a week. * History of A. fib, AICD, heart failure, hypertension, carotid and endarterectomy, left carotid artery stenting, COPD, recurrent pneumonia, pneumothorax, urinary incontinence, arthritis, CVA with residual left hemiplegia, depression, bladder cancer. * Last seen in the ED on June 15 due to incarcerated small hernia which was reduced and he has had no problems since. * During that visit he was given extra dose of Lasix and his home dose was increased with an extra 20 mg in the evening for 5 days. He was also increased to 40 mg in the morning. He had prior been on 20 mg of Lasix in the morning. * Recently had his implanted cardiac defibrillator/pacemaker switched from his left upper chest to his right upper chest due to an infection. * Reports a minimal nonproductive cough * Was in [facility] in September due to Covid symptoms and was hospitalized for 3 weeks * Has been in and out of the [facility] since then. * Has chronic atrial fibrillation and dependent edema which is worse on the left side * On Coumadin and his dosing was changed 2 weeks ago. INR was checked a few days ago and it was normal at 2.2. * 12-lead EKG was obtained showing an atrial paced rhythm at 70 bpm with right axis deviation. There are small Q waves in V1 and a prominent R wave is noted in V1 as well. Q waves in inferior leads. T wave inversion from V2 through V6 and inferior leads. T wave flattening is noted in lead I. QT segment is moderately prolonged. No real change from EKG on June 15. * Labs are obtained * WBC of 7.84. * Hemoglobin 15.3. * Hematocrit 49.4. * He is macrocytic. * Platelets 113,000. * Neutrophils are elevated at 68.8. * Magnesium is 2.0. * CK-MB is 2.4. * Troponin 0 0.092. * CRP is 3.9. * proBNP is 13,499. * INR is 1.91. * Sodium 143. * Potassium 4.7. * Chloride 107. * Carbon dioxide 26. * Anion gap 14.7. * BUN is 28. Creatinine 1.5. GFR is 46. * Glucose 106. * Calcium 8.8. * Total bilirubin 1.0. * AST is 26, ALT 36, alkaline phosphatase 66. * Protein is 6.9. * Albumin is 3.4. * SARS-CoV-2 RNA is negative. * UA is negative. * Chest x-ray is obtained showing cardiomegaly with an AICD and other incidental findings. * He is given 40 mg IV push Lasix and is subsequently admitted to the ICU as a medical floor overflow for CHF exacerbation. PLAN: Acute exacerbation of CHF (congestive heart failure) Atrial fibrillation, chronic Presence of combination internal cardiac defibrillator (ICD) and pacemaker Elevated troponin Elevated brain natriuretic peptide (BNP) level * Heart healthy (low sodium) diet * 1.5L fluid restriction * Telemetry * Hold home lasix * 40mg BID lasix IVP * Monitor electrolytes * Strict I&O * Daily weights * Re-check troponin today and CKMB at 1700 to ensure stability; Trend as needed * Echocardiogram ordered * Jump Roll Operator consultation * Continue home warfarin with pharmacy to dose * Daily INR FTT (failure to thrive) in adult Weakness History of CVA with residual deficit Left hemiplegia Arthritis * PT/OT evaluation * CM/SW * Patient and would like SNF placement * Aspiration precautions * Fall precautions HTN (hypertension) * Lasix as above with no other BP meds * Monitor vital signs History of carotid endarterectomy History of left common carotid artery stent placement * Continue home plavix * Continue warfarin with pharmacy to dose * No acute concerns * Daily INR COPD (chronic obstructive pulmonary disease) H/O recurrent pneumonia History of pneumothorax * No acute concerns * No home chronic respiratory meds * PRN DuoNebs * Monitor vital signs Urinary incontinence History of bladder cancer * Frequent brief changes * Consider condom catheter * Anticipate increased urinary output with diuresing Depression * No acute concerns * Continue home sertraline * Spiritual care consultation Code status DNR/DNI PCP: Dr. Wan from [facility] DVT prophylaxis: Continue home plavix and warfarin with pharmacy to dose Social: Patient resides with at home. He has been in and out of the [facility] multiple times. Both feel he will need SNF placement. Disposition: Patient mated to the floor for CHF exacerbation and monitoring of troponin. Likely discharge Friday to SNF.
[2021-06-30] MEDS: Carvedilol 12.5 MG Tab PO SCH ×2 (08:26→20:20)
[2021-06-30] MEDS: Potassium Chloride 20 MEQ Tab.ER PO SCH (08:27)
[2021-06-30] MEDS: Saccharomyces Boulardii (Probiotic) 250 MG Cap PO SCH (08:27)
[2021-06-30] MEDS: Cholecalciferol (Vitamin D3) 25 MCG Tab PO SCH (08:27)
[2021-06-30] MEDS: Clopidogrel 75 MG Tab PO SCH (08:27)
[2021-06-30] MEDS: Sertraline 50 MG Tab PO SCH (08:28)
[2021-06-30] MEDS ORDERED: Warfarin 4 MG Tab PO ONE (18:00)
[2021-07-01] MEDS: Furosemide 40 MG/4 ML VIAL IVPUSH SCH ×2 (06:30→13:19)
[2021-07-01] MEDS: Acetaminophen 325 MG Tab PO PRN ×2 (07:19→20:29)
[2021-07-01] MEDS: Sertraline 50 MG Tab PO SCH (08:41)
[2021-07-01] MEDS: Potassium Chloride 20 MEQ Tab.ER PO SCH (08:41)
[2021-07-01] MEDS: Clopidogrel 75 MG Tab PO SCH (08:41)
[2021-07-01] MEDS: Carvedilol 12.5 MG Tab PO SCH ×2 (08:42→20:29)
[2021-07-01] MEDS: Saccharomyces Boulardii (Probiotic) 250 MG Cap PO SCH (08:42)
[2021-07-01] MEDS: Cholecalciferol (Vitamin D3) 25 MCG Tab PO SCH (08:42)
--- NOTE | 2021-07-01 08:51 | PCM.PN ---
- General Info Date of Service: 07/01/21 Admission Dx/Problem (Free Text): Admission Diagnosis/Problem Admission Diagnosis/Problem Congestive heart failure Subjective Update: The patient is a 71-year-old gentleman who was admitted through the emergency department on June 29, 2021 due to chest heaviness and dyspnea. The patient was diagnosed with congestive heart failure and had been discharged from rehabilitation prior to presentation. Today the patient has been diuresed and he says that he feels better. He has been able to breathe better. The patient says that he has been tolerating his diet. Patient has denied any pain. Functional Status: Reports: Pain Controlled, Tolerating Diet - Review of Systems General: Reports: Weakness HEENT: Reports: No Symptoms Pulmonary: Reports: No Symptoms Cardiovascular: Reports: Edema Gastrointestinal: Reports: No Symptoms Genitourinary: Reports: No Symptoms Musculoskeletal: Reports: No Symptoms Skin: Reports: No Symptoms Neurological: Reports: Numbness, Pre-Existing Deficit, Difficulty Walking (Left- sided hemiparesis due to old stroke), Weakness Psychiatric: Reports: No Symptoms - Patient Data Vitals - Most Recent: Last Vital Signs Temp 36.1 C 07/01/21 08:11 Pulse 74 07/01/21 08:42 Resp 20 07/01/21 08:11 BP 134/74 07/01/21 08:42 Pulse Ox 94 L 07/01/21 08:11 Weight - Most Recent: 88.451 kg I&O - Last 24 Hours: Intake & Output 06/30/21 07/01/21 07/01/21 22:59 06:59 14:59 Intake Total 310 200 Output Total 1425 500 100 Balance -1115 -300 -100 Lab Results Last 24 Hours: Laboratory Results - last 24 hr 07/01/21 07/01/21 07/01/21 Range/Units 04:45 04:45 04:45 WBC 7.68 (4.23-9.07) K/mm3 RBC 5.39 (4.63-6.08) M/mm3 Hgb 15.7 (13.7-17.5) gm/dl Hct 51.2 H (40.1-51.0) % MCV 95.0 H (79.0-92.2) fl MCH 29.1 (25.7-32.2) pg MCHC 30.7 L (32.2-35.5) g/dl RDW Std Deviation 51.9 H (35.1-43.9) fL Plt Count 155 L (163-337) K/mm3 MPV 10.4 (9.4-12.3) fl Neut % (Auto) 62.0 (34.0-67.9) % Lymph % (Auto) 18.6 L (21.8-53.1) % [place] % (Auto) 13.3 H (5.3-12.2) % Eos % (Auto) 5.3 (0.8-7.0) Baso % (Auto) 0.4 (0.1-1.2) % Neut # (Auto) 4.76 (1.78-5.38) K/mm3 Lymph # (Auto) 1.43 (1.32-3.57) K/mm3 [place] # (Auto) 1.02 H (0.30-0.82) K/mm3 Eos # (Auto) 0.41 (0.04-0.54) K/mm3 Baso # (Auto) 0.03 (0.01-0.08) K/mm3 PT 19.5 H (9.7-12.0) SECONDS INR 1.84 Sodium 144 (136-145) mEq/L Potassium 3.6 (3.5-5.1) mEq/L Chloride 104 (98-107) mEq/L Carbon Dioxide 32 (21-32) mEq/L Anion Gap 11.6 (5-15) BUN 47 H (7-18) mg/dL Creatinine 1.5 H (0.7-1.3) mg/dL Est Cr Clr Drug Dosing 48.86 mL/min Estimated GFR (MDRD) 46 (>60) mL/min BUN/Creatinine Ratio 31.3 H (14-18) Glucose 111 H (70-99) mg/dL Calcium 8.5 (8.5-10.1) mg/dL Magnesium 1.9 (1.8-2.4) mg/dL Total Bilirubin 1.0 (0.2-1.0) mg/dL AST 22 (15-37) U/L ALT 31 (16-63) U/L Alkaline Phosphatase 70 (46-116) U/L Total Protein 7.0 (6.4-8.2) g/dl Albumin 3.3 L (3.4-5.0) g/dl Globulin 3.7 gm/dL Albumin/Globulin Ratio 0.9 L (1-2) Med Orders - Current: Current Medications Acetaminophen (Acetaminophen 325 Mg Tab) 650 mg PO Q4H PRN PRN Reason: Pain (Mild 1-3)/fever Last Admin: 07/01/21 07:19 Dose: 650 mg Documented by: Albuterol/Ipratropium (Albuterol/Ipratropium 3.0-0.5 Mg/3 Ml Neb Soln) 3 ml NEB QIDRT PRN PRN Reason: wheezing/SOB/cough Carvedilol (Carvedilol 12.5 Mg Tab) 25 mg PO BID [facility] Last Admin: 07/01/21 08:42 Dose: 25 mg Documented by: Cholecalciferol (Cholecalciferol (Vitamin D3) 25 Mcg Tab) 50 mcg PO DAILY [facility] Last Admin: 07/01/21 08:42 Dose: 50 mcg Documented by: Clopidogrel Bisulfate (Clopidogrel 75 Mg Tab) 75 mg PO DAILY [facility] Last Admin: 07/01/21 08:41 Dose: 75 mg Documented by: Docusate Sodium (Docusate Sodium 100 Mg Cap) 100 mg PO Q12H PRN PRN Reason: Constipation Furosemide (Furosemide 40 Mg/4 Ml Vial) 40 mg IVPUSH BIDDIURETIC [facility] Last Admin: 07/01/21 06:30 Dose: 40 mg Documented by: Ondansetron HCl (Ondansetron 4 Mg/2 Ml Sdv) 4 mg IV Q6H PRN PRN Reason: Nausea/Vomiting Potassium Chloride (Potassium Chloride 20 Meq Tab.Er) 20 meq PO DAILY [facility] Last Admin: 07/01/21 08:41 Dose: 20 meq Documented by: Saccharomyces Boulardii (Saccharomyces Boulardii (Probiotic) 250 Mg Cap) 250 mg PO DAILY [facility] Last Admin: 07/01/21 08:42 Dose: 250 mg Documented by: Senna/Docusate Sodium (Docusate Sodium/Sennosides 50-8.6 Mg Tab) 2 tab PO DAILY PRN PRN Reason: Constipation Last Admin: 07/01/21 08:42 Dose: 2 tab Documented by: Sertraline HCl (Sertraline 50 Mg Tab) 50 mg PO DAILY [facility] Last Admin: 07/01/21 08:41 Dose: 50 mg Documented by: Sodium Chloride (Sodium Chloride 0.9% 10 Ml Syringe) 10 ml FLUSH ASDIRECTED PRN PRN Reason: Keep Vein Open Last Admin: 06/29/21 20:29 Dose: 10 ml Documented by: Warfarin Sodium (Pharmacy To Dose - Warfarin) 0 dose .XX ASDIRECTED PRN PRN Reason: RX TO DOSE COUMADIN Discontinued Medications Furosemide (Furosemide 40 Mg/4 Ml Vial) 40 mg IVPUSH NOW ONE Stop: 06/29/21 10:31 Last Admin: 06/29/21 11:32 Dose: 40 mg Documented by: Furosemide (Furosemide 40 Mg/4 Ml Vial) 40 mg IVPUSH NOW ONE Stop: 06/29/21 15:01 Furosemide (Furosemide 40 Mg/4 Ml Vial) 40 mg IVPUSH NOW ONE Stop: 06/29/21 16:31 Last Admin: 06/29/21 17:20 Dose: 40 mg Documented by: Warfarin Sodium (Warfarin 4 Mg Tab) 4 mg PO QPM KENDRICK Stop: 06/29/21 21:00 Last Admin: 06/29/21 17:20 Dose: 4 mg Documented by: Warfarin Sodium (Warfarin 4 Mg Tab) 4 mg PO ONETIME ONE Stop: 06/30/21 18:01 Last Admin: 06/30/21 17:09 Dose: 4 mg Documented by: - Exam Quality Assessment: Supplemental Oxygen, DVT Prophylaxis General: Alert, Oriented, Cooperative, No Acute Distress HEENT: Pupils Equal, Pupils Reactive, EOMI, Mucous Membr. Moist/[place] Neck: Supple Lungs: Clear to Auscultation, Normal Respiratory Effort Cardiovascular: Regular Rate, Regular Rhythm (Paced rhythm) GI/Abdominal Exam: Normal Bowel Sounds, Soft, No Distention (Male) Exam: Deferred Back Exam: No: Normal Inspection (Patient has left-sided hemiparesis), Full Range of Motion Extremities: No: Normal Inspection (Left-sided hemiparesis), Normal Range of Motion Skin: Warm, Dry, Intact Neurological: No New Focal Deficit Psy/Mental Status: Alert, Normal Affect, Normal Mood - Patient Data Lab Results Last 24 hrs: Laboratory Results - last 24 hr 07/01/21 07/01/21 07/01/21 Range/Units 04:45 04:45 04:45 WBC 7.68 (4.23-9.07) K/mm3 RBC 5.39 (4.63-6.08) M/mm3 Hgb 15.7 (13.7-17.5) gm/dl Hct 51.2 H (40.1-51.0) % MCV 95.0 H (79.0-92.2) fl MCH 29.1 (25.7-32.2) pg MCHC 30.7 L (32.2-35.5) g/dl RDW Std Deviation 51.9 H (35.1-43.9) fL Plt Count 155 L (163-337) K/mm3 MPV 10.4 (9.4-12.3) fl Neut % (Auto) 62.0 (34.0-67.9) % Lymph % (Auto) 18.6 L (21.8-53.1) % [place] % (Auto) 13.3 H (5.3-12.2) % Eos % (Auto) 5.3 (0.8-7.0) Baso % (Auto) 0.4 (0.1-1.2) % Neut # (Auto) 4.76 (1.78-5.38) K/mm3 Lymph # (Auto) 1.43 (1.32-3.57) K/mm3 [place] # (Auto) 1.02 H (0.30-0.82) K/mm3 Eos # (Auto) 0.41 (0.04-0.54) K/mm3 Baso # (Auto) 0.03 (0.01-0.08) K/mm3 PT 19.5 H (9.7-12.0) SECONDS INR 1.84 Sodium 144 (136-145) mEq/L Potassium 3.6 (3.5-5.1) mEq/L Chloride 104 (98-107) mEq/L Carbon Dioxide 32 (21-32) mEq/L Anion Gap 11.6 (5-15) BUN 47 H (7-18) mg/dL Creatinine 1.5 H (0.7-1.3) mg/dL Est Cr Clr Drug Dosing 48.86 mL/min Estimated GFR (MDRD) 46 (>60) mL/min BUN/Creatinine Ratio 31.3 H (14-18) Glucose 111 H (70-99) mg/dL Calcium 8.5 (8.5-10.1) mg/dL Magnesium 1.9 (1.8-2.4) mg/dL Total Bilirubin 1.0 (0.2-1.0) mg/dL AST 22 (15-37) U/L ALT 31 (16-63) U/L Alkaline Phosphatase 70 (46-116) U/L Total Protein 7.0 (6.4-8.2) g/dl Albumin 3.3 L (3.4-5.0) g/dl Globulin 3.7 gm/dL Albumin/Globulin Ratio 0.9 L (1-2) Result Diagrams: 07/01/21 04:45 07/01/21 04:45 Sepsis Event Note - Evaluation Sepsis Screening Result: No Definite Risk - Focused Exam Vital Signs: Vital Signs Temp Pulse Resp BP BP Pulse Ox 07/01/21 08:42 74 134/74 07/01/21 08:11 36.1 C 20 134/74 134/74 93 L 07/01/21 08:10 95 07/01/21 08:00 94 L 07/01/21 07:00 93 L 07/01/21 06:00 96 07/01/21 05:00 94 L 07/01/21 04:00 36.2 C 20 145/65 H 93 L 07/01/21 03:00 96 07/01/21 02:00 96 07/01/21 01:00 95 07/01/21 00:00 36.2 C 16 130/75 94 L 06/30/21 23:00 94 L 06/30/21 22:00 95 06/30/21 21:14 93 L - Problem List & Annotations (1) Acute exacerbation of CHF (congestive heart failure) SNOMED Code(s): 690500365, 76613535937548 Code(s): I50.9 - HEART FAILURE, UNSPECIFIED Status: Chronic Priority: High Current Visit: Yes Qualifiers: Heart failure type: diastolic Qualified Code(s): I50.33 - Acute on chronic diastolic (congestive) heart failure (2) Weakness SNOMED Code(s): 35907039 Code(s): R53.1 - WEAKNESS Status: Acute Priority: High Current Visit: Yes (3) Atrial fibrillation, chronic SNOMED Code(s): 670394759 Code(s): I48.20 - CHRONIC ATRIAL FIBRILLATION, UNSPECIFIED Status: Chronic Priority: Medium Current Visit: Yes (4) FTT (failure to thrive) in adult SNOMED Code(s): 291685152 Code(s): R62.7 - ADULT FAILURE TO THRIVE Status: Chronic Priority: High Current Visit: Yes - Problem List Review Problem List Initiated/Reviewed/Updated: Yes - My Orders Last 24 Hours: My Active Orders 07/01/21 07:01 PRO B-TYPE NATRIUR PEPT,BNPPRO [CHEM] Routine - Assessment Assessment:: The patient is a 71-year-old gentleman who has a number of chronic conditions. The patient is currently awaiting placement in rehab facility and or group home facility.The patient will continue with the diuresis of 40 mg Lasix IV twice daily. Daily weights will continue to be monitored. SAYRA's will also be monitored. The patient's troponin is elevated but has been plateaued and this is likely secondary to his CHF exacerbation as well as depressed renal function. Repeat laboratory studies have been ordered for the patient. This is to monitor the patient's renal function. The patient's warfarin has been held. He is currently on Plavix.The patient's heart healthy diet with fluid restriction will also be continued. Oxygen therapy will be tapered to keep the patient on room air with saturations if necessary around 92 to 94%. The patient will likely need extensive rehabilitation and or group home facility. 07/01/2021 The patient is a 71-year-old gentleman who will be kept in hospitalization secondary to awaiting placement. Patient has chronic medical conditions along with left-sided spastic hemiparesis which is interfering with his ability to care for himself. Continue Lasix 40 mg IV twice daily. Daily weights will be monitored. The patient's input and output will be monitored. I also ordered repeat B-type natriuretic peptide. The patient does have depressed renal function and repeat laboratory studies have been ordered for this. The patient's previous warfarin had been held but this has been restarted due to his high risk of another stroke with his atrial fibrillation and pacemaker placement. Oxygen therapy continues as needed to keep his saturations around 92%. Physical therapy was ordered. The patient should be appropriate for discharge to group home facility 1 to 2 days. - Plan Plan:: Assessment- day of admission 06/29/2021 * 71-year-old male who presents to ED via [facility] from home with chest heaviness and dyspnea on minimal exertion that have been ongoing for about a week. * History of A. fib, AICD, heart failure, hypertension, carotid and endarterectomy, left carotid artery stenting, COPD, recurrent pneumonia, pneumothorax, urinary incontinence, arthritis, CVA with residual left hemiplegia, depression, bladder cancer. * Last seen in the ED on June 15 due to incarcerated small hernia which was reduced and he has had no problems since. * During that visit he was given extra dose of Lasix and his home dose was increased with an extra 20 mg in the evening for 5 days. He was also incre ased to 40 mg in the morning. He had prior been on 20 mg of Lasix in the morning. * Recently had his implanted cardiac defibrillator/pacemaker switched from his left upper chest to his right upper chest due to an infection. * Reports a minimal nonproductive cough * Was in [facility] in September due to Covid symptoms and was hospitalized for 3 weeks * Has been in and out of the residential since then. * Has chronic atrial fibrillation and dependent edema which is worse on the left side * On Coumadin and his dosing was changed 2 weeks ago. INR was checked a few days ago and it was normal at 2.2. * 12-lead EKG was obtained showing an atrial paced rhythm at 70 bpm with right axis deviation. There are small Q waves in V1 and a prominent R wave is noted in V1 as well. Q waves in inferior leads. T wave inversion from V2 through V6 and inferior leads. T wave flattening is noted in lead I. QT segment is moderately prolonged. No real change from EKG on June 15. * Labs are obtained * WBC of 7.84. * Hemoglobin 15.3. * Hematocrit 49.4. * He is macrocytic. * Platelets 113,000. * Neutrophils are elevated at 68.8. * Magnesium is 2.0. * CK-MB is 2.4. * Troponin 0 0.092. * CRP is 3.9. * proBNP is 13,499. * INR is 1.91. * Sodium 143. * Potassium 4.7. * Chloride 107. * Carbon dioxide 26. * Anion gap 14.7. * BUN is 28. Creatinine 1.5. GFR is 46. * Glucose 106. * Calcium 8.8. * Total bilirubin 1.0. * AST is 26, ALT 36, alkaline phosphatase 66. * Protein is 6.9. * Albumin is 3.4. * SARS-CoV-2 RNA is negative. * UA is negative. * Chest x-ray is obtained showing cardiomegaly with an AICD and other incidental findings. * He is given 40 mg IV push Lasix and is subsequently admitted to the ICU as a medical floor overflow for CHF exacerbation. PLAN: Acute exacerbation of CHF (congestive heart failure) Atrial fibrillation, chronic Presence of combination internal cardiac defibrillator (ICD) and pacemaker Elevated troponin Elevated brain natriuretic peptide (BNP) level * Heart healthy (low sodium) diet * 1.5L fluid restriction * Telemetry * Hold home lasix * 40mg BID lasix IVP * Monitor electrolytes * Strict I&O * Daily weights * Re-check troponin today and CKMB at 1700 to ensure stability; Trend as needed * Echocardiogram ordered * Coremaker Experimental consultation * Continue home warfarin with pharmacy to dose * Daily INR FTT (failure to thrive) in adult Weakness History of CVA with residual deficit Left hemiplegia Arthritis * PT/OT evaluation * CM/SW * Patient and would like SNF placement * Aspiration precautions * Fall precautions HTN (hypertension) * Lasix as above with no other BP meds * Monitor vital signs History of carotid endarterectomy History of left common carotid artery stent placement * Continue home plavix * Continue warfarin with pharmacy to dose * No acute concerns * Daily INR COPD (chronic obstructive pulmonary disease) H/O recurrent pneumonia History of pneumothorax * No acute concerns * No home chronic respiratory meds * PRN DuoNebs * Monitor vital signs Urinary incontinence History of bladder cancer * Frequent brief changes * Consider condom catheter * Anticipate increased urinary output with diuresing Depression * No acute concerns * Continue home sertraline * Spiritual care consultation Code status DNR/DNI PCP: Dr. Wan from [facility] DVT prophylaxis: Continue home plavix and warfarin with pharmacy to dose Social: Patient resides with at home. He has been in and out of the residential multiple times. Both feel he will need SNF placement. Disposition: Patient mated to the floor for CHF exacerbation and monitoring of troponin. Likely discharge Friday to SNF.
[2021-07-01] MEDS ORDERED: Warfarin 4 MG Tab PO ONE (18:00)
[2021-07-02] MEDS: Furosemide 40 MG/4 ML VIAL IVPUSH SCH ×2 (06:24→13:49)
--- NOTE | 2021-07-02 07:03 | PCM.PN ---
- General Info Date of Service: 07/02/21 Admission Dx/Problem (Free Text): Admission Diagnosis/Problem Admission Diagnosis/Problem Congestive heart failure Subjective Update: The patient is a 71-year-old gentleman who has been admitted to acute hospitalization on June 29, 2021 due to worsening congestive heart failure. The patient's initial B-type natriuretic peptide was around 13,000. The patient has been placed on fluid restriction and has been diuresed. Overall, the patient says that he may want to end any further treatment. The patient has been chronically ill with previous stroke and has dense left-sided spastic hemiparesis. In addition to the heart failure the patient also has cardiac disease and is currently in a paced rhythm. The patient had been previously hospitalized with pneumonia due to COVID-19 and also has a history of chronic pneumonia. The patient has had surgery for carotid endarterectomy and currently has a carotid artery stent. Also, the patient has been ambulating the last due to severe arthritis of his right knee. Patient has no other complaints at this time. Functional Status: Reports: Pain Controlled - Review of Systems General: Reports: No Symptoms HEENT: Reports: No Symptoms Pulmonary: Reports: No Symptoms Cardiovascular: Reports: No Symptoms Gastrointestinal: Reports: No Symptoms Genitourinary: Reports: No Symptoms Musculoskeletal: Reports: No Symptoms Skin: Reports: No Symptoms Neurological: Reports: Pre-Existing Deficit Psychiatric: Reports: Depression - Patient Data Vitals - Most Recent: Last Vital Signs Temp 36.2 C 07/02/21 04:16 Pulse 76 07/01/21 20:29 Resp 16 07/02/21 04:16 BP 128/79 07/02/21 04:16 Pulse Ox 90 L 07/02/21 06:46 Weight - Most Recent: 88.813 kg I&O - Last 24 Hours: Intake & Output 07/01/21 07/02/21 07/02/21 22:59 06:59 14:59 Intake Total 410 200 Output Total 1250 100 Balance -840 100 Lab Results Last 24 Hours: Laboratory Results - last 24 hr 07/01/21 07/01/21 07/02/21 Range/Units 04:45 10:27 05:04 WBC 8.52 (4.23-9.07) K/mm3 RBC 5.76 (4.63-6.08) M/mm3 Hgb 16.7 (13.7-17.5) gm/dl Hct 54.9 H (40.1-51.0) % MCV 95.3 H (79.0-92.2) fl MCH 29.0 (25.7-32.2) pg MCHC 30.4 L (32.2-35.5) g/dl RDW Std Deviation 54.0 H (35.1-43.9) fL Plt Count 158 L (163-337) K/mm3 MPV 10.4 (9.4-12.3) fl Neut % (Auto) 59.7 (34.0-67.9) % Lymph % (Auto) 20.1 L (21.8-53.1) % [place] % (Auto) 13.3 H (5.3-12.2) % Eos % (Auto) 5.8 (0.8-7.0) Baso % (Auto) 0.5 (0.1-1.2) % Neut # (Auto) 5.10 (1.78-5.38) K/mm3 Lymph # (Auto) 1.71 (1.32-3.57) K/mm3 [place] # (Auto) 1.13 H (0.30-0.82) K/mm3 Eos # (Auto) 0.49 (0.04-0.54) K/mm3 Baso # (Auto) 0.04 (0.01-0.08) K/mm3 PT 19.5 H (9.7-12.0) SECONDS INR 1.84 Sodium (136-145) mEq/L Potassium (3.5-5.1) mEq/L Chloride (98-107) mEq/L Carbon Dioxide (21-32) mEq/L Anion Gap (5-15) BUN (7-18) mg/dL Creatinine (0.7-1.3) mg/dL Est Cr Clr Drug Dosing mL/min Estimated GFR (MDRD) (>60) mL/min BUN/Creatinine Ratio (14-18) Glucose (70-99) mg/dL Calcium (8.5-10.1) mg/dL Magnesium (1.8-2.4) mg/dL Total Bilirubin (0.2-1.0) mg/dL AST (15-37) U/L ALT (16-63) U/L Alkaline Phosphatase (46-116) U/L NT-Pro-B Natriuret Pep 2124 H (0-125) pg/mL Total Protein (6.4-8.2) g/dl Albumin (3.4-5.0) g/dl Globulin gm/dL Albumin/Globulin Ratio (1-2) 07/02/21 07/02/21 Range/Units 05:04 05:04 WBC (4.23-9.07) K/mm3 RBC (4.63-6.08) M/mm3 Hgb (13.7-17.5) gm/dl Hct (40.1-51.0) % MCV (79.0-92.2) fl MCH (25.7-32.2) pg MCHC (32.2-35.5) g/dl RDW Std Deviation (35.1-43.9) fL Plt Count (163-337) K/mm3 MPV (9.4-12.3) fl Neut % (Auto) (34.0-67.9) % Lymph % (Auto) (21.8-53.1) % [place] % (Auto) (5.3-12.2) % Eos % (Auto) (0.8-7.0) Baso % (Auto) (0.1-1.2) % Neut # (Auto) (1.78-5.38) K/mm3 Lymph # (Auto) (1.32-3.57) K/mm3 [place] # (Auto) (0.30-0.82) K/mm3 Eos # (Auto) (0.04-0.54) K/mm3 Baso # (Auto) (0.01-0.08) K/mm3 PT 20.3 H (9.7-12.0) SECONDS INR 1.92 Sodium 146 H (136-145) mEq/L Potassium 3.9 (3.5-5.1) mEq/L Chloride 106 (98-107) mEq/L Carbon Dioxide 30 (21-32) mEq/L Anion Gap 13.9 (5-15) BUN 64 H (7-18) mg/dL Creatinine 1.7 H (0.7-1.3) mg/dL Est Cr Clr Drug Dosing 43.11 mL/min Estimated GFR (MDRD) 40 (>60) mL/min BUN/Creatinine Ratio 37.6 H (14-18) Glucose 115 H (70-99) mg/dL Calcium 9.1 (8.5-10.1) mg/dL Magnesium 2.1 (1.8-2.4) mg/dL Total Bilirubin 1.0 (0.2-1.0) mg/dL AST 23 (15-37) U/L ALT 25 (16-63) U/L Alkaline Phosphatase 73 (46-116) U/L NT-Pro-B Natriuret Pep (0-125) pg/mL Total Protein 7.6 (6.4-8.2) g/dl Albumin 3.5 (3.4-5.0) g/dl Globulin 4.1 gm/dL Albumin/Globulin Ratio 0.9 L (1-2) Med Orders - Current: Current Medications Acetaminophen (Acetaminophen 325 Mg Tab) 650 mg PO Q4H PRN PRN Reason: Pain (Mild 1-3)/fever Last Admin: 07/01/21 20:29 Dose: 650 mg Documented by: Albuterol/Ipratropium (Albuterol/Ipratropium 3.0-0.5 Mg/3 Ml Neb Soln) 3 ml NEB QIDRT PRN PRN Reason: wheezing/SOB/cough Carvedilol (Carvedilol 12.5 Mg Tab) 25 mg PO BID [facility] Last Admin: 07/01/21 20:29 Dose: 25 mg Documented by: Cholecalciferol (Cholecalciferol (Vitamin D3) 25 Mcg Tab) 50 mcg PO DAILY [facility] Last Admin: 07/01/21 08:42 Dose: 50 mcg Documented by: Clopidogrel Bisulfate (Clopidogrel 75 Mg Tab) 75 mg PO DAILY [facility] Last Admin: 07/01/21 08:41 Dose: 75 mg Documented by: Docusate Sodium (Docusate Sodium 100 Mg Cap) 100 mg PO Q12H PRN PRN Reason: Constipation Furosemide (Furosemide 40 Mg/4 Ml Vial) 40 mg IVPUSH BIDDIURETIC [facility] Last Admin: 07/02/21 06:24 Dose: 40 mg Documented by: Ondansetron HCl (Ondansetron 4 Mg/2 Ml Sdv) 4 mg IV Q6H PRN PRN Reason: Nausea/Vomiting Potassium Chloride (Potassium Chloride 20 Meq Tab.Er) 20 meq PO DAILY [facility] Last Admin: 07/01/21 08:41 Dose: 20 meq Documented by: Saccharomyces Boulardii (Saccharomyces Boulardii (Probiotic) 250 Mg Cap) 250 mg PO DAILY [facility] Last Admin: 07/01/21 08:42 Dose: 250 mg Documented by: Senna/Docusate Sodium (Docusate Sodium/Sennosides 50-8.6 Mg Tab) 2 tab PO DAILY PRN PRN Reason: Constipation Last Admin: 07/01/21 08:42 Dose: 2 tab Documented by: Sertraline HCl (Sertraline 50 Mg Tab) 50 mg PO DAILY [facility] Last Admin: 07/01/21 08:41 Dose: 50 mg Documented by: Sodium Chloride (Sodium Chloride 0.9% 10 Ml Syringe) 10 ml FLUSH ASDIRECTED PRN PRN Reason: Keep Vein Open Last Admin: 06/29/21 20:29 Dose: 10 ml Documented by: Warfarin Sodium (Pharmacy To Dose - Warfarin) 0 dose .XX ASDIRECTED PRN PRN Reason: RX TO DOSE COUMADIN Discontinued Medications Furosemide (Furosemide 40 Mg/4 Ml Vial) 40 mg IVPUSH NOW ONE Stop: 06/29/21 10:31 Last Admin: 06/29/21 11:32 Dose: 40 mg Documented by: Furosemide (Furosemide 40 Mg/4 Ml Vial) 40 mg IVPUSH NOW ONE Stop: 06/29/21 15:01 Furosemide (Furosemide 40 Mg/4 Ml Vial) 40 mg IVPUSH NOW ONE Stop: 06/29/21 16:31 Last Admin: 06/29/21 17:20 Dose: 40 mg Documented by: Warfarin Sodium (Warfarin 4 Mg Tab) 4 mg PO QPM [facility] Stop: 06/29/21 21:00 Last Admin: 06/29/21 17:20 Dose: 4 mg Documented by: Warfarin Sodium (Warfarin 4 Mg Tab) 4 mg PO ONETIME ONE Stop: 06/30/21 18:01 Last Admin: 06/30/21 17:09 Dose: 4 mg Documented by: Warfarin Sodium (Pharmacy To Dose - Warfarin) 1 dose .XX ASDIRECTED [facility] Warfarin Sodium (Warfarin 4 Mg Tab) 4 mg PO ONETIME ONE Stop: 07/01/21 18:01 Last Admin: 07/01/21 17:43 Dose: 4 mg Documented by: - Exam Quality Assessment: DVT Prophylaxis. No: Supplemental Oxygen General: Alert, Oriented, Cooperative, No Acute Distress HEENT: Pupils Equal, Pupils Reactive, EOMI Neck: Supple, Trachea Midline Lungs: Clear to Auscultation, Normal Respiratory Effort Cardiovascular: Regular Rate, Regular Rhythm (Paced rhythm) GI/Abdominal Exam: Normal Bowel Sounds, Soft, Non-Tender, No Distention (Male) Exam: Deferred Back Exam: No: Normal Inspection (Patient has severe left-sided spastic hemiparesis) Extremities: Pedal Edema (Left leg). No: Normal Inspection, Normal Range of Motion (Left-sided spastic hemiparesis) Skin: Warm, Dry, Intact Neurological: No New Focal Deficit, Normal Speech Psy/Mental Status: Alert, Depressed (Tearful) - Patient Data Lab Results Last 24 hrs: Laboratory Results - last 24 hr 07/01/21 07/01/21 07/02/21 Range/Units 04:45 10:27 05:04 WBC 8.52 (4.23-9.07) K/mm3 RBC 5.76 (4.63-6.08) M/mm3 Hgb 16.7 (13.7-17.5) gm/dl Hct 54.9 H (40.1-51.0) % MCV 95.3 H (79.0-92.2) fl MCH 29.0 (25.7-32.2) pg MCHC 30.4 L (32.2-35.5) g/dl RDW Std Deviation 54.0 H (35.1-43.9) fL Plt Count 158 L (163-337) K/mm3 MPV 10.4 (9.4-12.3) fl Neut % (Auto) 59.7 (34.0-67.9) % Lymph % (Auto) 20.1 L (21.8-53.1) % [place] % (Auto) 13.3 H (5.3-12.2) % Eos % (Auto) 5.8 (0.8-7.0) Baso % (Auto) 0.5 (0.1-1.2) % Neut # (Auto) 5.10 (1.78-5.38) K/mm3 Lymph # (Auto) 1.71 (1.32-3.57) K/mm3 [place] # (Auto) 1.13 H (0.30-0.82) K/mm3 Eos # (Auto) 0.49 (0.04-0.54) K/mm3 Baso # (Auto) 0.04 (0.01-0.08) K/mm3 PT 19.5 H (9.7-12.0) SECONDS INR 1.84 Sodium (136-145) mEq/L Potassium (3.5-5.1) mEq/L Chloride (98-107) mEq/L Carbon Dioxide (21-32) mEq/L Anion Gap (5-15) BUN (7-18) mg/dL Creatinine (0.7-1.3) mg/dL Est Cr Clr Drug Dosing mL/min Estimated GFR (MDRD) (>60) mL/min BUN/Creatinine Ratio (14-18) Glucose (70-99) mg/dL Calcium (8.5-10.1) mg/dL Magnesium (1.8-2.4) mg/dL Total Bilirubin (0.2-1.0) mg/dL AST (15-37) U/L ALT (16-63) U/L Alkaline Phosphatase (46-116) U/L NT-Pro-B Natriuret Pep 2124 H (0-125) pg/mL Total Protein (6.4-8.2) g/dl Albumin (3.4-5.0) g/dl Globulin gm/dL Albumin/Globulin Ratio (1-2) 07/02/21 07/02/21 Range/Units 05:04 05:04 WBC (4.23-9.07) K/mm3 RBC (4.63-6.08) M/mm3 Hgb (13.7-17.5) gm/dl Hct (40.1-51.0) % MCV (79.0-92.2) fl MCH (25.7-32.2) pg MCHC (32.2-35.5) g/dl RDW Std Deviation (35.1-43.9) fL Plt Count (163-337) K/mm3 MPV (9.4-12.3) fl Neut % (Auto) (34.0-67.9) % Lymph % (Auto) (21.8-53.1) % [place] % (Auto) (5.3-12.2) % Eos % (Auto) (0.8-7.0) Baso % (Auto) (0.1-1.2) % Neut # (Auto) (1.78-5.38) K/mm3 Lymph # (Auto) (1.32-3.57) K/mm3 [place] # (Auto) (0.30-0.82) K/mm3 Eos # (Auto) (0.04-0.54) K/mm3 Baso # (Auto) (0.01-0.08) K/mm3 PT 20.3 H (9.7-12.0) SECONDS INR 1.92 Sodium 146 H (136-145) mEq/L Potassium 3.9 (3.5-5.1) mEq/L Chloride 106 (98-107) mEq/L Carbon Dioxide 30 (21-32) mEq/L Anion Gap 13.9 (5-15) BUN 64 H (7-18) mg/dL Creatinine 1.7 H (0.7-1.3) mg/dL Est Cr Clr Drug Dosing 43.11 mL/min Estimated GFR (MDRD) 40 (>60) mL/min BUN/Creatinine Ratio 37.6 H (14-18) Glucose 115 H (70-99) mg/dL Calcium 9.1 (8.5-10.1) mg/dL Magnesium 2.1 (1.8-2.4) mg/dL Total Bilirubin 1.0 (0.2-1.0) mg/dL AST 23 (15-37) U/L ALT 25 (16-63) U/L Alkaline Phosphatase 73 (46-116) U/L NT-Pro-B Natriuret Pep (0-125) pg/mL Total Protein 7.6 (6.4-8.2) g/dl Albumin 3.5 (3.4-5.0) g/dl Globulin 4.1 gm/dL Albumin/Globulin Ratio 0.9 L (1-2) Result Diagrams: 07/02/21 05:04 07/02/21 05:04 Sepsis Event Note - Evaluation Sepsis Screening Result: No Definite Risk - Focused Exam Vital Signs: Vital Signs Temp Pulse Resp BP BP Pulse Ox Pulse Ox 07/02/21 06:46 90 L 07/02/21 06:00 93 L 07/02/21 05:04 94 L 07/02/21 04:16 36.2 C 16 128/79 93 L 07/02/21 04:00 95 07/02/21 03:00 95 07/02/21 02:00 95 07/02/21 01:00 94 L 07/02/21 00:00 36.3 C 16 108/76 96 07/01/21 22:00 95 07/01/21 20:29 76 129/73 07/01/21 20:27 36.5 C 18 129/73 92 L 07/01/21 19:16 93 L - Problem List & Annotations (1) Acute exacerbation of CHF (congestive heart failure) SNOMED Code(s): 011566819, 30229772513290 Code(s): I50.9 - HEART FAILURE, UNSPECIFIED Status: Chronic Priority: High Current Visit: Yes Qualifiers: Heart failure type: diastolic Qualified Code(s): I50.33 - Acute on chronic diastolic (congestive) heart failure (2) Weakness SNOMED Code(s): 03665804 Code(s): R53.1 - WEAKNESS Status: Acute Priority: High Current Visit: Yes (3) Atrial fibrillation, chronic SNOMED Code(s): 221592113 Code(s): I48.20 - CHRONIC ATRIAL FIBRILLATION, UNSPECIFIED Status: Chronic Priority: Medium Current Visit: Yes (4) FTT (failure to thrive) in adult SNOMED Code(s): 493610210 Code(s): R62.7 - ADULT FAILURE TO THRIVE Status: Chronic Priority: High Current Visit: Yes - Problem List Review Problem List Initiated/Reviewed/Updated: Yes - Assessment Assessment:: The patient is a 71-year-old gentleman who has a number of chronic conditions. The patient is currently awaiting placement in rehab facility and or retirement facility.The patient will continue with the diuresis of 40 mg Lasix IV twice daily. Daily weights will continue to be monitored. SAYRA's will also be monitored. The patient's troponin is elevated but has been plateaued and this is likely secondary to his CHF exacerbation as well as depressed renal function. Repeat laboratory studies have been ordered for the patient. This is to mo nitor the patient's renal function. The patient's warfarin has been held. He is currently on Plavix.The patient's heart healthy diet with fluid restriction will also be continued. Oxygen therapy will be tapered to keep the patient on room air with saturations if necessary around 92 to 94%. The patient will likely need extensive rehabilitation and or retirement facility. 07/01/2021 The patient is a 71-year-old gentleman who will be kept in hospitalization kelsi anna to awaiting placement. Patient has chronic medical conditions along with left-sided spastic hemiparesis which is interfering with his ability to care for himself. Continue Lasix 40 mg IV twice daily. Daily weights will be monitored. The patient's input and output will be monitored. I also ordered repeat B-type natriuretic peptide. The patient does have depressed renal function and repeat laboratory studies have been ordered for this. The patient's previous warfarin had been held but this has been restarted due to his high risk of another stroke with his atrial fibrillation and pacemaker placement. Oxygen therapy continues as needed to keep his saturations around 92%. Physical therapy was ordered. The patient should be appropriate for discharge to retirement facility 1 to 2 days. 07/02/2021 The patient is a 71-year-old gentleman who had been admitted due to acute exacerbation of his congestive heart failure. The patient today is closer to his dry weight and his BNP has improved. The patient overall feels physically improved. The patient is tearful today and is somewhat depressed. I had a long discussion with the patient regarding end-of-life care and had recommended the consideration of palliative care and hospice. The patient has been struggling since his stroke 13 years ago and has a number of chronic conditions and reports that he is just "I am done" in terms of his healthcare treatment. Hospice consult has been submitted. The patient will be for now continued on his current medications. He also will have oxygen support necessary to keep his saturations around 92%. The patient will have repeat laboratory studies for the morning. This can change if the patient decides on palliative care. - Plan Plan:: Assessment- day of admission 06/29/2021 * 71-year-old male who presents to ED via [facility] from home with chest heaviness and dyspnea on minimal exertion that have been ongoing for about a week. * History of A. fib, AICD, heart failure, hypertension, carotid and endarterectomy, left carotid artery stenting, COPD, recurrent pneumonia, pneumothorax, urinary incontinence, arthritis, CVA with residual left hemiplegia, depression, bladder cancer. * Last seen in the ED on June 15 due to incarcerated small hernia which was reduced and he has had no problems since. * During that visit he was given extra dose of Lasix and his home dose was increased with an extra 20 mg in the evening for 5 days. He was also increased to 40 mg in the morning. He had prior been on 20 mg of Lasix in the morning. * Recently had his implanted cardiac defibrillator/pacemaker switched from his left upper chest to his right upper chest due to an infection. * Reports a minimal nonproductive cough * Was in [facility] in September due to Covid symptoms and was hospitalized for 3 weeks * Has been in and out of the retirement since then. * Has chronic atrial fibrillation and dependent edema which is worse on the left side * On Coumadin and his dosing was changed 2 weeks ago. INR was checked a few days ago and it was normal at 2.2. * 12-lead EKG was obtained showing an atrial paced rhythm at 70 bpm with right axis deviation. There are small Q waves in V1 and a prominent R wave is noted in V1 as well. Q waves in inferior leads. T wave inversion from V2 through V6 and inferior leads. T wave flattening is noted in lead I. QT segment is moderately prolonged. No real change from EKG on June 15. * Labs are obtained * WBC of 7.84. * Hemoglobin 15.3. * Hematocrit 49.4. * He is macrocytic. * Platelets 113,000. * Neutrophils are elevated at 68.8. * Magnesium is 2.0. * CK-MB is 2.4. * Troponin 0 0.092. * CRP is 3.9. * proBNP is 13,499. * INR is 1.91. * Sodium 143. * Potassium 4.7. * Chloride 107. * Carbon dioxide 26. * Anion gap 14.7. * BUN is 28. Creatinine 1.5. GFR is 46. * Glucose 106. * Calcium 8.8. * Total bilirubin 1.0. * AST is 26, ALT 36, alkaline phosphatase 66. * Protein is 6.9. * Albumin is 3.4. * SARS-CoV-2 RNA is negative. * UA is negative. * Chest x-ray is obtained showing cardiomegaly with an AICD and other incidental findings. * He is given 40 mg IV push Lasix and is subsequently admitted to the ICU as a medical floor overflow for CHF exacerbation. PLAN: Acute exacerbation of CHF (congestive heart failure) Atrial fibrillation, chronic Presence of combination internal cardiac defibrillator (ICD) and pacemaker Elevated troponin Elevated brain natriuretic peptide (BNP) level * Heart healthy (low sodium) diet * 1.5L fluid restriction * Telemetry * Hold home lasix * 40mg BID lasix IVP * Monitor electrolytes * Strict I&O * Daily weights * Re-check troponin today and CKMB at 1700 to ensure stability; Trend as needed * Echocardiogram ordered * [employer] consultation * Continue home warfarin with pharmacy to dose * Daily INR FTT (failure to thrive) in adult Weakness History of CVA with residual deficit Left hemiplegia Arthritis * PT/OT evaluation * CM/SW * Patient and would like SNF placement * Aspiration precautions * Fall precautions HTN (hypertension) * Lasix as above with no other BP meds * Monitor vital signs History of carotid endarterectomy History of left common carotid artery stent placement * Continue home plavix * Continue warfarin with pharmacy to dose * No acute concerns * Daily INR COPD (chronic obstructive pulmonary disease) H/O recurrent pneumonia History of pneumothorax * No acute concerns * No home chronic respiratory meds * PRN DuoNebs * Monitor vital signs Urinary incontinence History of bladder cancer * Frequent brief changes * Consider condom catheter * Anticipate increased urinary output with diuresing Depression * No acute concerns * Continue home sertraline * Spiritual care consultation Code status DNR/DNI PCP: Dr. Wan from [facility] DVT prophylaxis: Continue home plavix and warfarin with pharmacy to dose Social: Patient resides with at home. He has been in and out of the retirement multiple times. Both feel he will need SNF placement. Disposition: Patient mated to the floor for CHF exacerbation and monitoring of troponin. Likely discharge Friday to SNF.
--- NOTE | 2021-07-02 07:15 | PCM.EKG ---
#1 Interpretation EKG Date: 07/01/21 Time: 14:54 Rhythm: Other (Paced) Rate (Beats/Min): 73 [place]: Normal P-Wave: Present QRS: Normal ST-T: Normal QT: Normal Comparison: No Change EKG Interpretation Comments: Paced
[2021-07-02] MEDS: Clopidogrel 75 MG Tab PO SCH (09:31)
[2021-07-02] MEDS: Cholecalciferol (Vitamin D3) 25 MCG Tab PO SCH (09:31)
[2021-07-02] MEDS: Carvedilol 12.5 MG Tab PO SCH ×2 (09:31→21:15)
[2021-07-02] MEDS: Saccharomyces Boulardii (Probiotic) 250 MG Cap PO SCH (09:32)
[2021-07-02] MEDS: Sertraline 50 MG Tab PO SCH (09:32)
[2021-07-02] MEDS: Potassium Chloride 20 MEQ Tab.ER PO SCH (09:32)
[2021-07-02] MEDS: Acetaminophen 325 MG Tab PO PRN ×2 (09:40→21:15)
[2021-07-02] MEDS ORDERED: Warfarin 4 MG Tab PO SCH (18:00)
[2021-07-03] MEDS: Acetaminophen 325 MG Tab PO PRN (04:07)
[2021-07-03] MEDS: Furosemide 40 MG/4 ML VIAL IVPUSH SCH (06:21)
[2021-07-03] MEDS: Carvedilol 12.5 MG Tab PO SCH ×2 (07:51→08:49)
[2021-07-03] MEDS: Saccharomyces Boulardii (Probiotic) 250 MG Cap PO SCH ×2 (07:55→08:49)
[2021-07-03] MEDS: Potassium Chloride 20 MEQ Tab.ER PO SCH ×2 (07:55→08:50)
[2021-07-03] MEDS: Clopidogrel 75 MG Tab PO SCH ×2 (07:56→08:50)
[2021-07-03] MEDS: Sertraline 50 MG Tab PO SCH ×2 (07:56→08:50)
[2021-07-03] MEDS: Cholecalciferol (Vitamin D3) 25 MCG Tab PO SCH ×2 (07:58→08:50)
--- NOTE | 2021-07-03 09:32 | PCM.DCSUM1 ---
Discharge Summary - Hospital Course HPI Initial Comments: This is a 71-year-old male who presents to ED on 06/29/2021 via [facility] from home with chest heaviness and dyspnea on minimal exertion that have been ongoing for about a week. He was last seen in the ED on June 15 due to incarcerated small hernia which was reduced and he has had no problems since. During that visit he was given extra dose of Lasix and his home dose was increased with an extra 20 mg in the evening for 5 days. He was also increased to 40 mg in the morning. He had prior been on 20 mg of Lasix in the morning. He recently had his implanted cardiac defibrillator/pacemaker switched from his left upper chest to his right upper chest due to an infection. He reports a minimal nonproductive cough. He was in [facility] in September due to Covid symptoms and was hospitalized for 3 weeks. He reports he has been in and out of the intermediate since then. He has chronic atrial fibrillation and dependent edema which is worse on the left side. He is on Coumadin and his dosing was changed 2 weeks ago. INR was checked a few days ago and it was normal at 2.2. In the ED twelve-lead EKG was obtained showing an atrial paced rhythm at 70 bpm with right axis deviation. There are small Q waves in V1 and a prominent R wave is noted in V1 as well. Q waves in inferior leads. T wave inversion from V2 through V6 and inferior leads. T wave flattening is noted in lead I. QT segment is moderately prolonged. No real change from EKG on June 15. Temp is 36.2 Celsius. Pulse 70. Respirations 20. Blood pressure 127/67. Pulse ox 95%. Labs are obtained with a WBC of 7.84. Hemoglobin 15.3. Hematocrit 49.4. He is macrocytic. Platelets 113,000. Neutrophils are elevated at 68.8. Magnesium is 2.0. CK-MB is 2.4. Troponin 0 0.092. CRP is 3.9. proBNP is 13,000 499. INR is 1.91. Sodium 143. Potassium 4.7. Chloride 107. Carbon dioxide 26. Anion gap 14.7. BUN is 28. Creatinine 1.5. GFR is 46. Glucose 106. Calcium 8.8. Total bilirubin 1.0. AST is 26, ALT 36, alkaline phosphatase 66. Protein is 6.9. Albumin is 3.4. SARS-CoV-2 RNA is negative. UA is negative. Chest x-ray is obtained showing cardiomegaly with an AICD and other incidental findings. He is given 40 mg IV push Lasix and is subsequent admitted to the ICU as a medical floor overflow for CHF exacerbation. He carries a history of A. fib, AICD, heart failure, hypertension, carotid and endarterectomy, left carotid artery stenting, COPD, recurrent pneumonia, pneumothorax, urinary incontinence, arthritis, CVA with residual left hemiplegia, depression, bladder cancer. He is a DNR/DNI. His primary care provider is Dr. Logan Wan. Diagnosis: Stroke: No - Discharge Data Discharge Date: 07/03/21 (Admit date: 06/29/2021) Discharge Disposition: DC/Tfer to SNF 03 Condition: Good - Referral to Home Health Primary Care Physician: Logan Wan MD - Discharge Diagnosis/Problem(s) (1) Presence of combination internal cardiac defibrillator (ICD) and pacemaker SNOMED Code(s): 133800733 ICD Code: Z95.810 - PRESENCE OF AUTOMATIC (IMPLANTABLE) CARDIAC DEFIBRILLATOR Status: Chronic Priority: Low (2) HTN (hypertension) SNOMED Code(s): 14840100 ICD Code: I10 - ESSENTIAL (PRIMARY) HYPERTENSION Status: Chronic Priority: Medium Qualifiers: Hypertension type: unspecified Qualified Code(s): I10 - Essential (primary) hypertension (3) History of carotid endarterectomy SNOMED Code(s): 193895922, 368920056 ICD Code: Z98.890 - OTHER SPECIFIED POSTPROCEDURAL STATES Status: Chronic Priority: Low (4) History of left common carotid artery stent placement SNOMED Code(s): 786228425 ICD Code: Z98.890 - OTHER SPECIFIED POSTPROCEDURAL STATES; Z95.828 - PRESENCE OF OTHER VASCULAR IMPLANTS AND GRAFTS Status: Chronic Priority: Low (5) COPD (chronic obstructive pulmonary disease) SNOMED Code(s): 64951268 ICD Code: J44.9 - CHRONIC OBSTRUCTIVE PULMONARY DISEASE, UNSPECIFIED Status: Chronic Priority: Low Qualifiers: COPD type: unspecified COPD Qualified Code(s): J44.9 - Chronic obstructive pulmonary disease, unspecified (6) H/O recurrent pneumonia SNOMED Code(s): 110034759 ICD Code: Z87.01 - PERSONAL HISTORY OF PNEUMONIA (RECURRENT) Status: Chronic Priority: Low (7) History of pneumothorax SNOMED Code(s): 738943263 ICD Code: Z87.09 - PERSONAL HISTORY OF OTHER DISEASES OF THE RESPIRATORY SYSTEM Status: Chronic Priority: Low (8) Urinary incontinence SNOMED Code(s): 543488723 ICD Code: R32 - UNSPECIFIED URINARY INCONTINENCE Status: Chronic Priority: Medium Qualifiers: Urinary Incontinence type: unspecified incontinence Qualified Code(s): R32 - Unspecified urinary incontinence (9) Arthritis SNOMED Code(s): 1352630 ICD Code: M19.90 - UNSPECIFIED OSTEOARTHRITIS, UNSPECIFIED SITE Status: Chronic Priority: Low (10) History of CVA with residual deficit SNOMED Code(s): 468196397 ICD Code: I69.30 - UNSPECIFIED SEQUELAE OF CEREBRAL INFARCTION Status: Chronic Priority: Medium (11) Left hemiplegia SNOMED Code(s): 247406590 ICD Code: G81.94 - HEMIPLEGIA, UNSPECIFIED AFFECTING LEFT NONDOMINANT SIDE Status: Chronic Priority: Medium (12) Depression SNOMED Code(s): 96687343 ICD Code: F32.9 - MAJOR DEPRESSIVE DISORDER, SINGLE EPISODE, UNSPECIFIED Status: Chronic Priority: Low Qualifiers: Depression Type: other depression Qualified Code(s): F32.89 - Other specified depressive episodes (13) History of bladder cancer SNOMED Code(s): 624753353, 687755943 ICD Code: Z85.51 - PERSONAL HISTORY OF MALIGNANT NEOPLASM OF BLADDER Status: Chronic Priority: Low (14) Acute exacerbation of CHF (congestive heart failure) SNOMED Code(s): 350397441, 75272842399559 ICD Code: I50.9 - HEART FAILURE, UNSPECIFIED Status: Chronic Priority: High Qualifiers: Heart failure type: diastolic Qualified Code(s): I50.33 - Acute on chronic diastolic (congestive) heart failure (15) Atrial fibrillation, chronic SNOMED Code(s): 001942747 ICD Code: I48.20 - CHRONIC ATRIAL FIBRILLATION, UNSPECIFIED Status: Chronic Priority: Medium (16) FTT (failure to thrive) in adult SNOMED Code(s): 922245986 ICD Code: R62.7 - ADULT FAILURE TO THRIVE Status: Chronic Priority: High (17) Weakness SNOMED Code(s): 96484460 ICD Code: R53.1 - WEAKNESS Status: Acute Priority: High (18) Elevated troponin SNOMED Code(s): 260879695, 804232984, 369627635 ICD Code: R77.8 - OTHER SPECIFIED ABNORMALITIES OF PLASMA PROTEINS Status: Acute Priority: High (19) Elevated brain natriuretic peptide (BNP) level SNOMED Code(s): 731469239, 015970500 ICD Code: R79.89 - OTHER SPECIFIED ABNORMAL FINDINGS OF BLOOD CHEMISTRY Status: Acute Priority: High (20) Dental infection SNOMED Code(s): 039396609 ICD Code: K04.7 - PERIAPICAL ABSCESS WITHOUT SINUS Status: Acute Priority: Medium - Patient Summary/Data Consults: Consultations 06/29/21 14:01 Consult to Case Management/Aircraft Avionics Technician [CONS] Routine Consult to Elastic Attacher Zigzag [CONS] Routine Consult to Spiritual Care [CONS] Routine 06/29/21 14:03 OT Evaluation and Treatment [CONS] Routine PT Evaluation and Treatment [CONS] Routine 07/02/21 08:02 Consult to Hospice [CONS] Routine Labs Pending at D/C: Echocardiogram Recommended Follow-up Testing/Procedures: Follow-up with primary care provider within 7 days of discharge, sooner if needed * Patient's Lasix dosing was increased. * Please monitor patient's electrolytes due to increased Lasix dosing * Patient instructed to weigh himself daily and record this in a journal. Please review weight journal. * Patient noted to have left-sided maxillary dental infection. Started on antibiotic for this with dental follow-up. * We discussed hospice while patient was here. Patient and decided they are not ready yet. Follow-up with dentistry, Dr. Elise next available regarding dental infection Hospital Course: This is a 71-year-old male who presents to ED on 06/29/2021 via [facility] with chest heaviness and dyspnea on minimal exertion but have been ongoing for about a week. History of A. fib, AICD, heart failure, hypertension, carotid and endarterectomy, left carotid artery stenting, COPD, recurrent pneu monia, pneumothorax, urinary incontinence, arthritis, CVA with residual left hemiplegia, depression, bladder cancer. Patient was admitted for CHF exacerbation. He was placed on a fluid and sodium restricted diet. He was given 40 mg twice daily IV push Lasix with good diuresis. Echocardiogram was obtained and results are still pending. This will be forwarded to the patient's primary care provider. Prior to discharge she was down 11 pounds of weight. Troponin was noted to be elevated while here but was stable. He did see our dietitian. While here patient did note that he is tired of constant need for medical care. He did voice "I am done." Hospice was discussed and ultimately patient and his decided that they are not quite ready for this yet. They did acknowledge the patient was having difficulty at home. PT and OT did see the patient who are recommending SNF placement. Patient was ultimately accepted at [facility]. Prior to discharge patient was noting significant pain to left maxillary area. He was noted to have some edema to that area with apparent purulent drainage. Patient had had a tooth pulled from that area and has poor dentition all around. Was noted to have a black tooth next to the area where this was pulled. Because of this we will start the patient on penicillin VK 250 mg every 6 hours for 6 days and have the patient follow-up with his dentist, Dr. Elise. Dr. Elise was contacted and agreed to this plan and to see the patient after discharge. Appointment was made. Discharged on a heart healthy (sodium restricted) diet and 2 L fluid restriction. He will be discharged on 40 mg p.o. Lasix twice daily. Recommend PCP follow-up within 5 to 7 days of discharge, sooner if needed. Recommend primary care provider recheck CBC, CMP, and magnesium. Pay special attention to potassium with the change in patient's Lasix. Patient is directed to weigh himself daily and recorded in a journal. He should contact primary care provider if he notices a 3 pound weight gain in 1 day or 5 pound weight gain in 1 week. Recommend continue PT/OT at SNF. All other home medications were continued. Patient discharged to [facility] today. - Patient Instructions Diet: Low Sodium Fluid Restriction: 2000 mL Activity: As Tolerated Driving: Do Not Drive Showering/Bathing: May Shower Notify Provider of: Fever, Increased Pain, Nausea and/or Vomiting Other/Special Instructions: Primary care provider within 5 to 7 days of discharge, sooner if needed. Follow-up with dentistry, Dr. Willam Banks, at next available. It appears you have an infected tooth. We will prescribe an antibiotic for your tooth. Your Lasix dosing was increased. Be sure to take this new dosing. Continue PT/OT at [facility]. Take all home medications as directed. Please take 2 mg warfarin daily until Friday and then resume your normal home dosing. Weigh yourself daily and record this in a journal. Bring this journal with to all medical appointments. Contact your primary care provider if you notice a greater than 3 pound weight gain in 1 day or greater than 5 pound weight gain in 1 week. - Discharge Plan *PRESCRIPTION DRUG MONITORING PROGRAM REVIEWED*: No *COPY OF PRESCRIPTION DRUG MONITORING REPORT IN PATIENT BIRAHIMA: No Prescriptions/Med Rec: Furosemide [Lasix] 40 mg PO BID #40 tab Penicillin V Potassium 250 mg PO Q6H #24 tablet Home Medications: Home Meds Cholecalciferol (Vitamin D3) [Vitamin D3] 2,000 unit PO DAILY 09/12/20 [History] Clopidogrel [Plavix] 75 mg PO DAILY 09/12/20 [History] Potassium Chloride [Klor-Con M20] 20 meq PO DAILY 09/12/20 [History] Sertraline [Zoloft] 50 mg PO DAILY 09/12/20 [History] Ubidecarenone [Coq-10] 100 mg PO DAILY 09/12/20 [History] carvediloL [Carvedilol] 25 mg PO BID 09/12/20 [History] Acetaminophen [Tylenol] 500 mg PO ASDIRECTED PRN 06/15/21 [History] Lactobacillus Acidophilus [Acidophilus Lactobacillus] 1 gm MC DAILY 06/15/21 [History] Sennosides/Docusate Sodium [Senna Plus 8.6-50 mg Tablet] 2 tab PO DAILY PRN 06/15/21 [History] Warfarin Sodium [Jantoven] 2 mg PO ASDIRECTED 06/15/21 [History] Furosemide [Lasix] 40 mg PO BID #40 tab 07/03/21 [Rx] Penicillin V Potassium 250 mg PO Q6H #24 tablet 07/03/21 [Rx] Warfarin Sodium [Jantoven] 4 mg PO ASDIRECTED #0 07/03/21 [Rx] Oxygen Therapy Mode: Room Air Maintain SpO2% greater than: 90 Patient Handouts: Heart Failure Action Plan Forms: ED Department Discharge Referrals: [facility], dental [Other] - 07/11/21 1:30 pm (Please arrive at 1:20 for check in) Keny Arteaga MD [Ordering Only Provider] - 07/10/21 9:30 am (Please arrive at 9:15 to check in) - Discharge Summary/Plan Comment DC Time >30 min.: Yes Total # of Minutes for Discharge Time: 45 mins - General Info Date of Service: 07/03/21 Admission Dx/Problem (Free Text: Admission Diagnosis/Problem Admission Diagnosis/Problem Congestive heart failure Functional Status: Reports: Pain Controlled, Tolerating Diet, Ambulating, Urinating. Denies: New Symptoms - Review of Systems General: Reports: No Symptoms. Denies: Fever, Weakness, Fatigue, Malaise, Chills HEENT: Reports: No Symptoms. Denies: Headaches, Sore Throat Pulmonary: Reports: No Symptoms. Denies: Shortness of Breath, Pleuritic Chest Pain, Cough, Sputum, Wheezing Cardiovascular: Reports: Edema (chronic ). Denies: Chest Pain, Palpitations, Dyspnea on Exertion Gastrointestinal: Reports: No Symptoms. Denies: Abdominal Pain, Constipation, Diarrhea, Nausea, Vomiting Genitourinary: Reports: No Symptoms. Denies: Dysuria, Pain Musculoskeletal: Reports: No Symptoms Skin: Reports: No Symptoms. Denies: Cyanosis Neurological: Reports: No Symptoms, Pre-Existing Deficit (Left-sided hemiparesis), Difficulty Walking (Secondary to left-sided hemiparesis), Gait Disturbance (Secondary to left-sided hemiparesis). Denies: Confusion, Dizziness, Headache, Numbness, Syncope Psychiatric: Reports: No Symptoms. Denies: Confusion - Patient Data Vitals - Most Recent: Last Vital Signs Temp 97.5 F 07/03/21 04:52 Pulse 70 07/03/21 07:51 Resp 18 07/03/21 04:52 BP 144/86 H 07/03/21 07:51 Pulse Ox 88 L 07/03/21 04:52 Weight - Most Recent: 200 lb 14.4 oz I&O - Last 24 hours: Intake & Output 07/02/21 07/03/21 07/03/21 22:59 06:59 14:59 Intake Total 1400 300 Output Total 980 500 200 Balance 420 -200 -200 Lab Results - Last 24 hrs: Laboratory Results - last 24 hr 07/03/21 07/03/21 07/03/21 Range/Units 04:13 05:03 05:03 WBC 7.77 (4.23-9.07) K/mm3 RBC 5.46 (4.63-6.08) M/mm3 Hgb 16.0 (13.7-17.5) gm/dl Hct 51.3 H (40.1-51.0) % MCV 94.0 H (79.0-92.2) fl MCH 29.3 (25.7-32.2) pg MCHC 31.2 L (32.2-35.5) g/dl RDW Std Deviation 51.7 H (35.1-43.9) fL Plt Count 150 L (163-337) K/mm3 MPV 10.3 (9.4-12.3) fl Neut % (Auto) 59.6 (34.0-67.9) % Lymph % (Auto) 19.9 L (21.8-53.1) % [place] % (Auto) 13.4 H (5.3-12.2) % Eos % (Auto) 6.2 (0.8-7.0) Baso % (Auto) 0.5 (0.1-1.2) % Neut # (Auto) 4.63 (1.78-5.38) K/mm3 Lymph # (Auto) 1.55 (1.32-3.57) K/mm3 [place] # (Auto) 1.04 H (0.30-0.82) K/mm3 Eos # (Auto) 0.48 (0.04-0.54) K/mm3 Baso # (Auto) 0.04 (0.01-0.08) K/mm3 PT 26.5 H D (9.7-12.0) SECONDS INR 2.52 Sodium (136-145) mEq/L Potassium (3.5-5.1) mEq/L Chloride (98-107) mEq/L Carbon Dioxide (21-32) mEq/L Anion Gap (5-15) BUN (7-18) mg/dL Creatinine (0.7-1.3) mg/dL Est Cr Clr Drug Dosing mL/min Estimated GFR (MDRD) (>60) mL/min BUN/Creatinine Ratio (14-18) Glucose (70-99) mg/dL Calcium (8.5-10.1) mg/dL Magnesium (1.8-2.4) mg/dL Total Bilirubin (0.2-1.0) mg/dL AST (15-37) U/L ALT (16-63) U/L Alkaline Phosphatase (46-116) U/L Total Protein (6.4-8.2) g/dl Albumin (3.4-5.0) g/dl Globulin gm/dL Albumin/Globulin Ratio (1-2) SARS-CoV-2 RNA (BEBETO) Negative (NEGATIVE) 07/03/21 Range/Units 05:03 WBC (4.23-9.07) K/mm3 RBC (4.63-6.08) M/mm3 Hgb (13.7-17.5) gm/dl Hct (40.1-51.0) % MCV (79.0-92.2) fl MCH (25.7-32.2) pg MCHC (32.2-35.5) g/dl RDW Std Deviation (35.1-43.9) fL Plt Count (163-337) K/mm3 MPV (9.4-12.3) fl Neut % (Auto) (34.0-67.9) % Lymph % (Auto) (21.8-53.1) % [place] % (Auto) (5.3-12.2) % Eos % (Auto) (0.8-7.0) Baso % (Auto) (0.1-1.2) % Neut # (Auto) (1.78-5.38) K/mm3 Lymph # (Auto) (1.32-3.57) K/mm3 [place] # (Auto) (0.30-0.82) K/mm3 Eos # (Auto) (0.04-0.54) K/mm3 Baso # (Auto) (0.01-0.08) K/mm3 PT (9.7-12.0) SECONDS INR Sodium 143 (136-145) mEq/L Potassium 3.4 L (3.5-5.1) mEq/L Chloride 102 (98-107) mEq/L Carbon Dioxide 31 (21-32) mEq/L Anion Gap 13.4 (5-15) BUN 67 H (7-18) mg/dL Creatinine 1.5 H (0.7-1.3) mg/dL Est Cr Clr Drug Dosing 48.86 mL/min Estimated GFR (MDRD) 46 (>60) mL/min BUN/Creatinine Ratio 44.7 H (14-18) Glucose 113 H (70-99) mg/dL Calcium 8.5 (8.5-10.1) mg/dL Magnesium 2.1 (1.8-2.4) mg/dL Total Bilirubin 1.0 (0.2-1.0) mg/dL AST 27 (15-37) U/L ALT 30 (16-63) U/L Alkaline Phosphatase 69 (46-116) U/L Total Protein 7.1 (6.4-8.2) g/dl Albumin 3.3 L (3.4-5.0) g/dl Globulin 3.8 gm/dL Albumin/Globulin Ratio 0.9 L (1-2) SARS-CoV-2 RNA (BEBETO) (NEGATIVE) Med Orders - Current: Current Medications Acetaminophen (Acetaminophen 325 Mg Tab) 650 mg PO Q4H PRN PRN Reason: Pain (Mild 1-3)/fever Last Admin: 07/03/21 04:07 Dose: 650 mg Documented by: Albuterol/Ipratropium (Albuterol/Ipratropium 3.0-0.5 Mg/3 Ml Neb Soln) 3 ml NEB QIDRT PRN PRN Reason: wheezing/SOB/cough Carvedilol (Carvedilol 12.5 Mg Tab) 25 mg PO BID [facility] Last Admin: 07/03/21 08:49 Dose: Not Given Documented by: Cholecalciferol (Cholecalciferol (Vitamin D3) 25 Mcg Tab) 50 mcg PO DAILY [facility] Last Admin: 07/03/21 08:50 Dose: Not Given Documented by: Clopidogrel Bisulfate (Clopidogrel 75 Mg Tab) 75 mg PO DAILY [facility] Last Admin: 07/03/21 08:50 Dose: Not Given Documented by: Docusate Sodium (Docusate Sodium 100 Mg Cap) 100 mg PO Q12H PRN PRN Reason: Constipation Furosemide (Furosemide 40 Mg/4 Ml Vial) 40 mg IVPUSH BIDDIURETIC [facility] Last Admin: 07/03/21 06:21 Dose: 40 mg Documented by: Ondansetron HCl (Ondansetron 4 Mg/2 Ml Sdv) 4 mg IV Q6H PRN PRN Reason: Nausea/Vomiting Potassium Chloride (Potassium Chloride 20 Meq Tab.Er) 20 meq PO DAILY [facility] Last Admin: 07/03/21 08:50 Dose: Not Given Documented by: Saccharomyces Boulardii (Saccharomyces Boulardii (Probiotic) 250 Mg Cap) 250 mg PO DAILY [facility] Last Admin: 07/03/21 08:49 Dose: Not Given Documented by: Senna/Docusate Sodium (Docusate Sodium/Sennosides 50-8.6 Mg Tab) 2 tab PO DAILY PRN PRN Reason: Constipation Last Admin: 07/01/21 08:42 Dose: 2 tab Documented by: Sertraline HCl (Sertraline 50 Mg Tab) 50 mg PO DAILY [facility] Last Admin: 07/03/21 08:50 Dose: Not Given Documented by: Sodium Chloride (Sodium Chloride 0.9% 10 Ml Syringe) 10 ml FLUSH ASDIRECTED PRN PRN Reason: Keep Vein Open Last Admin: 06/29/21 20:29 Dose: 10 ml Documented by: Warfarin Sodium (Pharmacy To Dose - Warfarin) 0 dose .XX ASDIRECTED PRN PRN Reason: RX TO DOSE COUMADIN Discontinued Medications Furosemide (Furosemide 40 Mg/4 Ml Vial) 40 mg IVPUSH NOW ONE Stop: 06/29/21 10:31 Last Admin: 06/29/21 11:32 Dose: 40 mg Documented by: Furosemide (Furosemide 40 Mg/4 Ml Vial) 40 mg IVPUSH NOW ONE Stop: 06/29/21 15:01 Furosemide (Furosemide 40 Mg/4 Ml Vial) 40 mg IVPUSH NOW ONE Stop: 06/29/21 16:31 Last Admin: 06/29/21 17:20 Dose: 40 mg Documented by: Warfarin Sodium (Warfarin 4 Mg Tab) 4 mg PO QPM [facility] Stop: 06/29/21 21:00 Last Admin: 06/29/21 17:20 Dose: 4 mg Documented by: Warfarin Sodium (Warfarin 4 Mg Tab) 4 mg PO ONETIME ONE Stop: 06/30/21 18:01 Last Admin: 06/30/21 17:09 Dose: 4 mg Documented by: Warfarin Sodium (Pharmacy To Dose - Warfarin) 1 dose .XX ASDIRECTED [facility] Warfarin Sodium (Warfarin 4 Mg Tab) 4 mg PO ONETIME ONE Stop: 07/01/21 18:01 Last Admin: 07/01/21 17:43 Dose: 4 mg Documented by: Warfarin Sodium (Warfarin 4 Mg Tab) 4 mg PO QPM [facility] Stop: 07/02/21 18:01 Last Admin: 07/02/21 17:48 Dose: 4 mg Documented by: - Exam Quality Assessment: Reports: DVT Prophylaxis. Denies: Supplemental Oxygen, Urine Catheter General: Reports: Alert, Oriented, Cooperative, No Acute Distress HEENT: Reports: Pupils Equal, Pupils Reactive, Mucous Membr. Moist/[place] Neck: Reports: Supple, Trachea Midline Lungs: Reports: Clear to Auscultation, Normal Respiratory Effort Cardiovascular: Reports: Regular Rate, Regular Rhythm, Other (Paced rhythm) GI/Abdominal Exam: Normal Bowel Sounds, Soft, Non-Tender, No Distention (Male) Exam: Deferred Rectal (Males) Exam: Deferred Back Exam: Reports: Normal Inspection, Decreased Range of Motion Extremities: Non-Tender, Normal Capillary Refill, Pedal Edema (1+ left leg), Limited Range of Motion (Left-sided hemiparesis secondary to CVA). No: Leg Pain Skin: Reports: Warm, Dry, Intact Neurological: Reports: No New Focal Deficit Psy/Mental Status: Reports: Alert, Normal Affect, Normal Mood
== END 2021-07-03 10:44 | DRG 292 ==
LOC: JD.ED 10:04 → JD.ICU 12:49
PROVIDERS: ADMIT Internal Medicine; ATTEND Internal Medicine
DX: I11.0 Hypertensive heart disease with heart failure (principal); I48.20 Chronic atrial fibrillation, unspecified; I69.354 Hemiplegia and hemiparesis following cerebral infarction affecting left non-dominant side; D68.8 Other specified coagulation defects; Z86.73 Personal history of transient ischemic attack (TIA), and cerebral infarction without residual deficits; J44.9 Chronic obstructive pulmonary disease, unspecified; I50.33 Acute on chronic diastolic (congestive) heart failure; R62.7 Adult failure to thrive; M19.90 Unspecified osteoarthritis, unspecified site; Z85.828 Personal history of other malignant neoplasm of skin; R53.1 Weakness; Z88.6 Allergy status to analgesic agent; Z88.1 Allergy status to other antibiotic agents; Z91.041 Radiographic dye allergy status; Z79.01 Long term (current) use of anticoagulants; Z79.02 Long term (current) use of antithrombotics/antiplatelets; Z79.899 Other long term (current) drug therapy; R77.8 Other specified abnormalities of plasma proteins; R79.89 Other specified abnormal findings of blood chemistry; K04.7 Periapical abscess without sinus; Z20.822 Contact with and (suspected) exposure to COVID-19; Z51.5 Encounter for palliative care; F32.9 Major depressive disorder, single episode, unspecified; Z66 Do not resuscitate; R32 Unspecified urinary incontinence; Z85.51 Personal history of malignant neoplasm of bladder; Z68.27 Body mass index [BMI] 27.0-27.9, adult; Z87.01 Personal history of pneumonia (recurrent); Z86.16 Personal history of COVID-19; Z95.810 Presence of automatic (implantable) cardiac defibrillator; Z87.09 Personal history of other diseases of the respiratory system
CPT/HCPCS: 36415; 71045; 80053; 82553; 83735; 83880; 84484; 85025; 85610; 86140; 93005; 96374; 99285; J1940; U0002; 81001; 93010; 93306; 97110-GP; 97162-GP; 97530-GP; 99223; 99233; 99239; A9270-GY

== ENCOUNTER 2022-02-12 15:52 | Emergency (ER) | payer MEDICARE, BC ==
[2022-02-12] MEDS: Sodium Chloride 0.9% 10 ML Syringe FLUSH PRN (16:38)
[2022-02-12] MEDS: Acetaminophen 325 MG Tab PO ONE (17:27)
[2022-02-12 17:33] LABS: CORONAVIRUS COVID-19 NAA NEGATIVE (NEGATIVE)
[2022-02-12] MEDS: Sodium Chloride 0.9% 1,000 ML IV SCH (17:49)
[2022-02-12] MEDS: Doxycycline 100 MG Cap PO STA (19:54)
== END 2022-02-12 20:17 | disposition home or self-care (01) ==
LOC: JD.ED 15:52
DX: J18.9 Pneumonia, unspecified organism (principal); I48.91 Unspecified atrial fibrillation; I11.0 Hypertensive heart disease with heart failure; F32.A Depression, unspecified; Z20.822 Contact with and (suspected) exposure to COVID-19; Z79.899 Other long term (current) drug therapy; Z88.1 Allergy status to other antibiotic agents; Z88.6 Allergy status to analgesic agent; Z91.041 Radiographic dye allergy status
CPT/HCPCS: 0240U; 36415; 70450; 70450-26; 71045; 71045-26; 74176; 74176-26; 80053; 81003; 83605; 83735; 85025; 86140; 87040; 93005; 93010; 99285; 99285-25; A9270-GY; J3490; J7030

== ENCOUNTER 2022-02-16 17:55 | Inpatient (IN) | payer MEDICARE, BC ==
[2022-02-16] MEDS ORDERED: Furosemide 40 MG/4 ML VIAL IVPUSH ONE (21:34)
[2022-02-16 21:48] LABS: CORONAVIRUS COVID-19 NAA NEGATIVE (NEGATIVE)
[2022-02-17] MEDS: Carvedilol 12.5 MG Tab PO SCH ×2 (06:55→18:14)
[2022-02-17] MEDS ORDERED: Furosemide 40 MG/4 ML VIAL IVPUSH ONE (08:15)
[2022-02-17] MEDS: Sertraline 50 MG Tab PO SCH (08:23)
[2022-02-17] MEDS: Clopidogrel 75 MG Tab PO SCH (08:23)
[2022-02-17] MEDS ORDERED: Ondansetron 4 MG/2 ML SDV IVPUSH PRN (09:50)
[2022-02-17] MEDS ORDERED: Acetaminophen 325 MG Tab PO PRN (09:52)
[2022-02-17] MEDS: Potassium Chloride 20 MEQ Tab.ER PO SCH (10:05)
[2022-02-17] MEDS ORDERED: Warfarin 4 MG Tab PO SCH (18:00)
[2022-02-17] MEDS: atorvaSTATin 20 MG Tab PO SCH (20:34)
[2022-02-18] MEDS: Carvedilol 12.5 MG Tab PO SCH ×2 (08:34→17:37)
[2022-02-18] MEDS: Potassium Chloride 20 MEQ Tab.ER PO SCH (08:35)
[2022-02-18] MEDS: Sertraline 50 MG Tab PO SCH (08:35)
[2022-02-18] MEDS: Clopidogrel 75 MG Tab PO SCH (08:36)
[2022-02-18] MEDS ORDERED: Warfarin 3 MG Tab PO SCH (18:00)
[2022-02-18] MEDS ORDERED: Magnesium Hydroxide 400 MG/5 ML Susp 30 ML Cup PO ONE (22:25)
[2022-02-18] MEDS: atorvaSTATin 20 MG Tab PO SCH (22:32)
[2022-02-19] MEDS: Carvedilol 12.5 MG Tab PO SCH ×3 (05:32→17:37)
[2022-02-19] MEDS: Furosemide 40 MG/4 ML VIAL IVPUSH SCH (08:01)
[2022-02-19] MEDS: Potassium Chloride 20 MEQ Tab.ER PO SCH (08:01)
[2022-02-19] MEDS: Sertraline 50 MG Tab PO SCH (08:01)
[2022-02-19] MEDS: Clopidogrel 75 MG Tab PO SCH (08:01)
[2022-02-19] MEDS ORDERED: Warfarin 3 MG Tab PO SCH (18:00)
[2022-02-19] MEDS: atorvaSTATin 20 MG Tab PO SCH (20:16)
[2022-02-20] MEDS: Carvedilol 12.5 MG Tab PO SCH ×2 (07:53→17:17)
[2022-02-20] MEDS: Furosemide 40 MG/4 ML VIAL IVPUSH SCH (08:00)
[2022-02-20] MEDS: Clopidogrel 75 MG Tab PO SCH (08:00)
[2022-02-20] MEDS: Sertraline 50 MG Tab PO SCH (08:00)
[2022-02-20] MEDS: Potassium Chloride 20 MEQ Tab.ER PO SCH (08:00)
[2022-02-20] MEDS ORDERED: Warfarin 3 MG Tab PO SCH (18:00)
[2022-02-20] MEDS: atorvaSTATin 20 MG Tab PO SCH (20:36)
[2022-02-21] MEDS: Carvedilol 12.5 MG Tab PO SCH (06:50)
[2022-02-21] MEDS: Potassium Chloride 20 MEQ Tab.ER PO SCH (09:08)
[2022-02-21] MEDS: Furosemide 40 MG/4 ML VIAL IVPUSH SCH (09:08)
[2022-02-21] MEDS: Clopidogrel 75 MG Tab PO SCH (09:09)
[2022-02-21] MEDS: Sertraline 50 MG Tab PO SCH (09:09)
[2022-02-21] MEDS ORDERED: Warfarin 3 MG Tab PO SCH (18:00)
== END 2022-02-21 13:20 | DRG 291 ==
LOC: JD.ED 17:55 → JD.MS 23:54
PROVIDERS: ADMIT Internal Medicine; ATTEND Internal Medicine
DX: I50.9 Heart failure, unspecified (principal); N28.9 Disorder of kidney and ureter, unspecified; R77.8 Other specified abnormalities of plasma proteins; H91.93 Unspecified hearing loss, bilateral; I48.91 Unspecified atrial fibrillation; I11.0 Hypertensive heart disease with heart failure; I50.33 Acute on chronic diastolic (congestive) heart failure; J96.21 Acute and chronic respiratory failure with hypoxia; R32 Unspecified urinary incontinence; M19.90 Unspecified osteoarthritis, unspecified site; I69.354 Hemiplegia and hemiparesis following cerebral infarction affecting left non-dominant side; J96.11 Chronic respiratory failure with hypoxia; R64 Cachexia; Z66 Do not resuscitate; J44.9 Chronic obstructive pulmonary disease, unspecified; Z88.8 Allergy status to other drugs, medicaments and biological substances; Z88.1 Allergy status to other antibiotic agents; Z91.041 Radiographic dye allergy status; K21.9 Gastro-esophageal reflux disease without esophagitis; Z79.02 Long term (current) use of antithrombotics/antiplatelets; Z96.641 Presence of right artificial hip joint; Z20.822 Contact with and (suspected) exposure to COVID-19; M54.2 Cervicalgia; F32.A Depression, unspecified; R62.7 Adult failure to thrive; Z68.26 Body mass index [BMI] 26.0-26.9, adult; Z95.810 Presence of automatic (implantable) cardiac defibrillator; Z79.899 Other long term (current) drug therapy; Z79.01 Long term (current) use of anticoagulants; Z86.16 Personal history of COVID-19; Z87.01 Personal history of pneumonia (recurrent); Z85.51 Personal history of malignant neoplasm of bladder; Z95.828 Presence of other vascular implants and grafts; Z87.09 Personal history of other diseases of the respiratory system; Z85.828 Personal history of other malignant neoplasm of skin; Z98.890 Other specified postprocedural states; Z90.89 Acquired absence of other organs; Z90.49 Acquired absence of other specified parts of digestive tract
CPT/HCPCS: 0240U; 36415; 70490; 71045; 80053; 83880; 84443; 84484; 85025; 85027; 85610; 87641; 93005; 93306; 94760; 94761; 96374; 97110; 97116; 97162; 99285; 93010; A9270-GY; J1940; U0002

== ENCOUNTER 2022-03-19 10:00 | Inpatient (IN) | payer MEDICARE, BC ==
[2022-03-19] MEDS ORDERED: Sodium Chloride 0.9% 10 ML Syringe FLUSH PRN (10:09)
[2022-03-19 11:26] LABS: CORONAVIRUS COVID-19 NAA NEGATIVE (NEGATIVE)
[2022-03-19] MEDS ORDERED: Furosemide 40 MG/4 ML VIAL IVPUSH ONE (11:45)
[2022-03-19] MEDS ORDERED: Temazepam 7.5 MG Cap PO PRN (13:00)
[2022-03-19] MEDS ORDERED: oxyCODONE 5 MG Tab PO PRN (13:00)
[2022-03-19] MEDS: Ondansetron 4 MG Tab.DIS PO PRN (17:13)
[2022-03-19] MEDS: Carvedilol 12.5 MG Tab PO SCH (20:18)
[2022-03-19] MEDS: Clopidogrel 75 MG Tab PO SCH (20:18)
[2022-03-19] MEDS: Sertraline 50 MG Tab PO SCH (20:19)
[2022-03-19] MEDS: Famotidine 20 MG Tab PO SCH (20:19)
[2022-03-19] MEDS: Warfarin 3 MG Tab PO SCH (20:19)
[2022-03-20] MEDS: Ondansetron 4 MG Tab.DIS PO PRN (00:30)
[2022-03-20] MEDS ORDERED: Furosemide 20 MG Tab PO SCH (08:00)
[2022-03-20] MEDS: Furosemide 20 MG Tab PO SCH (08:36)
[2022-03-20] MEDS: Carvedilol 12.5 MG Tab PO SCH ×2 (08:37→20:22)
[2022-03-20] MEDS: Potassium Chloride 20 MEQ Tab.ER PO SCH (08:41)
[2022-03-20] MEDS ORDERED: ALPRAZolam 0.25 MG Tab PO PRN (11:53)
[2022-03-20] MEDS: Triamcinolone Acetonide 0.5% Crm 15 GM Tube TOP SCH ×2 (12:36→20:24)
[2022-03-20] MEDS: Warfarin 3 MG Tab PO SCH (18:08)
[2022-03-20] MEDS: Sertraline 50 MG Tab PO SCH (20:22)
[2022-03-20] MEDS: Famotidine 20 MG Tab PO SCH (20:22)
[2022-03-20] MEDS: Clopidogrel 75 MG Tab PO SCH (20:22)
[2022-03-21] MEDS: Potassium Chloride 20 MEQ Tab.ER PO SCH (08:13)
[2022-03-21] MEDS: Acetaminophen 325 MG Tab PO PRN ×2 (08:14→18:32)
[2022-03-21] MEDS: Furosemide 20 MG Tab PO SCH (08:15)
[2022-03-21] MEDS: Carvedilol 12.5 MG Tab PO SCH ×2 (08:15→20:12)
[2022-03-21] MEDS: Triamcinolone Acetonide 0.5% Crm 15 GM Tube TOP SCH ×2 (08:16→20:13)
[2022-03-21] MEDS ORDERED: Furosemide 40 MG Tab PO SCH (14:00)
[2022-03-21] MEDS: Sertraline 50 MG Tab PO SCH (20:12)
[2022-03-21] MEDS: Famotidine 20 MG Tab PO SCH (20:12)
[2022-03-21] MEDS: Clopidogrel 75 MG Tab PO SCH (20:12)
[2022-03-22] MEDS: Potassium Chloride 20 MEQ Tab.ER PO SCH (08:34)
[2022-03-22] MEDS: Carvedilol 12.5 MG Tab PO SCH (08:34)
[2022-03-22] MEDS: Triamcinolone Acetonide 0.5% Crm 15 GM Tube TOP SCH (08:34)
[2022-03-22] MEDS: Furosemide 20 MG Tab PO SCH (08:34)
[2022-03-22] MEDS ORDERED: Warfarin Sliding Scale PO SCH (18:00)
== END 2022-03-22 13:18 | DRG 291 ==
LOC: JD.ED 10:00 → JD.MS 12:08
PROVIDERS: ADMIT Internal Medicine; ATTEND Internal Medicine
DX: I13.0 Hypertensive heart and chronic kidney disease with heart failure and stage 1 through stage 4 chronic kidney disease, or unspecified chronic kidney disease (principal); I50.9 Heart failure, unspecified; N18.9 Chronic kidney disease, unspecified; H91.93 Unspecified hearing loss, bilateral; I50.33 Acute on chronic diastolic (congestive) heart failure; I69.954 Hemiplegia and hemiparesis following unspecified cerebrovascular disease affecting left non-dominant side; Z95.828 Presence of other vascular implants and grafts; R62.7 Adult failure to thrive; N18.32 Chronic kidney disease, stage 3b; Z66 Do not resuscitate; H91.90 Unspecified hearing loss, unspecified ear; I69.354 Hemiplegia and hemiparesis following cerebral infarction affecting left non-dominant side; I48.91 Unspecified atrial fibrillation; J44.9 Chronic obstructive pulmonary disease, unspecified; K21.9 Gastro-esophageal reflux disease without esophagitis; Z88.1 Allergy status to other antibiotic agents; Z91.041 Radiographic dye allergy status; Z88.6 Allergy status to analgesic agent; Z96.649 Presence of unspecified artificial hip joint; R32 Unspecified urinary incontinence; M19.90 Unspecified osteoarthritis, unspecified site; F32.A Depression, unspecified; Z85.51 Personal history of malignant neoplasm of bladder; Z85.828 Personal history of other malignant neoplasm of skin; Z86.16 Personal history of COVID-19; Z86.19 Personal history of other infectious and parasitic diseases; Z95.0 Presence of cardiac pacemaker; Z79.02 Long term (current) use of antithrombotics/antiplatelets; Z79.01 Long term (current) use of anticoagulants; Z95.810 Presence of automatic (implantable) cardiac defibrillator; Z87.01 Personal history of pneumonia (recurrent); Z79.899 Other long term (current) drug therapy; Z91.09 Other allergy status, other than to drugs and biological substances; Z88.8 Allergy status to other drugs, medicaments and biological substances; Z90.49 Acquired absence of other specified parts of digestive tract; Z98.890 Other specified postprocedural states; Z20.822 Contact with and (suspected) exposure to COVID-19
CPT/HCPCS: 0240U; 36415; 71045; 80053; 81001; 82947; 83605; 83735; 83880; 84484; 85025; 85610; 86140; 87040; 87641; 93005; 94760; 96374; 99285; 93010; 99223; 99232; 99233; 99239; A9270-GY; J1940; J3490; U0002